=== PATIENT | female | born 1940 | race Caucasian/White ===

== ENCOUNTER → 2018-03-25 | Outpatient (CLI) | payer OTHER ==
[~2018-03-25] MED LIST: ATEN100 PO; ATEN50; CILO50 PO; CLOP75 PO; HCTZ; HYDCHL25 PO; LEVSOD50 PO; LOVA40 PO; LOVAZA
[2018-03-25 12:04] LABS: BASOPHILS ABSOLUTE AUTO 0.03 K/mm3 (0.00-0.23); BASOPHILS PERCENT AUTO 1 % (0-2); EOSINOPHILS PERCENT AUTO 2 % (0-6); Hematocrit 39.6 % (33.0-51.0); Hemoglobin 13.7 g/dL (11.5-16.0); IMMATURE GRAN ABSOLUTE AUTO 0.01 K/mm3 (0.00-0.10); IMMATURE GRAN PERCENT AUTO 0 % (0-1); LYMPHOCYTES ABSOLUTE AUTO 1.38 K/mm3 (0.84-5.20); LYMPHOCYTES PERCENT AUTO 23 % (21-46); MONOCYTES ABSOLUTE AUTO 0.54 K/mm3 (0.16-1.47); MONOCYTES PERCENT AUTO 9 % (4-13); Mean Corpuscular HGB 30.4 pg (26.0-34.0); Mean Corpuscular HGB Conc 34.6 g/dL (31.5-36.5); Mean Corpuscular Volume 88 fL (80-100); Mean Platelet Volume 10.5 fL (9.1-12.4); NEUTROPHILS ABSOLUTE AUTO 3.93 K/mm3 (1.96-9.15); NEUTROPHILS PERCENT AUTO 66 % (41-73); Platelet Count 221 K/mm3 (150-400); RDW Coefficient Variation 14.1 % (11.7-14.2); RDW Standard Deviation 44.8 fL (35.1-46.3); White Blood Cell Count 5.99 K/mm3 (4.00-11.30)
[2018-03-25 12:16] LABS: Albumin, Blood 3.7 g/dL (3.4-5.0); Albumin/Globulin Ratio 0.9 (0.8-1.8); Bilirubin, Total 0.4 mg/dL (0.1-1.0); Calcium, Blood 9.4 mg/dL (8.5-10.1); Potassium, Blood 3.5 mmol/L (3.5-5.5); Total Protein, Blood 7.7 g/dL (6.4-8.2)
== END ==
LOC: LAB EV 11:57 → LAB SHORT 11:57
PROVIDERS: Physician Assistant
DX: L03.119 Cellulitis of unspecified part of limb (principal); R06.00 Dyspnea, unspecified
CPT/HCPCS: 80053; 83880; 85025

== ENCOUNTER → 2019-03-18 | Outpatient (CLI) | payer OTHER ==
[~2019-03-18] MED LIST changes: +CILO100 PO; +CYCL0.05OP; +EUTHYROX88 MCG PO; +Lovastatin10 MG PO; +Prinivil10 MG PO
== END | disposition home or self-care (01) ==
LOC: LAB SHORT 07:35 → LAB EV 07:35
DX: L08.9 Local infection of the skin and subcutaneous tissue, unspecified (principal)
CPT/HCPCS: 87070; 87075; 87077; 87147; 87186; 87205

== ENCOUNTER 2019-06-20 10:48 | Day surgery (SDC) | payer OTHER ==
[~2019-06-20] VITALS: Ht 162.6 cm; Wt 79.6 kg
--- NOTE | 2019-06-20 11:52 | NUR ---
06/20/[address] LUEVANO NOTIFIED OF PT'S ELEVATED BLOOD PRESSURE'S. SEE VITAL SIGNS. NO NEW ORDERS GIVEN.
== END 2019-06-20 14:00 | disposition home or self-care (01) ==
LOC: ORSCSDS 10:48
PROVIDERS: Podiatrist Foot & Ankle Surgery
PROC: 0SGP04Z Fusion of Right Toe Phalangeal Joint with Internal Fixation Device, Open Approach (ICD-10-PCS; principal; 2019-06-20 12:00)
DX: M20.41 Other hammer toe(s) (acquired), right foot (principal); I10 Essential (primary) hypertension; E03.9 Hypothyroidism, unspecified; E78.5 Hyperlipidemia, unspecified; Z79.899 Other long term (current) drug therapy
CPT/HCPCS: 93005; 93010; J0690; J2250; J2704; J3010; J7120

== ENCOUNTER 2019-08-05 09:43 | Observation (INO) | payer OTHER ==
[~2019-08-05] VITALS: Ht 160 cm; Wt 79.2 kg
[~2019-08-05 09:43] MED LIST changes: +CEPH250A PO
--- NOTE | 2019-08-05 17:05 | NUR ---
PT FEELING FINE, UP TO BR WITH ASSISTANCE OF 1 STAFF. VOIDED, PT BACK TO BAY 1 AND SITTING IN CHAIR. DISCHARGE GONE OVER WITH DAUGHTER AND PT, PT STATES SHE'S FEELING DIZZY AND BECOMES UNRESPONSIVE WITH SNORING RESPIRATIONS. PT PALE AND NOT RESPONDING TO QUESTIONS, HAS PULSE AND IS BREATHING. HELP CALLED TO RECOVERY ROOM. PT BACK TO BED WITH ASSISTANCE AND PLACED ON MONITOR. HEART MONITOR SHOWS AFIB. EKG CONFIRMS AFIB. HORSE DOCTOR, DR. BARCLAY, NOTIFIED AND SEEN PT. PT HAS CONVERTED BACK INTO SINUS RHYTHM AND GOES IN AND OUT OF AFIB. PT TO BE ADMITTED TO HOSPITALIST OVER NIGHT. DAUGHTER REMAINS WITH PT.
[2019-08-05 19:17] LABS: BASOPHILS ABSOLUTE AUTO 0.05 K/mm3 (0.00-0.23); BASOPHILS PERCENT AUTO 0 % (0-2); EOSINOPHILS ABSOLUTE AUTO 0.02 K/mm3 (0.00-0.68); EOSINOPHILS PERCENT AUTO 0 % (0-6); Hematocrit 37.9 % (33.0-51.0); Hemoglobin 12.6 g/dL (11.5-16.0); IMMATURE GRAN ABSOLUTE AUTO 0.07 K/mm3 (0.00-0.10); IMMATURE GRAN PERCENT AUTO 1 % (0-1); LYMPHOCYTES ABSOLUTE AUTO 1.03 K/mm3 (0.84-5.20); LYMPHOCYTES PERCENT AUTO 8 % (21-46); MONOCYTES ABSOLUTE AUTO 0.63 K/mm3 (0.16-1.47); MONOCYTES PERCENT AUTO 5 % (4-13); Mean Corpuscular HGB 30.7 pg (26.0-34.0); Mean Corpuscular HGB Conc 33.2 g/dL (31.5-36.5); Mean Corpuscular Volume 92 fL (80-100); Mean Platelet Volume 10.5 fL (9.1-12.4); NEUTROPHILS ABSOLUTE AUTO 12.01 K/mm3 (1.96-9.15); NEUTROPHILS PERCENT AUTO 87 % (41-73); Platelet Count 236 K/mm3 (150-400); RDW Coefficient Variation 13.5 % (11.7-14.2); RDW Standard Deviation 45.7 fL (35.1-46.3); Red Blood Cell Count 4.11 M/mm3 (3.80-5.20); White Blood Cell Count 13.81 K/mm3 (4.00-11.30)
[2019-08-05 19:40] LABS: Alanine Aminotransfer (ALT/SGP 28 U/L (12-78); Albumin/Globulin Ratio 0.9 (0.8-1.8); Alk Phos 57 U/L (50-136); Anion Gap 7 mmol/L (6-16); Aspartate Aminotrans (AST/SGOT 21 U/L (12-37); Bilirubin, Total 0.4 mg/dL (0.1-1.0); Blood Urea Nitrogen 17 mg/dL (8-24); Bun/Creatinine Ratio 24.6 (12.0-20.0); CO2, Blood 25 mmol/L (21-32); Calcium, Blood 8.9 mg/dL (8.5-10.1); Chloride, Blood 110 mmol/L (98-108); Creatinine, Blood 0.69 mg/dL (0.40-1.00); Globulin, Blood 3.3 g/dL (2.2-4.0); Glomerular Filtration Rate >60 (60-); Glucose, Blood 130 mg/dL (70-99); Magnesium, Blood 1.9 mg/dL (1.6-2.4); Potassium, Blood 3.7 mmol/L (3.5-5.5); Sodium, Blood 142 mmol/L (136-145); Total Protein, Blood 6.3 g/dL (6.4-8.2)
--- NOTE | 2019-08-05 19:45 | NUR ---
Assumed care of pt at approx 1920. Pt taken to CT then imaging to pt room for cxr. Pt alert and oriented, answers questions appropriately but with slight delay. Pt appears mildly lethargic, resting with eyes closed. VSS and pt breathing easy, even, unlabored at rest on RA. NSR on tele. See admission assessment for detailed systems assessment. Pt with gangrenous R second toe being seen and cared for as outpatient per pt and MD notes. L groin access site with quarter sized dried bloody drainage on angioseal. No acute concerns to note at this time, will continue to monitor and provide care per orders.
--- NOTE | 2019-08-06 00:40 | NUR ---
Pt up to bedside commode. Pt standing for first time since syncopal episode. She denies dizziness, SOB, lightheadedness. No changes noted on tele with ambulation/transfer.
[2019-08-06 01:27] LABS: Anion Gap 7 mmol/L (6-16); Blood Urea Nitrogen 21 mg/dL (8-24); Bun/Creatinine Ratio 29.3 (12.0-20.0); CHOL/HDL RATIO 4.3; CO2, Blood 26 mmol/L (21-32); Calcium, Blood 8.9 mg/dL (8.5-10.1); Chloride, Blood 111 mmol/L (98-108); Cholesterol 155 mg/dL (50-200); Creatinine, Blood 0.72 mg/dL (0.40-1.00); Glomerular Filtration Rate >60 (60-); Glucose, Blood 124 mg/dL (70-99); HDL Cholesterol 36 mg/dL (>39); LDL/HDL RATIO 2.7; Low Density Lipoprotein Chol 98 mg/dL (0-110); Potassium, Blood 3.9 mmol/L (3.5-5.5); Sodium, Blood 144 mmol/L (136-145); Triglycerides 107 mg/dL (30-160); Very Low Density Lipoprot Chol 21 mg/dL (6-32)
--- NOTE | 2019-08-06 05:19 | NUR ---
SHIFT SUMMARY VSS this shift, no acute concerns to note overnight. Pt denies sx of lightheadedness or dizziness with ambulation, denies SOB or chest pain. Pt remains in NSR throughout this shift and no events on tele. No acute changes from initial shift assessment. She is alert and oriented, calls appropriately, makes needs known. Up to the bsc x1 this shift. Pt remains on RA R second toe wound noted and L groin access site unchanged from initial assessment. Pt with 2+ pitting edema to BLE. Pt denies need for pain medication this shift. Pt has slept on and off throughout majority of shift. Will continue to monitor and provide care until report off to day RN.
--- NOTE | 2019-08-06 08:30 | NUR ---
AM NOTE. ASSUMED CARE OF PT APROX 0700, PT IS A&Ox4 AND S/P REVASC RLE. ANGIO SITE IS INTACT WITH SMALL AMOUNT OF DRY BLOOD NOTED ON THE CHG DRESSING. PT'S VS STABLE AT THIS TIME. PT DENIES CHEST PAIN/PRESSURE, N/V OR SOB AT THIS TIME. PT IS ON RA, L/S CLEAR IN THE UPPER LOBES W/FINE CRACKLES NOTED IN THE LOWER LOBES. PT HAS 2+ EDEMA TO HER BLE PEDEAL PULSES ARE FAINT BUT PRESENT BILATERALLY. PT'S RIGHT MID TOE IS BLACK AND GANGRENOUS, PT IS GETTING TREATED ON OUT PT BASIS FOR THIS. CARDIOLOGY PROVIDER AT THE BEDSIDE, PT IS TO HAVE ANGIO IN THE AM, CONSENT SIGNED IN THE ROOM. CALL LIGHT IN REACH, BED IS LOCKED AND LOW WILL CONTINUE TO MONITOR.
[2019-08-06 12:37] LABS: International Normalized Ratio 1.21; Prothrombin Time Results 12.6 Sec (9.7-11.5)
--- NOTE | 2019-08-06 17:37 | NUR ---
SHIFT SUMMARY. NO ACUTE CHANGES NOTED THIS SHIFT. PT'S VS STABLE, NO EVENTS NOTED ON TELE. PT IS TO BE NPO AFTER MIDNIGHT FOR ANGIO IN THE AM. PT DENIES ANY CHEST PAIN/PRESSURE, N/V OR SOB. PT HAS BEEN SBA TO THE BSC. NO CHANGES, SWELLING, BLEEDING OR HEMATOMA NOTED TO THE LEFT GROIN SITE. CALL LIGHT IN REACH, BED IS LOCKED AND LOW WILL CONTINUE TO MONITOR UNTIL REPORT IS GIVEN TO ONCOMING RN.
--- NOTE | 2019-08-06 19:55 | NUR ---
Assumed care Pt presents sitting in bed, breathing easy, even and unlabored on RA. Pt in atrial fib seen on telemetry with rates ranging between 120-150. normotensive, denies SOB or chest pain. Alert and oriented, conversing approrpriately, uses call light to make needs known. Up to BSC with one assist without cardiac sx (continues to deny SOB, CP or pressure, Palpitations). Tele hvac installation technician notified this RN about rates sustaining in 160's. Immmediately, this RN to bedside. Pt continues to present in no sign of distress, breathing easy and unlabored. Asymoptomatic. Remains normotensive as documented. Pt spontaneously converted self from afib to NSR in 80's at 1942. Will continue to montior, no acute concerns to note at this time.
--- NOTE | 2019-08-06 20:51 | NUR ---
HEPRIN GTT BEGAN PER ORDER; 13 U/KG/HR AT 16.9 ML/HR VERIFIED WITH MERON STOVALL RN.
[2019-08-07 04:08] LABS: BASOPHILS ABSOLUTE AUTO 0.06 K/mm3 (0.00-0.23); BASOPHILS PERCENT AUTO 1 % (0-2); EOSINOPHILS ABSOLUTE AUTO 0.21 K/mm3 (0.00-0.68); EOSINOPHILS PERCENT AUTO 2 % (0-6); Hematocrit 34.2 % (33.0-51.0); Hemoglobin 11.1 g/dL (11.5-16.0); IMMATURE GRAN ABSOLUTE AUTO 0.03 K/mm3 (0.00-0.10); IMMATURE GRAN PERCENT AUTO 0 % (0-1); LYMPHOCYTES ABSOLUTE AUTO 2.08 K/mm3 (0.84-5.20); LYMPHOCYTES PERCENT AUTO 19 % (21-46); MONOCYTES ABSOLUTE AUTO 0.94 K/mm3 (0.16-1.47); MONOCYTES PERCENT AUTO 9 % (4-13); Mean Corpuscular HGB 30.7 pg (26.0-34.0); Mean Corpuscular HGB Conc 32.5 g/dL (31.5-36.5); Mean Platelet Volume 10.7 fL (9.1-12.4); NEUTROPHILS ABSOLUTE AUTO 7.38 K/mm3 (1.96-9.15); NEUTROPHILS PERCENT AUTO 69 % (41-73); Platelet Count 221 K/mm3 (150-400); RDW Coefficient Variation 14.1 % (11.7-14.2); RDW Standard Deviation 48.9 fL (35.1-46.3); Red Blood Cell Count 3.61 M/mm3 (3.80-5.20)
[2019-08-07 04:20] LABS: Mean Corpuscular Volume 95 fL (80-100)
[2019-08-07 04:33] LABS: Anion Gap 6 mmol/L (6-16); Blood Urea Nitrogen 34 mg/dL (8-24); Bun/Creatinine Ratio 40.7 (12.0-20.0); CO2, Blood 26 mmol/L (21-32); Calcium, Blood 8.6 mg/dL (8.5-10.1); Chloride, Blood 111 mmol/L (98-108); Creatinine, Blood 0.84 mg/dL (0.40-1.00); Glomerular Filtration Rate >60 (60-); Glucose, Blood 108 mg/dL (70-99); Potassium, Blood 3.6 mmol/L (3.5-5.5); Sodium, Blood 143 mmol/L (136-145)
--- NOTE | 2019-08-07 05:45 | NUR ---
Shift Summary Pt in NSR, VSS, no acute declines to note. Pt remains alert and oriented. No changes to neuro status from begining to end of shift. Pt involved and cooperative in care. SBA to BSC. denies cardiac sx. Denies SOB. Breathing is easy and unlabored. Pt on RA as at baseline. NPO after midnight per orders for angio this AM. This pt calls appropriately to make needs known. No complaints of pain overnight. No acute declines to note overnight. No changes from initial shift assessment. Will continue to monitor until day RN assumes care.
--- NOTE | 2019-08-07 07:55 | NUR ---
AM NOTE. ASSUMED CARE OF PT APROX 0700, PT IS A&Ox4 AND SBA IN THE ROOM. PT IS NPO FOR ANGIO THIS AM. PT IS NSR IN THE 70'S PER DISTRIBUTION ASSOCIATE, PT HAS BEEN FLIPPING FROM AFIB TO NSR T/O THE NIGHT. PT IS NOT SYMPTOMATIC WITH THESE CONVERSIONS. PT'S VS STABLE AT THIS TIME. PT DENIES CHEST PAIN/PRESSURE N/V OR SOB. HEPARIN GTT RUNNING AT ORDERED RATE. CALL LIGHT IN REACH, BED IS LOCKED AND LOW WILL CONTINUE TO MONITOR.
--- NOTE | 2019-08-07 10:21 | NUR ---
PT RETURNS FROM CONTINUOUS WASHER OPERATOR... PT RETURNED FROM CONTINUOUS WASHER OPERATOR AT 1015. PT HAD STENT PLACED IN THE PROX LAD. TR BAND WAS PLACED ON THE RIGHT WRIST W/13MLS IN THE TR BAND. PT'S FIRST 3 FINGERS ON THE RIGHT HAND ARE COOL, PURPLE WITH CAP REFILL >3. PT DENIES ANY PAIN, NUMBNESS/TINGLING TO THE RIGHT HAND AT THIS TIME. PULSE OX WAS PLACED ON THE RIGHT INDEX FINGER, GOOD PLETH AND SATS AT 97% ON RA. PT'S BP ON ARRIVAL WAS 95/62, RECHECK APROX 10 MINS LATER WAS 140/50. PT DENIES CHEST PAIN AT THIS TIME. PT IS IN NSR IN THE 60'S PER TAG MAKER. WILL CONTINUE TO MONITOR.
--- NOTE | 2019-08-07 17:43 | NUR ---
SHIFT SUMMARY. NO ACUTE NEGATIVE CHANGES NOTED THIS SHIFT. TR BAND WAS DEFLATED WITH NO BLEEDING. NO HEMATOMA, SWELLING OR REDNESS NOTED. PT'S VS HAVE BEEN STABLE T/O SHIFT. CALL LIGHT IN REACH, BED IS LOCKED AND LOW WILL CONTINUE TO MONITOR UNTIL REPORT IS GIVEN TO ONCOMING RN.
--- NOTE | 2019-08-07 19:20 | NUR ---
ASSESSMENT/ASSUMED CARE PT SITTING UP IN BED WATCHING TV. SON WENT HOME FOR THE NIGHT. PT DENEIS PAIN OR DISCOMFORT. UP TO BSC WITH STANDBY ASSIST. VOIDED CLEAR YELLOW URINE. BACK TO BED. RIGHT WRIST TR SITE CLEAR, ARM BOARD ON. REMINDER PT TO NOT USE ARM. LUNGS CLEAR ON ROOMAIR. RESP EVEN AND NONLABORED. DENIES SOB OR COUGH. HEART RATE REGULAR. DENIES CHEST PAIN OR PRESSURE. IV TO RIGHT AC SALINE LOCKED, SITE CLEAR. RIGHT FOOT WITH SECOND TOE BLACK. LEFT GROIN STABLE WITH DRSG INTACT.
[2019-08-08 04:24] LABS: BASOPHILS ABSOLUTE AUTO 0.05 K/mm3 (0.00-0.23); BASOPHILS PERCENT AUTO 1 % (0-2); EOSINOPHILS ABSOLUTE AUTO 0.17 K/mm3 (0.00-0.68); EOSINOPHILS PERCENT AUTO 2 % (0-6); Hematocrit 33.7 % (33.0-51.0); Hemoglobin 11.1 g/dL (11.5-16.0); IMMATURE GRAN ABSOLUTE AUTO 0.04 K/mm3 (0.00-0.10); IMMATURE GRAN PERCENT AUTO 0 % (0-1); LYMPHOCYTES ABSOLUTE AUTO 1.56 K/mm3 (0.84-5.20); LYMPHOCYTES PERCENT AUTO 15 % (21-46); MONOCYTES ABSOLUTE AUTO 0.95 K/mm3 (0.16-1.47); MONOCYTES PERCENT AUTO 9 % (4-13); Mean Corpuscular HGB Conc 32.9 g/dL (31.5-36.5); Mean Corpuscular Volume 94 fL (80-100); Mean Platelet Volume 10.6 fL (9.1-12.4); NEUTROPHILS ABSOLUTE AUTO 7.57 K/mm3 (1.96-9.15); NEUTROPHILS PERCENT AUTO 73 % (41-73); Platelet Count 215 K/mm3 (150-400); RDW Coefficient Variation 14.3 % (11.7-14.2); Red Blood Cell Count 3.58 M/mm3 (3.80-5.20); White Blood Cell Count 10.34 K/mm3 (4.00-11.30)
[2019-08-08 04:40] LABS: Anion Gap 6 mmol/L (6-16); Blood Urea Nitrogen 31 mg/dL (8-24); Bun/Creatinine Ratio 36.7 (12.0-20.0); CO2, Blood 27 mmol/L (21-32); Calcium, Blood 8.8 mg/dL (8.5-10.1); Chloride, Blood 108 mmol/L (98-108); Creatinine, Blood 0.84 mg/dL (0.40-1.00); Glomerular Filtration Rate >60 (60-); Glucose, Blood 102 mg/dL (70-99); Potassium, Blood 3.8 mmol/L (3.5-5.5); Sodium, Blood 141 mmol/L (136-145)
--- NOTE | 2019-08-08 06:07 | NUR ---
SHIFT SUMMARY PT RESTED QUIETLY DURING THE NIGHT. RIGHT WRIST TR SITE CLEAR, ARM BOARD ON. LEFT GROIN SITE STABLE. PT UP TO BSC WITH ONE ASSIST. DENIES PAIN OR DISCOMFORT. VSS. POSSIBLE DC TODAY. RIGHT 2ND TOE BLACK WEAK PEDAL PULSES. REPORT TO ON COMING NURSE
--- NOTE | 2019-08-08 09:09 | NUR ---
AM NOTE. ASSUMED CARE OF PT APROX 0700, PT IS A&Ox4 AND SBA IN THE ROOM. PT IS S/P ANGIO W/STENT PLACMENT IN THE PROX LAD. PT'S VS STABLE. DENIES CHEST PAIN/PRESSURE, N/V OR SOB. PT IS TO D/C HOME TODAY PER CARDIOLOGY. R WRIST SITE IS C/D/I, NO SWELLING, REDNESS OR HEMATOMA NOTED. L/S CLEAR DIM IN THE BASES, BT PRESENT AND NORMOACTIVE, ABD IS SOFT AND NONTENDER TO PALP. CALL LIGHT IN REACH, BED IS LOCKED AND LOW WILL CONTINUE TO MONITOR.
[2019-08-08] MEDS ORDERED: CLOP75 PO (11:18)
[2019-08-08] MEDS ORDERED: Synthroid88 MCG PO (11:19)
[2019-08-08] MEDS ORDERED: Prinivil10 MG PO (11:20)
[2019-08-08] MEDS ORDERED: Aspir 8181 MG PO (11:22)
[2019-08-08] MEDS ORDERED: FURO20 PO (11:24)
[2019-08-08] MEDS ORDERED: METO25ER PO (11:27)
[2019-08-08] MEDS ORDERED: POTCHL20ER PO (11:28)
[2019-08-08] MEDS ORDERED: XARELTO20 MG PO (11:30)
[2019-08-08] MEDS ORDERED: ATOR40TA PO (11:32)
== END 2019-08-08 13:39 | disposition home or self-care (01) ==
LOC: MHTC 09:43 → PCU 18:45 → MHTC 22:44 → PCU 23:25
PROVIDERS: Internal Medicine Cardiovascular Disease; Nurse Practitioner Acute Care; ADMIT Internal Medicine
DX: R55 Syncope and collapse (principal); I25.10 Atherosclerotic heart disease of native coronary artery without angina pectoris; I48.0 Paroxysmal atrial fibrillation; I47.1 Supraventricular tachycardia; R06.00 Dyspnea, unspecified; E87.6 Hypokalemia; R79.89 Other specified abnormal findings of blood chemistry; I11.0 Hypertensive heart disease with heart failure; I50.31 Acute diastolic (congestive) heart failure; E03.9 Hypothyroidism, unspecified; M20.40 Other hammer toe(s) (acquired), unspecified foot; I73.9 Peripheral vascular disease, unspecified; E78.5 Hyperlipidemia, unspecified; G47.33 Obstructive sleep apnea (adult) (pediatric); Z86.73 Personal history of transient ischemic attack (TIA), and cerebral infarction without residual deficits; Z79.899 Other long term (current) drug therapy; Z79.01 Long term (current) use of anticoagulants
CPT/HCPCS: 36415; 37224; 37228; 70450; 71045; 75625; 75716; 75774; 76937; 80048; 80053; 80061; 82947; 83735; 84443; 84484; 85025; 85347; 85610; 85730; 90686; 92978; 93005; 93010; 93306; 93458; 93880; 94762; 96374; 96375; 96376; 99152; 99153; C1725; C1753; C1760; C1769; C1874; C1887; C1894; C2623; C9600; G0378; J0360; J1644; J1940; J2250; J3010; J7030; Q9967

== ENCOUNTER 2019-09-15 10:25 | Day surgery (SDC) | payer OTHER ==
[~2019-09-15] VITALS: Ht 160 cm; Wt 78.3 kg
[~2019-09-15 10:25] MED LIST changes: +ATOR40TA PO; +Aspir 8181 MG PO; +FURO20 PO; +METO25ER PO; +POTCHL20ER PO; +Synthroid88 MCG PO; +XARELTO20 MG PO
--- NOTE | 2019-09-15 12:07 | NUR ---
PATIENT'S BLOOD PRESSURE IS ELEVATED TODAY ABOVE HER NORMAL. WILL REPEAT ONCE THE PATIENT HAS SETTLED IN MORE. DR LUEVANO HERE AT BEDSIDE NOW.
--- NOTE | 2019-09-15 12:18 | NUR ---
History, Chart, Medications and Allergies reviewed before start of procedure. Patient confirms NPO status and agrees with scheduled surgery. Lungs clear T/O to Auscultation. Pre-Op teaching done. Pt verbalizes understanding. Patient States Post-Procedure ride home has been arranged. Patient reports completing Chlorhexadine shower X2 prior to admission to hospital. PATIENT HAS DENTURES IN PLACE, WILL ASK DR CASIANO IF THEY CAN REMAIN PER PATIENT REQUEST. PATIENT HAD RING ON LEFT RING FINGER, REMOVED BY PATIENT AND PLACED IN CLEAR BAGGIE WITH HER PATIENT NAME STICKER IN HER BELONGINGS. PATIENT SENT HER PURSE WITH HER DAUGHTER AT ADMIT. DAUGHTER VASU VILLATORO CAN BE REACHED AT [phone] FOR HER RIDE HOME. WILL NOT DO CHLORHEXIDINE WIPE TO SURGICAL SIDE DUE TO IMPAIRED SKIN INTEGRITY. PATIENT HAS PINKISH CRACKED SKIN ON CALF,HORTON, AND FOOT ON THE RIGHT. PER DR LUEVANO, OK TO PLACE PAS ON NON-OPERATIVE SIDE.
--- NOTE | 2019-09-15 12:28 | NUR ---
PER DR CASIANO, OK TO LEAVE DENTURES AND HEARING DEVICES IN PLACE BILATERALLY. WILL PLACE GLASSES IN PACU FOR PATIENT.
--- NOTE | 2019-09-15 12:29 | NUR ---
METER CALIBRATOR REPORT COMPLETED AT BEDSIDE WITH RUTH HELLER.
--- NOTE | 2019-09-15 14:53 | NUR ---
PT HAD CONTINUED C/O 5/10 PAIN DUE TO "PRESSURE ON OLD SORE" NEAR RIGHT LITTLE TOE. DR. LUEVANO CONTACTED AND ADVISED TO REMOVE COBAN DRESSING AND APPLY CE WRAP. ONEIDA GOMEZ RN APPLIED CE WRAP AT BEDSIDE AND PT STATED INTANT RELIEF.
--- NOTE | 2019-09-15 15:16 | NUR ---
Patient up to Ambulate independently. Gait steady. Discharge instructions reviewed with patient. Patient verbalizes understanding. Copy given to patient to take home. Dressing to procedure site clean, dry, intact with no visible drainage, swelling, erythema or bruising noted. Patient States Post-Procedure ride home has been arranged. Discharged via wheelchair to private car for ride home.
== END 2019-09-15 15:10 | disposition home or self-care (01) ==
LOC: ORSCMMR 10:25 → ORD 12:00 → ORSCMMR 12:00
PROVIDERS: Podiatrist Foot & Ankle Surgery
PROC: 0Y6R0Z0 Detachment at Right 2nd Toe, Complete, Open Approach (ICD-10-PCS; principal; 2019-09-15 12:00)
DX: I96 Gangrene, not elsewhere classified (principal); M86.171 Other acute osteomyelitis, right ankle and foot; I10 Essential (primary) hypertension; G47.33 Obstructive sleep apnea (adult) (pediatric); E03.9 Hypothyroidism, unspecified; E78.5 Hyperlipidemia, unspecified; Z79.899 Other long term (current) drug therapy; Z79.82 Long term (current) use of aspirin
CPT/HCPCS: 88305; 88311; A9270-GY; J0690; J2250; J2704; J3010; J7120

== ENCOUNTER 2019-10-24 00:57 | Day surgery (SDC) | payer OTHER | END 2019-10-24 23:03 | disposition home or self-care (01) | LOC: WOUND 00:57 | DX: L97.512 Non-pressure chronic ulcer of other part of right foot with fat layer exposed (principal); L97.429 Non-pressure chronic ulcer of left heel and midfoot with unspecified severity; I10 Essential (primary) hypertension; E03.9 Hypothyroidism, unspecified; Z79.02 Long term (current) use of antithrombotics/antiplatelets; Z79.82 Long term (current) use of aspirin; Z79.899 Other long term (current) drug therapy; Z79.01 Long term (current) use of anticoagulants | CPT/HCPCS: G0463 ==

== ENCOUNTER 2019-10-31 01:05 | Day surgery (SDC) | payer OTHER | END 2019-10-31 23:21 | disposition home or self-care (01) | LOC: WOUND 01:05 | DX: L97.512 Non-pressure chronic ulcer of other part of right foot with fat layer exposed (principal); L97.429 Non-pressure chronic ulcer of left heel and midfoot with unspecified severity; I10 Essential (primary) hypertension; E03.9 Hypothyroidism, unspecified; Z79.02 Long term (current) use of antithrombotics/antiplatelets; Z79.899 Other long term (current) drug therapy; Z79.01 Long term (current) use of anticoagulants ==

== ENCOUNTER 2019-11-07 02:30 | Day surgery (SDC) | payer OTHER | END 2019-11-07 23:50 | disposition home or self-care (01) | LOC: WOUND 02:30 | DX: L97.512 Non-pressure chronic ulcer of other part of right foot with fat layer exposed (principal); L97.429 Non-pressure chronic ulcer of left heel and midfoot with unspecified severity; I10 Essential (primary) hypertension; E03.9 Hypothyroidism, unspecified; Z79.02 Long term (current) use of antithrombotics/antiplatelets; Z79.82 Long term (current) use of aspirin; Z79.899 Other long term (current) drug therapy | CPT/HCPCS: G0463 ==

== ENCOUNTER 2019-11-12 00:17 | Day surgery (SDC) | payer OTHER | END 2019-11-12 22:57 | disposition home or self-care (01) | LOC: WOUND 00:17 | DX: L97.512 Non-pressure chronic ulcer of other part of right foot with fat layer exposed (principal); L97.429 Non-pressure chronic ulcer of left heel and midfoot with unspecified severity ==

== ENCOUNTER 2019-11-17 06:13 | Day surgery (SDC) | payer OTHER ==
[~2019-11-17] VITALS: Ht 157.5 cm; Wt 80.0 kg
[2019-11-17 08:10] LABS: BASOPHILS ABSOLUTE AUTO 0.04 K/mm3 (0.00-0.23); BASOPHILS PERCENT AUTO 1 % (0-2); EOSINOPHILS ABSOLUTE AUTO 0.26 K/mm3 (0.00-0.68); EOSINOPHILS PERCENT AUTO 3 % (0-6); Hematocrit 43.3 % (33.0-51.0); Hemoglobin 14.3 g/dL (11.5-16.0); IMMATURE GRAN ABSOLUTE AUTO 0.02 K/mm3 (0.00-0.10); IMMATURE GRAN PERCENT AUTO 0 % (0-1); LYMPHOCYTES PERCENT AUTO 18 % (21-46); MONOCYTES ABSOLUTE AUTO 0.85 K/mm3 (0.16-1.47); MONOCYTES PERCENT AUTO 10 % (4-13); Mean Corpuscular HGB 30.1 pg (26.0-34.0); Mean Corpuscular Volume 91 fL (80-100); Mean Platelet Volume 10.9 fL (9.1-12.4); NEUTROPHILS ABSOLUTE AUTO 5.64 K/mm3 (1.96-9.15); NEUTROPHILS PERCENT AUTO 68 % (41-73); Platelet Count 202 K/mm3 (150-400); RDW Coefficient Variation 15.5 % (11.7-14.2); RDW Standard Deviation 50.9 fL (35.1-46.3); Red Blood Cell Count 4.75 M/mm3 (3.80-5.20); White Blood Cell Count 8.31 K/mm3 (4.00-11.30)
[2019-11-17 08:26] LABS: Calcium, Blood 9.5 mg/dL (8.5-10.1); Creatinine, Blood 0.95 mg/dL (0.40-1.00); Potassium, Blood 4.2 mmol/L (3.5-5.5)
[2019-11-17 08:29] LABS: Prothrombin Time Results 10.7 Sec (9.7-11.5)
--- NOTE | 2019-11-17 11:09 | NUR ---
Noelle from Dr. Paul office will call patient for follow up appointment in six weeks. Office called.
--- NOTE | 2019-11-17 13:32 | NUR ---
Pt pain 4/ patient states her back feels better, chronic back pain. Dr. Rodrigues notified and will come see the patient regarding pain medications for home. Pt is seeing PCP in two days. Encourage her and daughter Jayne to discuss pain concerns as well as sleeping, Blood pressure issues with PCP. Pt steady in walking, she verbalizing understanding of discharge instructions. IV removed cath intact.
--- NOTE | 2019-11-17 13:42 | NUR ---
Pt given ami therapy pain schedule for free classes.
--- NOTE | 2019-11-17 13:51 | NUR ---
Left heal with non adhesive dressing over patients ulcer- paper tape used. Pt is seen in the wound clinic. Pt dressed preparing for discharge.
[2019-11-17] MEDS ORDERED: HYDR1TAB94 PO (14:22)
--- NOTE | 2019-11-17 15:02 | NUR ---
pT HAS BEEN WAITING FOR return for prescription signture. Pt is laying on bed talking with daughter. She is ready for discharge once Dr. blackmon's patient. SBAR to Lyla Combs RN
--- NOTE | 2019-11-17 15:54 | NUR ---
PT PROVIDED WITH HARD COPY RX FOR NORCO MEDICATION. COPY MADE OF RX AND PLACED INTO PT CHART. PT RIDE IS HERE TO DRIVE HER HOME. NO ACUTE DISTRESS NOTED. PT ABLE TO AMBULATE WITH STEADY GAIT. DENIES ANY PAIN AT TIME OF DISCHARGE. PEDAL ACCESS SITE AND FEMORAL ACCESS SITES ON LEFT APPEAR TO BE STABLE, SOFT NON TENDER WITH NO ACTIVE BLEEDING NOTED.
== END 2019-11-17 16:30 | disposition home or self-care (01) ==
LOC: MHTC 06:13
PROVIDERS: Radiology Diagnostic Radiology
DX: I70.212 Atherosclerosis of native arteries of extremities with intermittent claudication, left leg (principal)
CPT/HCPCS: 37224; 37228; 37232; 75710; 75774; 76937; 80048; 85025; 85347; 85610; 99152; 99153; C1725; C1769; C1887; C1894; C2623; J0360; J1644; J2250; J3010; J7030; Q9967

== ENCOUNTER 2019-11-21 00:29 | Day surgery (SDC) | payer OTHER ==
[~2019-11-21 00:29] MED LIST changes: +HYDR1TAB94 PO
== END 2019-11-21 23:56 | disposition home or self-care (01) ==
LOC: WOUND 00:29
DX: L97.512 Non-pressure chronic ulcer of other part of right foot with fat layer exposed (principal); I10 Essential (primary) hypertension; L97.422 Non-pressure chronic ulcer of left heel and midfoot with fat layer exposed; E03.9 Hypothyroidism, unspecified; Z79.02 Long term (current) use of antithrombotics/antiplatelets; Z79.899 Other long term (current) drug therapy; Z79.01 Long term (current) use of anticoagulants

== ENCOUNTER 2019-12-05 01:34 | Day surgery (SDC) | payer OTHER | END 2019-12-05 23:23 | disposition home or self-care (01) | LOC: WOUND 01:34 | DX: L97.429 Non-pressure chronic ulcer of left heel and midfoot with unspecified severity (principal); I10 Essential (primary) hypertension; E03.9 Hypothyroidism, unspecified; Z79.02 Long term (current) use of antithrombotics/antiplatelets; Z79.01 Long term (current) use of anticoagulants; Z79.899 Other long term (current) drug therapy ==

== ENCOUNTER 2019-12-12 02:46 | Day surgery (SDC) | payer OTHER | END 2019-12-12 23:11 | disposition home or self-care (01) | LOC: WOUND 02:46 | DX: L97.422 Non-pressure chronic ulcer of left heel and midfoot with fat layer exposed (principal); I10 Essential (primary) hypertension; E03.9 Hypothyroidism, unspecified; M19.90 Unspecified osteoarthritis, unspecified site ==

== ENCOUNTER 2019-12-25 00:19 | Day surgery (SDC) | payer OTHER | END 2019-12-25 23:45 | disposition home or self-care (01) | LOC: WOUND 00:19 | DX: L97.429 Non-pressure chronic ulcer of left heel and midfoot with unspecified severity (principal) | CPT/HCPCS: G0463 ==

== ENCOUNTER 2020-01-16 00:12 | Day surgery (SDC) | payer OTHER | END 2020-01-16 23:00 | disposition home or self-care (01) | LOC: WOUND 00:12 | DX: L97.429 Non-pressure chronic ulcer of left heel and midfoot with unspecified severity (principal); L97.821 Non-pressure chronic ulcer of other part of left lower leg limited to breakdown of skin; L97.819 Non-pressure chronic ulcer of other part of right lower leg with unspecified severity; I10 Essential (primary) hypertension; E03.9 Hypothyroidism, unspecified; Z79.02 Long term (current) use of antithrombotics/antiplatelets; Z79.899 Other long term (current) drug therapy; Z79.01 Long term (current) use of anticoagulants ==

== ENCOUNTER 2020-01-20 00:27 | Day surgery (SDC) | payer OTHER | END 2020-01-20 22:52 | disposition home or self-care (01) | LOC: WOUND 00:27 | DX: L97.429 Non-pressure chronic ulcer of left heel and midfoot with unspecified severity (principal); L97.821 Non-pressure chronic ulcer of other part of left lower leg limited to breakdown of skin; L97.819 Non-pressure chronic ulcer of other part of right lower leg with unspecified severity ==

== ENCOUNTER 2020-01-23 00:47 | Day surgery (SDC) | payer OTHER | END 2020-01-23 23:13 | disposition home or self-care (01) | LOC: WOUND 00:47 | DX: L97.429 Non-pressure chronic ulcer of left heel and midfoot with unspecified severity (principal); L97.821 Non-pressure chronic ulcer of other part of left lower leg limited to breakdown of skin; L97.819 Non-pressure chronic ulcer of other part of right lower leg with unspecified severity; Z79.01 Long term (current) use of anticoagulants; Z79.02 Long term (current) use of antithrombotics/antiplatelets; Z79.899 Other long term (current) drug therapy ==

== ENCOUNTER 2020-01-26 00:18 | Day surgery (SDC) | payer OTHER | END 2020-01-26 22:58 | disposition home or self-care (01) | LOC: WOUND 00:18 | DX: L97.429 Non-pressure chronic ulcer of left heel and midfoot with unspecified severity (principal); L97.821 Non-pressure chronic ulcer of other part of left lower leg limited to breakdown of skin; L97.819 Non-pressure chronic ulcer of other part of right lower leg with unspecified severity ==

== ENCOUNTER 2020-01-30 00:22 | Day surgery (SDC) | payer OTHER | END 2020-01-30 22:42 | disposition home or self-care (01) | LOC: WOUND 00:22 | DX: L97.429 Non-pressure chronic ulcer of left heel and midfoot with unspecified severity (principal); L97.821 Non-pressure chronic ulcer of other part of left lower leg limited to breakdown of skin; L97.819 Non-pressure chronic ulcer of other part of right lower leg with unspecified severity; I10 Essential (primary) hypertension; E03.9 Hypothyroidism, unspecified; M19.91 Primary osteoarthritis, unspecified site; I73.9 Peripheral vascular disease, unspecified; Z79.01 Long term (current) use of anticoagulants; Z79.899 Other long term (current) drug therapy ==

== ENCOUNTER 2020-02-06 00:22 | Day surgery (SDC) | payer OTHER | END 2020-02-06 23:02 | disposition home or self-care (01) | LOC: WOUND 00:22 | DX: L97.429 Non-pressure chronic ulcer of left heel and midfoot with unspecified severity (principal); L97.821 Non-pressure chronic ulcer of other part of left lower leg limited to breakdown of skin; L97.819 Non-pressure chronic ulcer of other part of right lower leg with unspecified severity ==

== ENCOUNTER 2020-02-13 00:26 | Day surgery (SDC) | payer OTHER | END 2020-02-13 23:14 | disposition home or self-care (01) | LOC: WOUND 00:26 | DX: L97.429 Non-pressure chronic ulcer of left heel and midfoot with unspecified severity (principal); L97.821 Non-pressure chronic ulcer of other part of left lower leg limited to breakdown of skin; L97.819 Non-pressure chronic ulcer of other part of right lower leg with unspecified severity; I10 Essential (primary) hypertension; E03.9 Hypothyroidism, unspecified; Z79.02 Long term (current) use of antithrombotics/antiplatelets; Z79.899 Other long term (current) drug therapy; Z79.01 Long term (current) use of anticoagulants ==

== ENCOUNTER 2020-02-20 00:30 | Day surgery (SDC) | payer OTHER ==
[2020-02-21] MEDS ORDERED: ACET325 PO ×2 (13:41)
== END 2020-02-20 23:10 | disposition home or self-care (01) ==
LOC: WOUND 00:30
DX: L97.429 Non-pressure chronic ulcer of left heel and midfoot with unspecified severity (principal); L97.821 Non-pressure chronic ulcer of other part of left lower leg limited to breakdown of skin; L97.819 Non-pressure chronic ulcer of other part of right lower leg with unspecified severity; I10 Essential (primary) hypertension; E03.9 Hypothyroidism, unspecified; Z79.02 Long term (current) use of antithrombotics/antiplatelets; Z79.899 Other long term (current) drug therapy; Z79.01 Long term (current) use of anticoagulants

== ENCOUNTER 2020-02-20 22:29 | Observation (INO) | payer OTHER ==
[~2020-02-20] VITALS: Ht 162.6 cm; Wt 79.8 kg
[2020-02-20 23:26] LABS: Source, Urine Clean Catch
[2020-02-20 23:30] LABS: Appearance, Urine Clear (Clear); Bilirubin, Urine Neg (Neg); Blood, Urine 1+ (Neg); Color, Urine Yellow (P-Yellow); Glucose Qualitative, Urine Neg (Neg); Ketones, Urine 1+ (Neg); Leukocyte Esterase, Urine 1+ (Neg); Nitrite, Urine Neg (Neg); Protein, Urine Neg (Neg); Specific Gravity, Urine 1.015 (1.003-1.022); Urobilinogen, Urine NORM (Normal); pH, Urine 6.5 (5.0-8.0)
[2020-02-20 23:37] LABS: Squamous Epithelial Cells Few /hpf (Few); White Blood Cells, Urine 0-2 /hpf (0-5)
[2020-02-20 23:38] LABS: Amorphous Light (0-Heavy); Bacteria Few /hpf; Mucus Mod (0-Heavy)
[2020-02-21 01:28] LABS: BASOPHILS ABSOLUTE AUTO 0.05 K/mm3 (0.00-0.23); BASOPHILS PERCENT AUTO 0 % (0-2); EOSINOPHILS ABSOLUTE AUTO 0.11 K/mm3 (0.00-0.68); EOSINOPHILS PERCENT AUTO 1 % (0-6); Hematocrit 37.9 % (33.0-51.0); Hemoglobin 12.3 g/dL (11.5-16.0); IMMATURE GRAN ABSOLUTE AUTO 0.08 K/mm3 (0.00-0.10); IMMATURE GRAN PERCENT AUTO 1 % (0-1); LYMPHOCYTES ABSOLUTE AUTO 1.28 K/mm3 (0.84-5.20); LYMPHOCYTES PERCENT AUTO 8 % (21-46); MONOCYTES ABSOLUTE AUTO 1.35 K/mm3 (0.16-1.47); MONOCYTES PERCENT AUTO 8 % (4-13); Mean Corpuscular HGB 30.1 pg (26.0-34.0); Mean Corpuscular HGB Conc 32.5 g/dL (31.5-36.5); Mean Corpuscular Volume 93 fL (80-100); Mean Platelet Volume 11.3 fL (9.1-12.4); NEUTROPHILS ABSOLUTE AUTO 13.47 K/mm3 (1.96-9.15); NEUTROPHILS PERCENT AUTO 82 % (41-73); Platelet Count 240 K/mm3 (150-400); RDW Coefficient Variation 15.5 % (11.7-14.2); RDW Standard Deviation 52.6 fL (35.1-46.3); Red Blood Cell Count 4.09 M/mm3 (3.80-5.20); White Blood Cell Count 16.34 K/mm3 (4.00-11.30)
[2020-02-21 01:44] LABS: International Normalized Ratio 1.02; Prothrombin Time Results 10.9 Sec (9.7-11.5)
[2020-02-21 01:48] LABS: Alanine Aminotransfer (ALT/SGP 37 U/L (12-78); Albumin, Blood 3.5 g/dL (3.4-5.0); Albumin/Globulin Ratio 0.9 (0.8-1.8); Alk Phos 87 U/L (50-136); Anion Gap 6 mmol/L (6-16); Aspartate Aminotrans (AST/SGOT 32 U/L (12-37); Bilirubin, Total 0.4 mg/dL (0.1-1.0); Blood Urea Nitrogen 25 mg/dL (8-24); Bun/Creatinine Ratio 27.7 (12.0-20.0); CO2, Blood 30 mmol/L (21-32); Calcium, Blood 9.1 mg/dL (8.5-10.1); Chloride, Blood 104 mmol/L (98-108); Globulin, Blood 3.8 g/dL (2.2-4.0); Glomerular Filtration Rate >60 (60-); Glucose, Blood 140 mg/dL (70-99); Potassium, Blood 4.1 mmol/L (3.5-5.5); Sodium, Blood 140 mmol/L (136-145); Total Protein, Blood 7.3 g/dL (6.4-8.2)
[2020-02-21 05:39] LABS: BASOPHILS ABSOLUTE AUTO 0.05 K/mm3 (0.00-0.23); BASOPHILS PERCENT AUTO 0 % (0-2); EOSINOPHILS ABSOLUTE AUTO 0.13 K/mm3 (0.00-0.68); EOSINOPHILS PERCENT AUTO 1 % (0-6); Hematocrit 37.6 % (33.0-51.0); Hemoglobin 12.1 g/dL (11.5-16.0); IMMATURE GRAN ABSOLUTE AUTO 0.08 K/mm3 (0.00-0.10); IMMATURE GRAN PERCENT AUTO 0 % (0-1); LYMPHOCYTES ABSOLUTE AUTO 1.37 K/mm3 (0.84-5.20); LYMPHOCYTES PERCENT AUTO 8 % (21-46); MONOCYTES ABSOLUTE AUTO 2.02 K/mm3 (0.16-1.47); MONOCYTES PERCENT AUTO 11 % (4-13); Mean Corpuscular HGB 30.3 pg (26.0-34.0); Mean Corpuscular HGB Conc 32.2 g/dL (31.5-36.5); Mean Corpuscular Volume 94 fL (80-100); NEUTROPHILS ABSOLUTE AUTO 14.36 K/mm3 (1.96-9.15); NEUTROPHILS PERCENT AUTO 80 % (41-73); RDW Coefficient Variation 15.6 % (11.7-14.2); RDW Standard Deviation 52.9 fL (35.1-46.3); Red Blood Cell Count 3.99 M/mm3 (3.80-5.20); White Blood Cell Count 18.01 K/mm3 (4.00-11.30)
--- NOTE | 2020-02-21 05:47 | NUR ---
SHIFT SUMMARY PT NEW ER ADMIT ([id number]) NO ACUTE CHANGES SINCE ASSUMING CARE, NO C/O ANY KIND, DR PATTEN IN TO SEE PT @ 0520, ADDING ORDERS NOW, LAB PRINCE H&H @ 0440-SKIPPED NEW ORDER FOR 05 DRAW- WILL CONT Q6 ORDER FOR NEXT DRAW. PT BEDRESTING WATCHING TV AT THIS TIME, CALL LIGHT IN REACH, WILL CONT TO MONITOR UNTIL REPORT GIVEN TO DAY RN.
[2020-02-21 06:05] LABS: Mean Platelet Volume 11.1 fL (9.1-12.4); Platelet Count 224 K/mm3 (150-400)
[2020-02-21 12:27] LABS: Hematocrit 40.7 % (33.0-51.0); Hemoglobin 12.9 g/dL (11.5-16.0)
[2020-02-21] MEDS ORDERED: ACET325 PO ×2 (13:41)
--- NOTE | 2020-02-21 15:16 | NUR ---
DISCHARGE DISCHARGE MEDICATIONS AND INSTRUCTIONS EXPLAINED TO PATIENT. PATIENT STATED UNDERSTANDING. PATIENT TO CALL ON SUNDAY TO SCHEDULE FOLLOW UP WITH PCP. IV REMOVED WITHOUT DIFFICUTLY. BELONGINGS WITH PATIENT. PATIENT TRANSFERED TO PRIVATE VEHICLE VIA WHEELCHAIR.
== END 2020-02-21 14:31 | disposition home or self-care (01) ==
LOC: ER 22:29 → MEDS 22:30
PROVIDERS: Emergency Medicine; ADMIT Internal Medicine
DX: N94.89 Other specified conditions associated with female genital organs and menstrual cycle (principal); I73.9 Peripheral vascular disease, unspecified; I10 Essential (primary) hypertension; E03.9 Hypothyroidism, unspecified; I48.21 Permanent atrial fibrillation; Z79.01 Long term (current) use of anticoagulants; Z79.02 Long term (current) use of antithrombotics/antiplatelets; Z79.899 Other long term (current) drug therapy
CPT/HCPCS: 36415; 36556; 51702; 51798; 72192; 74176; 80053; 81001; 85014; 85018; 85025; 85610; 85730; 86850; 86900; 86901; 87086; 96360; 99285-25; A9270-GY; J7030

== ENCOUNTER 2020-02-27 00:32 | Day surgery (SDC) | payer OTHER ==
[~2020-02-27 00:32] MED LIST changes: +ACET325 PO
== END 2020-02-27 23:18 | disposition home or self-care (01) ==
LOC: WOUND 00:32
DX: L97.429 Non-pressure chronic ulcer of left heel and midfoot with unspecified severity (principal); L97.821 Non-pressure chronic ulcer of other part of left lower leg limited to breakdown of skin; L97.819 Non-pressure chronic ulcer of other part of right lower leg with unspecified severity; I73.9 Peripheral vascular disease, unspecified; I10 Essential (primary) hypertension; E03.9 Hypothyroidism, unspecified; M19.90 Unspecified osteoarthritis, unspecified site

== ENCOUNTER 2020-03-04 11:02 | Emergency (ER) | payer OTHER ==
[~2020-03-04] VITALS: Ht 157.5 cm; Wt 79.8 kg
[2020-03-04 12:25] LABS: BASOPHILS ABSOLUTE AUTO 0.05 K/mm3 (0.00-0.23); BASOPHILS PERCENT AUTO 0 % (0-2); EOSINOPHILS PERCENT AUTO 3 % (0-6); Hematocrit 39.1 % (33.0-51.0); Hemoglobin 12.7 g/dL (11.5-16.0); IMMATURE GRAN ABSOLUTE AUTO 0.07 K/mm3 (0.00-0.10); IMMATURE GRAN PERCENT AUTO 1 % (0-1); LYMPHOCYTES ABSOLUTE AUTO 1.05 K/mm3 (0.84-5.20); LYMPHOCYTES PERCENT AUTO 8 % (21-46); MONOCYTES ABSOLUTE AUTO 1.56 K/mm3 (0.16-1.47); MONOCYTES PERCENT AUTO 12 % (4-13); Mean Corpuscular HGB 30.4 pg (26.0-34.0); Mean Corpuscular HGB Conc 32.5 g/dL (31.5-36.5); Mean Corpuscular Volume 94 fL (80-100); Mean Platelet Volume 9.6 fL (9.1-12.4); NEUTROPHILS ABSOLUTE AUTO 10.07 K/mm3 (1.96-9.15); NEUTROPHILS PERCENT AUTO 76 % (41-73); Platelet Count 274 K/mm3 (150-400); RDW Coefficient Variation 15.9 % (11.7-14.2); RDW Standard Deviation 54.3 fL (35.1-46.3); Red Blood Cell Count 4.18 M/mm3 (3.80-5.20)
[2020-03-04 12:27] LABS: Alanine Aminotransfer (ALT/SGP 71 U/L (12-78); Albumin, Blood 2.9 g/dL (3.4-5.0); Albumin/Globulin Ratio 0.6 (0.8-1.8); Alk Phos 87 U/L (50-136); Anion Gap 5 mmol/L (6-16); Aspartate Aminotrans (AST/SGOT 48 U/L (12-37); Bilirubin, Total 0.7 mg/dL (0.1-1.0); Blood Urea Nitrogen 22 mg/dL (8-24); Bun/Creatinine Ratio 25.9 (12.0-20.0); CO2, Blood 27 mmol/L (21-32); Calcium, Blood 9.2 mg/dL (8.5-10.1); Chloride, Blood 107 mmol/L (98-108); Creatinine, Blood 0.85 mg/dL (0.40-1.00); Glomerular Filtration Rate >60 (60-); Glucose, Blood 89 mg/dL (70-99); Potassium, Blood 4.9 mmol/L (3.5-5.5); Sodium, Blood 139 mmol/L (136-145); Total Protein, Blood 7.9 g/dL (6.4-8.2)
[2020-03-04] MEDS ORDERED: Bactrim Ds Tab1 EACH PO (17:11)
[2020-03-04] MEDS ORDERED: CEPHALEXIN500 MG PO (17:11)
== END 2020-03-04 17:30 | disposition home or self-care (01) ==
LOC: ER 11:02
PROVIDERS: Emergency Medicine
DX: L03.115 Cellulitis of right lower limb (principal); I10 Essential (primary) hypertension; Z86.73 Personal history of transient ischemic attack (TIA), and cerebral infarction without residual deficits; G47.30 Sleep apnea, unspecified; Z79.899 Other long term (current) drug therapy; E03.9 Hypothyroidism, unspecified; I73.9 Peripheral vascular disease, unspecified
CPT/HCPCS: 36415; 80053; 85025; 93971; 99284-25; A9270-GY

== ENCOUNTER 2020-03-05 00:42 | Day surgery (SDC) | payer OTHER ==
[~2020-03-05 00:42] MED LIST changes: +Bactrim Ds Tab1 EACH PO; +CEPHALEXIN500 MG PO
== END 2020-03-05 23:24 | disposition home or self-care (01) ==
LOC: WOUND 00:42
DX: L03.115 Cellulitis of right lower limb (principal); L97.429 Non-pressure chronic ulcer of left heel and midfoot with unspecified severity; L97.821 Non-pressure chronic ulcer of other part of left lower leg limited to breakdown of skin; L97.819 Non-pressure chronic ulcer of other part of right lower leg with unspecified severity; I10 Essential (primary) hypertension; E03.9 Hypothyroidism, unspecified; Z79.899 Other long term (current) drug therapy; Z79.02 Long term (current) use of antithrombotics/antiplatelets
CPT/HCPCS: 87070; 87075; 87077; 87147; 87186; 87205

== ENCOUNTER 2020-03-05 14:47 | Inpatient (IN) | payer OTHER ==
[~2020-03-05] VITALS: Ht 157.5 cm; Wt 79.1 kg
[2020-03-05 17:41] LABS: BASOPHILS ABSOLUTE AUTO 0.04 K/mm3 (0.00-0.23); BASOPHILS PERCENT AUTO 0 % (0-2); EOSINOPHILS PERCENT AUTO 2 % (0-6); Hemoglobin 11.5 g/dL (11.5-16.0); IMMATURE GRAN ABSOLUTE AUTO 0.06 K/mm3 (0.00-0.10); IMMATURE GRAN PERCENT AUTO 0 % (0-1); LYMPHOCYTES ABSOLUTE AUTO 0.82 K/mm3 (0.84-5.20); LYMPHOCYTES PERCENT AUTO 6 % (21-46); MONOCYTES ABSOLUTE AUTO 1.44 K/mm3 (0.16-1.47); MONOCYTES PERCENT AUTO 10 % (4-13); Mean Corpuscular HGB 29.6 pg (26.0-34.0); Mean Corpuscular HGB Conc 31.9 g/dL (31.5-36.5); Mean Corpuscular Volume 93 fL (80-100); Mean Platelet Volume 9.6 fL (9.1-12.4); NEUTROPHILS ABSOLUTE AUTO 11.29 K/mm3 (1.96-9.15); NEUTROPHILS PERCENT AUTO 81 % (41-73); Platelet Count 360 K/mm3 (150-400); RDW Coefficient Variation 15.9 % (11.7-14.2); RDW Standard Deviation 54.4 fL (35.1-46.3); Red Blood Cell Count 3.89 M/mm3 (3.80-5.20); White Blood Cell Count 13.95 K/mm3 (4.00-11.30)
[2020-03-05 17:55] LABS: Albumin, Blood 3.1 g/dL (3.4-5.0); Albumin/Globulin Ratio 0.6 (0.8-1.8); Bilirubin, Total 0.6 mg/dL (0.1-1.0); Bun/Creatinine Ratio 23.4 (12.0-20.0); Calcium, Blood 9.5 mg/dL (8.5-10.1); Creatinine, Blood 1.07 mg/dL (0.40-1.00); Potassium, Blood 4.6 mmol/L (3.5-5.5); Total Protein, Blood 8.1 g/dL (6.4-8.2)
[2020-03-06 04:42] LABS: BASOPHILS ABSOLUTE AUTO 0.03 K/mm3 (0.00-0.23); BASOPHILS PERCENT AUTO 0 % (0-2); EOSINOPHILS PERCENT AUTO 2 % (0-6); Hematocrit 31.5 % (33.0-51.0); Hemoglobin 10.1 g/dL (11.5-16.0); IMMATURE GRAN ABSOLUTE AUTO 0.07 K/mm3 (0.00-0.10); IMMATURE GRAN PERCENT AUTO 1 % (0-1); LYMPHOCYTES ABSOLUTE AUTO 0.88 K/mm3 (0.84-5.20); LYMPHOCYTES PERCENT AUTO 7 % (21-46); MONOCYTES ABSOLUTE AUTO 1.37 K/mm3 (0.16-1.47); MONOCYTES PERCENT AUTO 10 % (4-13); Mean Corpuscular HGB 29.7 pg (26.0-34.0); Mean Corpuscular HGB Conc 32.1 g/dL (31.5-36.5); Mean Corpuscular Volume 93 fL (80-100); Mean Platelet Volume 9.4 fL (9.1-12.4); NEUTROPHILS ABSOLUTE AUTO 10.66 K/mm3 (1.96-9.15); NEUTROPHILS PERCENT AUTO 80 % (41-73); Platelet Count 304 K/mm3 (150-400); RDW Standard Deviation 53.8 fL (35.1-46.3); White Blood Cell Count 13.31 K/mm3 (4.00-11.30)
[2020-03-06 05:00] LABS: Anion Gap 4 mmol/L (6-16); Blood Urea Nitrogen 26 mg/dL (8-24); Bun/Creatinine Ratio 28.2 (12.0-20.0); CO2, Blood 26 mmol/L (21-32); Calcium, Blood 8.5 mg/dL (8.5-10.1); Chloride, Blood 106 mmol/L (98-108); Creatinine, Blood 0.92 mg/dL (0.40-1.00); Glomerular Filtration Rate >60 (60-); Glucose, Blood 101 mg/dL (70-99); Potassium, Blood 4.4 mmol/L (3.5-5.5); Sodium, Blood 136 mmol/L (136-145)
--- NOTE | 2020-03-06 06:30 | NUR ---
SHIFT SUMMARY- PT. NEW ADMIT FROM ER. A&OX3, PLEASANT AND COOPERATIVE WITH CARE. PT. WITH CELLULTITS OF THE RT LEG. PT. HAD NO C/O PAIN OR DISCOMFORT DURING THE NIGHT. ASLEEP T/O MOST OF THE SHIFT. NO APPARENT DISTRESS NOTED. VSS. CONSULT IN PLACE FOR PODIATRY. CALL LIGHT WITHIN REACH AND SIDE RAILS UP X2. WILL CONT TO MONITOR.
--- NOTE | 2020-03-06 15:59 | NUR ---
SHIFT SUMMARY PT IS A/O X 4 WITH PAIN TO HER RIGHT FOOT. DR LUEVANO SAW HER AT THE BEDSIDE THIS MORNING AND GAVE NO NEW ORDERS BUT DID BUT A NEW DRESSING TO HER RIGHT FOOT. SHE CONTINUES ON IV ABO WITH NO ADVERSE REACTION OBSERVED. FAMILY HAS BEEN UPDATED AT THE REQUEST OF THE PT. PT HAS BEEN A STAND BY ASSIST TO THE BSC. SHE HAS BEEN ELEVATING HER LEGS BUT DR PERSON FELT IS BEST THAT SHE LEAVE THEM IN A DEPENDENT POSITION TO HELP WITH THE PAIN AND THIS HAS BEEN HELPFUL THUS FAR. PT IS PLEASANT AND COOPERATIVE WITH HER CARE AND ABLE TO MAKE HER NEEDS KNOWN.
--- NOTE | 2020-03-07 04:16 | NUR ---
SHIFT SUMMARY- PT. PLEASANT AND COOPERATIVE WITH CARE. HAD NO ACUTE CHANGES OVERNIGHT. NO C/O PAIN THIS SHIFT. BANDAGE APPLIED BY DR. LUEVANO NOTED TO HAVE DRAINAGE. REINFORCED DRESSING, PT. TOLERATED WELL. PT. ABLE TO USE THE BSC INDEPENDENTLY. DENIED ANY NEEDS DURING THE NIGHT. CALL LIGHT WITHIN REACH AND SIDE RAILS UP X2. WILL CONT TO MONITOR.
[2020-03-07 05:06] LABS: BASOPHILS ABSOLUTE AUTO 0.04 K/mm3 (0.00-0.23); BASOPHILS PERCENT AUTO 0 % (0-2); EOSINOPHILS ABSOLUTE AUTO 0.58 K/mm3 (0.00-0.68); EOSINOPHILS PERCENT AUTO 5 % (0-6); Hematocrit 31.9 % (33.0-51.0); Hemoglobin 10.1 g/dL (11.5-16.0); IMMATURE GRAN ABSOLUTE AUTO 0.08 K/mm3 (0.00-0.10); IMMATURE GRAN PERCENT AUTO 1 % (0-1); LYMPHOCYTES ABSOLUTE AUTO 0.91 K/mm3 (0.84-5.20); LYMPHOCYTES PERCENT AUTO 7 % (21-46); MONOCYTES ABSOLUTE AUTO 1.07 K/mm3 (0.16-1.47); MONOCYTES PERCENT AUTO 9 % (4-13); Mean Corpuscular HGB 29.4 pg (26.0-34.0); Mean Corpuscular HGB Conc 31.7 g/dL (31.5-36.5); Mean Corpuscular Volume 93 fL (80-100); Mean Platelet Volume 9.4 fL (9.1-12.4); NEUTROPHILS ABSOLUTE AUTO 9.86 K/mm3 (1.96-9.15); NEUTROPHILS PERCENT AUTO 79 % (41-73); Platelet Count 345 K/mm3 (150-400); RDW Standard Deviation 54.3 fL (35.1-46.3); Red Blood Cell Count 3.43 M/mm3 (3.80-5.20); White Blood Cell Count 12.54 K/mm3 (4.00-11.30)
[2020-03-07 05:27] LABS: Bun/Creatinine Ratio 27.1 (12.0-20.0); Creatinine, Blood 0.96 mg/dL (0.40-1.00)
--- NOTE | 2020-03-07 18:36 | NUR ---
SHIFT SUMMARY PT UP TO BSC SEVERAL TIMES TODAY BUT WOULD START TO HAVE SIGNIFICANT PAIN TO RLE WHETHER IT WAS ELEVATED OR DEPENDENT. PAIN MEDS WOULD HELP FOR A SHORT TIME BUT THEN BE INEFFECTIVE. STARTED HAVING PT USE A BEDPAN AND PAIN WITH PAIN MEDS HAS IMPROVED.
--- NOTE | 2020-03-08 04:04 | NUR ---
SHIFT SUMMARY- PT. HAS HAD NO ACUTE CHANGES TO CONDITION. NO C/O PAIN DURING THE NIGHT. PT. USING THE BEDPAN OCCASIONALLY TO MINIMIZE PAIN TO RT FOOT WOUND. BANDAGE TO RT FOOT C/D/I. PT. ASLEEP T/O MOST OF THE SHIFT. NO APPARENT DISTRESS NOTED. CALL LIGHT WITHIN REACH, SIDE RAILS UP X2, AND BED IN LOW POSITION. WILL CONT TO MONITOR.
[2020-03-08 05:40] LABS: BASOPHILS ABSOLUTE AUTO 0.04 K/mm3 (0.00-0.23); BASOPHILS PERCENT AUTO 0 % (0-2); EOSINOPHILS ABSOLUTE AUTO 0.49 K/mm3 (0.00-0.68); EOSINOPHILS PERCENT AUTO 4 % (0-6); Hematocrit 33.7 % (33.0-51.0); Hemoglobin 10.7 g/dL (11.5-16.0); IMMATURE GRAN ABSOLUTE AUTO 0.07 K/mm3 (0.00-0.10); IMMATURE GRAN PERCENT AUTO 1 % (0-1); LYMPHOCYTES ABSOLUTE AUTO 1.03 K/mm3 (0.84-5.20); LYMPHOCYTES PERCENT AUTO 8 % (21-46); MONOCYTES ABSOLUTE AUTO 0.97 K/mm3 (0.16-1.47); MONOCYTES PERCENT AUTO 8 % (4-13); Mean Corpuscular HGB 28.8 pg (26.0-34.0); Mean Corpuscular HGB Conc 31.8 g/dL (31.5-36.5); Mean Corpuscular Volume 91 fL (80-100); NEUTROPHILS ABSOLUTE AUTO 9.94 K/mm3 (1.96-9.15); NEUTROPHILS PERCENT AUTO 79 % (41-73); Platelet Count 371 K/mm3 (150-400); RDW Coefficient Variation 15.9 % (11.7-14.2); RDW Standard Deviation 52.4 fL (35.1-46.3); Red Blood Cell Count 3.72 M/mm3 (3.80-5.20); White Blood Cell Count 12.54 K/mm3 (4.00-11.30)
[2020-03-08 06:01] LABS: Anion Gap 6 mmol/L (6-16); Blood Urea Nitrogen 16 mg/dL (8-24); Bun/Creatinine Ratio 21.7 (12.0-20.0); CO2, Blood 23 mmol/L (21-32); Calcium, Blood 8.9 mg/dL (8.5-10.1); Chloride, Blood 106 mmol/L (98-108); Creatinine, Blood 0.74 mg/dL (0.40-1.00); Glomerular Filtration Rate >60 (60-); Glucose, Blood 110 mg/dL (70-99); Potassium, Blood 4.3 mmol/L (3.5-5.5); Sodium, Blood 135 mmol/L (136-145)
[2020-03-08 17:43] LABS: Vancomycin, Trough 5.2 ug/mL (5.0-10.0)
--- NOTE | 2020-03-08 19:33 | NUR ---
SHIFT SUMMARY: NO ACUTE CHANGES TO REPORT THIS SHIFT. PT A&O; [place]; CALM AND COOEPRATIVE WITH CARE. 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 IV ABX CONTINUING. REPORT GIVEN TO ONCOMING RN.
[2020-03-09 05:27] LABS: BASOPHILS ABSOLUTE AUTO 0.04 K/mm3 (0.00-0.23); BASOPHILS PERCENT AUTO 0 % (0-2); EOSINOPHILS ABSOLUTE AUTO 0.48 K/mm3 (0.00-0.68); EOSINOPHILS PERCENT AUTO 4 % (0-6); Hematocrit 35.3 % (33.0-51.0); Hemoglobin 11.4 g/dL (11.5-16.0); IMMATURE GRAN ABSOLUTE AUTO 0.09 K/mm3 (0.00-0.10); IMMATURE GRAN PERCENT AUTO 1 % (0-1); LYMPHOCYTES ABSOLUTE AUTO 1.28 K/mm3 (0.84-5.20); LYMPHOCYTES PERCENT AUTO 9 % (21-46); MONOCYTES ABSOLUTE AUTO 1.16 K/mm3 (0.16-1.47); MONOCYTES PERCENT AUTO 9 % (4-13); Mean Corpuscular HGB 29.4 pg (26.0-34.0); Mean Corpuscular HGB Conc 32.3 g/dL (31.5-36.5); Mean Corpuscular Volume 91 fL (80-100); Mean Platelet Volume 9.3 fL (9.1-12.4); NEUTROPHILS ABSOLUTE AUTO 10.64 K/mm3 (1.96-9.15); NEUTROPHILS PERCENT AUTO 78 % (41-73); Platelet Count 433 K/mm3 (150-400); RDW Standard Deviation 53.3 fL (35.1-46.3); Red Blood Cell Count 3.88 M/mm3 (3.80-5.20); White Blood Cell Count 13.69 K/mm3 (4.00-11.30)
[2020-03-09 05:51] LABS: Anion Gap 7 mmol/L (6-16); Blood Urea Nitrogen 16 mg/dL (8-24); Bun/Creatinine Ratio 21.6 (12.0-20.0); CO2, Blood 22 mmol/L (21-32); Chloride, Blood 106 mmol/L (98-108); Creatinine, Blood 0.74 mg/dL (0.40-1.00); Glomerular Filtration Rate >60 (60-); Glucose, Blood 105 mg/dL (70-99); Potassium, Blood 4.3 mmol/L (3.5-5.5); Sodium, Blood 135 mmol/L (136-145)
--- NOTE | 2020-03-09 06:14 | NUR ---
SHIFT SUMMARY AOX4. VSS. REPORTS 5/10 PAIN IN R. LEG, DENIES NEED FOR PAIN MEDICATION- STATES PAIN @TOLERABLE LEVEL & WORSE WHEN STANDING OR PUTTING WEIGHT ON LEG. RLE IS RED, WARM, DRY, SCALY W/FLAKY SKIN, BANDAGE WAS CHANGED YESTERDAY BY MD & IS STILL C/D/I. PT DENIES N/V, OR DYSPNEA. CALL LIGHT IN REACH. WCTM.
--- NOTE | 2020-03-09 18:35 | NUR ---
SHIFT SUMMARY: NO ACUTE CHANGES TO REPORT THIS SHIFT. PT A&O; CALM AND COOPERATIVE WITH CARE. MEDICATED FOR R FOOT PAIN PER EMAR. PT ON BEDREST R/T R FOOT PAIN. PODIATRY (DR LUEVANO) FOLLOWING. EXPECTED REVASCULARIZATION OF RLE (DR SORTO) PER CONSULT TODAY. WCTM.
[2020-03-09 23:49] LABS: International Normalized Ratio 1.23
--- NOTE | 2020-03-10 01:16 | NUR ---
PCU ARRIVAL FROM SWITCH TECHNICIAN / MALLIKA PT BROUGHT TO PCU-05 BY BED FROM SWITCH TECHNICIAN @ APPROX 2230. PT A&O X4, VSS. R GROIN SITE WNL, NO BLEEDING, NO HEMATOMA. R FOOT W/ TIBIAL AND PEDAL ACCESS SITES W/ SCANT AMOUNT OF BLOOD NOTED TO EACH. PT ALSO W/ SMALL AMOUNT OF THICK MAROONISH DRAINAGE FROM 2ND TOE AMPUTATION SITE UPON ARRIVAL TO UNIT. PT ALSO W/ SMALL AMOUNT OF BLOODY SPUTUM UPON ARRIVAL, STATING SHE HAS HAD THIS "SINCE I'VE BEEN HERE. FOR A FEW DAYS." BILAT PEDAL PULSES PRESENT USING DOPPLER. AT APPROX 0000 PT NOTED TO HAVE NEW SMALL AMOUNT OF OOZING FROM TIBIAL ACCESS SITE & 2ND TOE AMPUTATION SITE. PRESSURE HELD FOR APPROX 15 MIN UNTIL HEMOSTASIS OBTAINED. NEW ORDER FOR IV HEPARIN GTT TO BE INITIATED. CALL TO PHARMACIST & MD PAREKH W/ UPDATE ON PT BLOODY SPUTUM AND OOZING FROM R FOOT ACCESS SITE AND AMPUTATION SITE. MD PAREKH W/ INSTRUCTION TO START HEPARIN PER PHARMACY AND CONTINUE TO MONITOR. ALSO W/ INSTRUCTION TO NOTIFY MD SORTO FOR FURTHER HEPARIN INQUIRY IF PT HAS INCREASED AMOUNT OF BLOODY SPUTUM. WILL CONTINUE TO MONITOR AND PROVIDE CARE.
--- NOTE | 2020-03-10 06:36 | NUR ---
SHIFT SUMMARY PT A&O X4. VSS. MONITOR SHOWS AFIB, HR 100-130's. SPO2 > 92% ON RA. R GROIN SITE WNL W/ NO BLEEDING & NO HEMATOMA. R TIBIAL ACCESS SITE & 2ND TOE AMPUTATION SITE W/ SMALL AMOUNT OF OOZING THIS SHIFT, STOPPED W/ MANUAL PRESSURE HELD, SEE PREVIOUS NOTE. R PEDAL ACCESS SITE WNL. BILAT PEDAL PULSES PRESENT USING DOPPLER. PT COMPLIANT W/ LYING FLAT, AVOIDING GROIN FLEXION FOR 6 HRS POST REVASCULARIZATION PER MD ORDER. PT C/O BACK, L KNEE & NECK PAIN, MEDICATED PER EMAR X3 THIS SHIFT. PT AWAKE MUCH OF NIGHT, NOW SLEEPING THIS AM. HEPARIN GTT INFUSING PER ORDERS. WILL CONTINUE TO MONITOR & PROVIDE CARE UNTIL REPORT OFF TO DAY SHIFT RN.
--- NOTE | 2020-03-10 09:10 | NUR ---
AM NOTE... ASSUMED CARE OF PT APROX 0700. PT IS A&Ox4 AND WAS ADMITTED FOR CELLULITIS AND STENTS PLACE BY DR. SORTO. PT'S VS STABLE AT THIS TIME. PEDAL PULSES FOUND BY DOPPLER ONLY. PT DENIES PAIN AT THIS TIME. HEPARIN GTT RUNNING PER ORDERS. ALL ANIGO SITES HAVE SMALL AMOUT OF OLD BLOOD, NO SWELLING OR HEMATOMAS NOTED. ABD HAS MODERATE DISTENTION AND IS TENDER TO PALP TO THE RLQ. PT IS IN AFIB IN THE 100'S-120'S. 1+ EDEMA TO THE RLE. CALL LIGHT IN REACH WILL CONTINUE TO [place].
[2020-03-10 15:47] LABS: BASOPHILS ABSOLUTE AUTO 0.05 K/mm3 (0.00-0.23); BASOPHILS PERCENT AUTO 0 % (0-2); EOSINOPHILS ABSOLUTE AUTO 0.16 K/mm3 (0.00-0.68); EOSINOPHILS PERCENT AUTO 1 % (0-6); Hematocrit 33.1 % (33.0-51.0); Hemoglobin 10.8 g/dL (11.5-16.0); IMMATURE GRAN ABSOLUTE AUTO 0.18 K/mm3 (0.00-0.10); IMMATURE GRAN PERCENT AUTO 1 % (0-1); LYMPHOCYTES PERCENT AUTO 6 % (21-46); MONOCYTES ABSOLUTE AUTO 2.08 K/mm3 (0.16-1.47); MONOCYTES PERCENT AUTO 10 % (4-13); Mean Corpuscular HGB 29.8 pg (26.0-34.0); Mean Corpuscular HGB Conc 32.6 g/dL (31.5-36.5); Mean Corpuscular Volume 91 fL (80-100); Mean Platelet Volume 9.3 fL (9.1-12.4); NEUTROPHILS ABSOLUTE AUTO 17.97 K/mm3 (1.96-9.15); NEUTROPHILS PERCENT AUTO 83 % (41-73); Platelet Count 459 K/mm3 (150-400); RDW Coefficient Variation 16.3 % (11.7-14.2); RDW Standard Deviation 54.3 fL (35.1-46.3); Red Blood Cell Count 3.62 M/mm3 (3.80-5.20); White Blood Cell Count 21.74 K/mm3 (4.00-11.30)
[2020-03-10 15:59] LABS: Bun/Creatinine Ratio 25.6 (12.0-20.0); Creatinine, Blood 1.21 mg/dL (0.40-1.00); Potassium, Blood 5.8 mmol/L (3.5-5.5)
[2020-03-10 16:18] LABS: PCO2 Arterial 29.6 mmHg (35-45); PO2 Arterial 159 mmHg (80-100); pH Blood Arterial 7.44 (7.35-7.45)
--- NOTE | 2020-03-10 16:30 | NUR ---
PT UPDATE... AT APROX 1500 PT'S DAUGHTER IN LAW CALLED THIS RN FOR AN UPDATE, SHE ALSO TOLD THIS RN THAT SHE WAS WORRIED THAT THE PT SOUNDED "CONFUSED AND RUMMY" WHEN SHE SPOKE WITH HER ON THE PHONE SHORTLY BEFORE CALLING THIS RN. THIS RN PROVIDED THE FAMILY WITH AN UPDATE AND WENT TO ASSESS THE PT. THE PT WAS UP IN THE CHAIR AFTER WORKING WITH PT/OT, PT WAS RESTING WITH EYES CLOSED BUT OPENED EYES TO VERBAL STIMULI AND ANSWERED QUESTIONS APROPPRIATELY, PT WAS OFFERED TO LAY BACK IN THE BED AND SHE REFUSED. APROX 30MINS LATER THIS RN AND STEEL PAN FORM PLACING SUPERVISOR ENTERED THE ROOM AND FOUND THAT THE PT WAS NOT RESPONDING, PT WOULD OPEN HER LEFT EYE BUT NOT HER RIGHT AND WAS UNABLE TO KEEP THE EYE OPEN, PT WAS UNABLE TO RESPOND TO QUESTIONS AT ALL, IT WAS NOTED THAT THE PT WAS DROOLING AND THE WHOLE FRONT OF HER GOWN WAS WET WITH SALIVA. PT'S VS WERE TAKEN AND PT'S BP WAS 93/56, HR 138, RR24, 97.6. SHE WAS PALE, AND DIAPHORETIC. PT WAS GOTTEN BACK INTO BED USING THE LIFT. PT'S HOSPITAL PROVIDER WAS CALLED AND NEW ORDRES OBAINED FOR STAT CT OF THE HEAD. LABS DRAWN AND VS WERE MONITORED. WHEN PT RETURNED FROM CT SHE WAS MORE AWAKE AND ALERT. CALL LIGHT IN REACH WILL CONTINUE TO MONITOR.
[2020-03-10 17:26] LABS: Vancomycin, Trough 14.2 ug/mL (5.0-10.0)
--- NOTE | 2020-03-10 19:34 | NUR ---
SHIFT SUMMARY... NO ACUTE NEGATIVE CHANGES SINCE PREVIOUS NOTE. PT'S VS HAVE BEEN STABLE AND PT HAS BEEN A&Ox4. PT HAS BEEN SEEN BY CARDIOLOGY AND PODIATRY THIS AFTERNOON. 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 HEPARIN GTT RUNNING PER ORDERS. PT'S FAMILY UPDATED TO THE PLAN OF CARE AND TODAY'S EVENTS. A NEW POWERGLIDE WAS PLACED BY THE NURSE HOSPICE MUSIC THERAPY. CALL LIGHT IN REACH WILL CONTINUE TO MONITOR UNTIL REPORT IS GIVENT COLBY HELLER.
[2020-03-10 20:20] LABS: Alanine Aminotransfer (ALT/SGP 130 U/L (12-78); Aspartate Aminotrans (AST/SGOT 61 U/L (12-37)
[2020-03-10 20:23] LABS: Troponin I <0.015 ng/mL (0.000-0.040)
[2020-03-10 20:24] LABS: Anion Gap 6 mmol/L (6-16); Blood Urea Nitrogen 33 mg/dL (8-24); Bun/Creatinine Ratio 29.2 (12.0-20.0); CO2, Blood 23 mmol/L (21-32); Calcium, Blood 8.9 mg/dL (8.5-10.1); Chloride, Blood 107 mmol/L (98-108); Creatinine, Blood 1.13 mg/dL (0.40-1.00); Glomerular Filtration Rate 49 (60-); Glucose, Blood 141 mg/dL (70-99); Potassium, Blood 4.9 mmol/L (3.5-5.5); Sodium, Blood 136 mmol/L (136-145)
[2020-03-11 04:43] LABS: BASOPHILS ABSOLUTE AUTO 0.03 K/mm3 (0.00-0.23); BASOPHILS PERCENT AUTO 0 % (0-2); EOSINOPHILS ABSOLUTE AUTO 0.54 K/mm3 (0.00-0.68); EOSINOPHILS PERCENT AUTO 4 % (0-6); Hematocrit 26.8 % (33.0-51.0); Hemoglobin 8.6 g/dL (11.5-16.0); IMMATURE GRAN ABSOLUTE AUTO 0.07 K/mm3 (0.00-0.10); IMMATURE GRAN PERCENT AUTO 1 % (0-1); LYMPHOCYTES PERCENT AUTO 7 % (21-46); MONOCYTES ABSOLUTE AUTO 1.25 K/mm3 (0.16-1.47); MONOCYTES PERCENT AUTO 8 % (4-13); Mean Corpuscular HGB 29.5 pg (26.0-34.0); Mean Corpuscular HGB Conc 32.1 g/dL (31.5-36.5); Mean Corpuscular Volume 92 fL (80-100); Mean Platelet Volume 9.1 fL (9.1-12.4); NEUTROPHILS ABSOLUTE AUTO 12.39 K/mm3 (1.96-9.15); NEUTROPHILS PERCENT AUTO 81 % (41-73); Platelet Count 365 K/mm3 (150-400); RDW Coefficient Variation 16.2 % (11.7-14.2); RDW Standard Deviation 53.9 fL (35.1-46.3); Red Blood Cell Count 2.92 M/mm3 (3.80-5.20); White Blood Cell Count 15.28 K/mm3 (4.00-11.30)
[2020-03-11 05:01] LABS: Anion Gap 5 mmol/L (6-16); Blood Urea Nitrogen 28 mg/dL (8-24); Bun/Creatinine Ratio 30.2 (12.0-20.0); CO2, Blood 24 mmol/L (21-32); Calcium, Blood 8.2 mg/dL (8.5-10.1); Chloride, Blood 110 mmol/L (98-108); Creatinine, Blood 0.93 mg/dL (0.40-1.00); Glomerular Filtration Rate >60 (60-); Glucose, Blood 95 mg/dL (70-99); Potassium, Blood 4.7 mmol/L (3.5-5.5); Sodium, Blood 139 mmol/L (136-145)
--- NOTE | 2020-03-11 06:06 | NUR ---
SHIFT SUMMARY PT A&O X4. VSS. MONITOR SHOWS AFIB, HR 80's-100. SPO2 > 92% ON RA. NO EVENTS OR CHANGES OVER NIGHT. PT NPO SINCE MIDNIGHT FOR POTENTIAL R FOOT PARTIAL AMPUTATION TODAY. HEPARIN GTT & NS GTT INFUSING PER ORDERS. WILL CONTINUE TO MONITOR AND PROVIDE CARE UNTIL REPORT OFF TO DAY SHIFT RN.
[2020-03-11 07:04] LABS: Alanine Aminotransfer (ALT/SGP 110 U/L (12-78); Aspartate Aminotrans (AST/SGOT 54 U/L (12-37)
--- NOTE | 2020-03-11 08:31 | NUR ---
AM NOTE... ASSUMED CARE OF PT APROX 0700. PT IS A&Ox4. PT WAS TO HAVE PARTIAL FOOT/TOE AMPUTATION THIS AM, PT'S FOOT AND RIGHT MIDDLE TOE LOOK MUCH IMPROVED FROM YESTERDAY, THE MIDDLE TOE IS NOT PURPLE/DUSKY. THE FOOT STILL HAS 1+ EDEMA, WARM AND RED. PULSES FOUND BY DOPPLER ON BOTH FEET. PT'S VS STABLE THIS AM. PT IS VERY AWAKE AND CHEERFUL WITH GOOD COLOR IN HER CHEEKS. CARDIOLOGY PROVIDER AT THE BEDSIDE, DR. SORTO AT THE BEDSIDE THIS AM WELL. THIS RN CALLED DR. LUEVANO AND UPDATED HIM ON THE PT'S CONDITION AND CURRENT LABS AND THE SURGERY HAS BEEN D/C'D FOR NOW. PT'S FAMILY WAS UPDATED WELL. PT IS IN AFIB IN THE 80'S-110'S, OTHER VS STABLE AT THIS TIME. L/S CLEAR IN THE UPPER/MID LOBE WITH FINE CRACKLES NOTED IN THE BASES, PT IS ON RA. BT PRESENT AND HYPOACTIVE ABD IS MOD DISTENDED, FIRM AND TENDER TO PALP IN THE RLQ. HEPARIN GTT RUNNING PER ORDERS, NS RUNNING AT 150MLS/HR. CALL LIGHT IN REACH WILL CONTINUE TO MONITOR
--- NOTE | 2020-03-11 16:39 | NUR ---
PT ARRIVED TO ROOM 343, RECEIVED REPORT FROM IMER HELLER FROM PCU 5. PT HAS 20G IV ON R FOREARM, AND POWERGLIDE ON CELESTE. PT HAS R GROIN ACCESS SITE FROM REVASCULARIZATION. PT RLE WOUND SITE AND DRESSING IN PLACED. PT HEEL TOUCH WEIGHT BEARING. PT IS A/OX4. PT IS ON TELE; ON ROOM AIR; PT IS 2 PERSON ASSIST. ONGOING CARE.
--- NOTE | 2020-03-11 20:56 | NUR ---
2044 PT ASSISTED BACK TO BED AFTER UTILIZING BSC X 2 ASSIST; HEEL WEIGHT BEARING TO RLE WHILE WEARING WALKING CAST BOOT; PT VITAL SIGNS ARE STABLE; PTS HEART RATE 140-150 PER MELLY--PATROL GUARD; PT DENIES PAIN; PT GIVEN H.S. MEDS TO INCLUDE TOPROL 50MG PO; THIS NURSE ADVISED MAUREEN PIERRE STENOGRAPHER [employer] SHOP NURSE OF HIGH HEART RATE; PLAN TO RECHECK VITALS AND HEART RATE IN 1 HOUR SINCE PO MEDS JUST GIVEN (THIS NURSE ADVISED PATROL GUARD).
[2020-03-12 05:34] LABS: BASOPHILS ABSOLUTE AUTO 0.04 K/mm3 (0.00-0.23); BASOPHILS PERCENT AUTO 0 % (0-2); EOSINOPHILS ABSOLUTE AUTO 0.52 K/mm3 (0.00-0.68); EOSINOPHILS PERCENT AUTO 5 % (0-6); Hematocrit 26.1 % (33.0-51.0); Hemoglobin 8.4 g/dL (11.5-16.0); IMMATURE GRAN ABSOLUTE AUTO 0.07 K/mm3 (0.00-0.10); IMMATURE GRAN PERCENT AUTO 1 % (0-1); LYMPHOCYTES ABSOLUTE AUTO 0.94 K/mm3 (0.84-5.20); LYMPHOCYTES PERCENT AUTO 8 % (21-46); MONOCYTES ABSOLUTE AUTO 1.17 K/mm3 (0.16-1.47); MONOCYTES PERCENT AUTO 10 % (4-13); Mean Corpuscular HGB 29.3 pg (26.0-34.0); Mean Corpuscular HGB Conc 32.2 g/dL (31.5-36.5); Mean Corpuscular Volume 91 fL (80-100); Mean Platelet Volume 9.2 fL (9.1-12.4); NEUTROPHILS ABSOLUTE AUTO 8.46 K/mm3 (1.96-9.15); NEUTROPHILS PERCENT AUTO 76 % (41-73); Platelet Count 384 K/mm3 (150-400); RDW Coefficient Variation 16.1 % (11.7-14.2); RDW Standard Deviation 52.9 fL (35.1-46.3); Red Blood Cell Count 2.87 M/mm3 (3.80-5.20)
--- NOTE | 2020-03-12 05:45 | NUR ---
SHIFT SUMMARY: 79 Y/O FEMALE RESTED COMFORTABLY ALL SHIFT; DENIES NEED FOR PAIN MEDS; RIGHT FOOT DRESSING DRY AND INTACT; PTS HEART RATE INCREASED TWICE THIS SHIFT 150-160 BRIEFLY WHILE UTILIZING BSC (DR PAREKH NOTIFIED) AND DECREASED BACK TO 110-120 PER MELLY--TELEPHONE SALES AGENT; PT ABLE TO STAND, PIVOT AND TRANSFER TO BSC WITHOUT ISSUE VIA WALKER X 1 STANDBY ASSIST; PT ALERT AND ORIENTED X 4; BED LOW POSITION WITH CALL LIGHT AT SIDE.
[2020-03-12 05:54] LABS: Alanine Aminotransfer (ALT/SGP 130 U/L (12-78); Albumin, Blood 1.9 g/dL (3.4-5.0); Albumin/Globulin Ratio 0.4 (0.8-1.8); Alk Phos 79 U/L (50-136); Anion Gap 5 mmol/L (6-16); Aspartate Aminotrans (AST/SGOT 83 U/L (12-37); Bilirubin, Total 0.5 mg/dL (0.1-1.0); Blood Urea Nitrogen 21 mg/dL (8-24); Bun/Creatinine Ratio 24.9 (12.0-20.0); CO2, Blood 25 mmol/L (21-32); Calcium, Blood 8.4 mg/dL (8.5-10.1); Chloride, Blood 105 mmol/L (98-108); Creatinine, Blood 0.84 mg/dL (0.40-1.00); Globulin, Blood 4.6 g/dL (2.2-4.0); Glomerular Filtration Rate >60 (60-); Glucose, Blood 89 mg/dL (70-99); Potassium, Blood 4.1 mmol/L (3.5-5.5); Sodium, Blood 135 mmol/L (136-145); Total Protein, Blood 6.5 g/dL (6.4-8.2)
--- NOTE | 2020-03-12 10:15 | NUR ---
730 PT INCREASED H/R ON BSC. TO 150-170. CALL[address] DR BLACKBURN. ISSUE NORMAL MEDS. NO NEW ORDERS.
--- NOTE | 2020-03-12 10:16 | NUR ---
0915 H/R RECHECKED, DOWN TO 1TEENS.
--- NOTE | 2020-03-12 13:00 | NUR ---
CHECKED FOR HAMETOMA AT GROIN SITE. LIGHT TENDERNESS FELT BY PT. NO HARDNESS, NO BRUISING NOTED.
--- NOTE | 2020-03-12 13:40 | NUR ---
DR BLACKBURN CALLED. [facility] HAS TALKED TO DR LUEVANO, DR SORTO, AND DR HERNANDEZ. ALL AGREE THAT EVEN WITH SLOWLY DROPPING H/H IS OKAY D/C. [facility] IS BASICALLY STABLE AND WILL HAVE NEW H/H DRAWN SUNDAY AT DR LUEVANO OFC. D/C TO D/C TODAY
[2020-03-12] MEDS ORDERED: METO50ER PO (16:06)
[2020-03-12] MEDS ORDERED: SULTRIDS PO (16:07)
[2020-03-12] MEDS ORDERED: XARELTO15 MG PO (16:07)
[2020-03-12] MEDS ORDERED: HYDR1TAB94 PO (16:07)
--- NOTE | 2020-03-12 16:59 | NUR ---
PT PLEASANT TODAY. MEDICATED ONCE FOR PAIN. DAUGHTER TO FIELD ASSOCIATE FOR DISCHARGE SHORTLY. NO OTHER CONCERNS . BED IN LOW POSITIONS. CALL LITE IN REACH, CALLS APPROP
--- NOTE | 2020-03-12 17:50 | NUR ---
PT DISCHARGE REVIEWD WITH PT SHE VERBALIZED UNDERSTANDING MEDS AND INST. ALSO VERBALIZED TO CALL DRS ON SUNDAY FOR APPOIMTNENTS. IV X2 REMOVED INTACT. TELE REMOVED AND RETUREND. PT WHEELED TO DOOR BY [employer] AT [id number]
== END 2020-03-12 17:44 | disposition home health service (06) | DRG 856 ==
LOC: ER 14:47 → MEDS 20:25 → PCU 20:25 → MEDS 20:45 → PCU 03-09 22:31 → MEDS 03-11 16:31 → ENPENDDIS 03-12 13:39 → MEDS 03-12 17:44
PROVIDERS: Internal Medicine; Internal Medicine Cardiovascular Disease; Internal Medicine Endocrinology, Diabetes & Metabolism; Pharmacist; Physician Assistant; Podiatrist Foot & Ankle Surgery; Radiology Diagnostic Radiology; ADMIT Family Medicine
PROC: 04CP3ZZ Extirpation of Matter from Right Anterior Tibial Artery, Percutaneous Approach (ICD-10-PCS; principal; 2020-03-09)
PROC: 047P3ZZ Dilation of Right Anterior Tibial Artery, Percutaneous Approach (ICD-10-PCS; 2020-03-09)
PROC: 047M3ZZ Dilation of Right Popliteal Artery, Percutaneous Approach (ICD-10-PCS; 2020-03-09)
PROC: 047T3ZZ Dilation of Right Peroneal Artery, Percutaneous Approach (ICD-10-PCS; 2020-03-09)
PROC: 04CP3ZZ Extirpation of Matter from Right Anterior Tibial Artery, Percutaneous Approach (ICD-10-PCS; 2020-03-09)
PROC: 04CT3ZZ Extirpation of Matter from Right Peroneal Artery, Percutaneous Approach (ICD-10-PCS; 2020-03-09)
PROC: 047R34Z Dilation of Right Posterior Tibial Artery with Drug-eluting Intraluminal Device, Percutaneous Approach (ICD-10-PCS; 2020-03-09)
DX: T81.49XA Infection following a procedure, other surgical site, initial encounter (principal); G93.41 Metabolic encephalopathy; I50.33 Acute on chronic diastolic (congestive) heart failure; L03.115 Cellulitis of right lower limb; D62 Acute posthemorrhagic anemia; I73.9 Peripheral vascular disease, unspecified; Z86.73 Personal history of transient ischemic attack (TIA), and cerebral infarction without residual deficits; I25.10 Atherosclerotic heart disease of native coronary artery without angina pectoris; D72.9 Disorder of white blood cells, unspecified; E06.3 Autoimmune thyroiditis; I25.2 Old myocardial infarction; Z95.5 Presence of coronary angioplasty implant and graft; G47.33 Obstructive sleep apnea (adult) (pediatric); E87.5 Hyperkalemia; I11.0 Hypertensive heart disease with heart failure; Z66 Do not resuscitate; S30.1XXA Contusion of abdominal wall, initial encounter; Y92.9 Unspecified place or not applicable; A49.02 Methicillin resistant Staphylococcus aureus infection, unspecified site
CPT/HCPCS: 36415; 36600; 37224; 37231; 37232; 70450; 71045; 73620; 74176; 75710; 75774; 76937; 80048; 80053; 80202; 82803; 82947; 84443; 84450; 84460; 84484; 85025; 85610; 85730; 93005; 93010; 93308; 93321; 93880; 96365; 96366; 96375; 97110; 97162; 97166; 97530; 97535; 99152; 99153; 99284-25; A9270; A9270-GY; C1725; C1751; C1769; C1874; C1885; C1887; C1894; J0360; J0690; J1170; J1644; J1885; J2250; J2543; J2997; J3010; J3370; J7030; J7050; Q9967; U0002

== ENCOUNTER 2020-03-29 00:07 | Day surgery (SDC) | payer OTHER ==
[~2020-03-29 00:07] MED LIST changes: +METO50ER PO; +SULTRIDS PO; +XARELTO15 MG PO
== END 2020-03-29 22:46 | disposition home or self-care (01) ==
LOC: WOUND 00:07
DX: L97.519 Non-pressure chronic ulcer of other part of right foot with unspecified severity (principal); L89.93 Pressure ulcer of unspecified site, stage 3; L89.622 Pressure ulcer of left heel, stage 2; I10 Essential (primary) hypertension; E03.9 Hypothyroidism, unspecified; Z79.02 Long term (current) use of antithrombotics/antiplatelets; Z79.899 Other long term (current) drug therapy; Z79.01 Long term (current) use of anticoagulants

== ENCOUNTER 2020-04-05 00:26 | Day surgery (SDC) | payer OTHER | END 2020-04-05 22:48 | disposition home or self-care (01) | LOC: WOUND 00:26 | DX: L97.519 Non-pressure chronic ulcer of other part of right foot with unspecified severity (principal); L89.93 Pressure ulcer of unspecified site, stage 3; L89.622 Pressure ulcer of left heel, stage 2; I10 Essential (primary) hypertension; E03.9 Hypothyroidism, unspecified; Z79.02 Long term (current) use of antithrombotics/antiplatelets; Z79.899 Other long term (current) drug therapy; Z79.01 Long term (current) use of anticoagulants ==

== ENCOUNTER 2020-04-26 00:50 | Day surgery (SDC) | payer OTHER | END 2020-04-26 22:56 | disposition home or self-care (01) | LOC: WOUND 00:50 | DX: L97.519 Non-pressure chronic ulcer of other part of right foot with unspecified severity (principal); L89.93 Pressure ulcer of unspecified site, stage 3; L89.622 Pressure ulcer of left heel, stage 2 ==

== ENCOUNTER 2020-05-10 00:23 | Day surgery (SDC) | payer OTHER | END 2020-05-10 22:53 | disposition home or self-care (01) | LOC: WOUND 00:23 | DX: L89.93 Pressure ulcer of unspecified site, stage 3 (principal); L89.622 Pressure ulcer of left heel, stage 2; L97.519 Non-pressure chronic ulcer of other part of right foot with unspecified severity; I10 Essential (primary) hypertension; E03.9 Hypothyroidism, unspecified; M19.90 Unspecified osteoarthritis, unspecified site; I73.9 Peripheral vascular disease, unspecified ==

== ENCOUNTER 2020-05-14 00:37 | Day surgery (SDC) | payer OTHER ==
[2020-05-14] MEDS ORDERED: METO50ER PO (09:02)
== END 2020-05-14 09:46 | disposition home or self-care (01) ==
LOC: ATC 00:37
DX: L03.115 Cellulitis of right lower limb (principal); L97.519 Non-pressure chronic ulcer of other part of right foot with unspecified severity; L89.93 Pressure ulcer of unspecified site, stage 3; L89.622 Pressure ulcer of left heel, stage 2; I10 Essential (primary) hypertension; E03.9 Hypothyroidism, unspecified
CPT/HCPCS: 96365; J3370

== ENCOUNTER 2020-05-15 00:17 | Day surgery (SDC) | payer OTHER ==
[2020-05-16] MEDS ORDERED: VANCOMYCIN HCL1 G1 IV (15:23)
== END 2020-05-15 09:16 | disposition home or self-care (01) ==
LOC: ATC 00:17
DX: L03.115 Cellulitis of right lower limb (principal); L97.519 Non-pressure chronic ulcer of other part of right foot with unspecified severity; I10 Essential (primary) hypertension; E03.9 Hypothyroidism, unspecified; L89.93 Pressure ulcer of unspecified site, stage 3; L89.622 Pressure ulcer of left heel, stage 2; Z79.02 Long term (current) use of antithrombotics/antiplatelets; Z79.899 Other long term (current) drug therapy; Z79.01 Long term (current) use of anticoagulants
CPT/HCPCS: 96365; J3370

== ENCOUNTER 2020-05-16 | Day surgery (SDC) | payer OTHER ==
[2020-05-16] MEDS ORDERED: VANCOMYCIN HCL1 G1 IV (15:23)
[2020-05-16 15:39] LABS: Creatinine, Blood 0.93 mg/dL (0.40-1.00); Vancomycin, Trough 5.9 ug/mL (5.0-10.0)
--- NOTE | 2020-05-16 16:29 | NUR ---
MANUAL START TIME NOTED @ 1610.
--- NOTE | 2020-05-16 17:18 | NUR ---
ROUNDING DONE. IV WNL. PT SITTING UP IN CHAIR WATCHING TV, CALL LIGHT WITHIN REACH.
== END 2020-05-16 18:16 | disposition home or self-care (01) ==
LOC: ATC
PROVIDERS: Nurse Practitioner Family
DX: L03.115 Cellulitis of right lower limb (principal); L89.93 Pressure ulcer of unspecified site, stage 3; L89.622 Pressure ulcer of left heel, stage 2; L97.519 Non-pressure chronic ulcer of other part of right foot with unspecified severity; I10 Essential (primary) hypertension; E03.9 Hypothyroidism, unspecified; I73.9 Peripheral vascular disease, unspecified; M19.90 Unspecified osteoarthritis, unspecified site
CPT/HCPCS: 80202; 82565; 96365; 96366; J3370; J7050

== ENCOUNTER 2020-05-18 00:28 | Day surgery (SDC) | payer OTHER ==
[~2020-05-18 00:28] MED LIST changes: +VANCOMYCIN HCL1 G1 IV
== END 2020-05-18 09:10 | disposition home or self-care (01) ==
LOC: ATC 00:28
DX: L03.115 Cellulitis of right lower limb (principal); L97.519 Non-pressure chronic ulcer of other part of right foot with unspecified severity; I10 Essential (primary) hypertension; E03.9 Hypothyroidism, unspecified; L89.622 Pressure ulcer of left heel, stage 2; L89.93 Pressure ulcer of unspecified site, stage 3; Z79.02 Long term (current) use of antithrombotics/antiplatelets; Z79.899 Other long term (current) drug therapy
CPT/HCPCS: 96365; J3370

== ENCOUNTER 2020-05-20 00:06 | Day surgery (SDC) | payer OTHER | END 2020-05-20 09:23 | disposition home or self-care (01) | LOC: ATC 00:06 | DX: L03.115 Cellulitis of right lower limb (principal); L97.519 Non-pressure chronic ulcer of other part of right foot with unspecified severity; L89.93 Pressure ulcer of unspecified site, stage 3; L89.622 Pressure ulcer of left heel, stage 2; I10 Essential (primary) hypertension; E03.9 Hypothyroidism, unspecified; Z79.02 Long term (current) use of antithrombotics/antiplatelets; Z79.01 Long term (current) use of anticoagulants; Z79.899 Other long term (current) drug therapy | CPT/HCPCS: 96365; J3370 ==

== ENCOUNTER 2020-05-24 00:11 | Day surgery (SDC) | payer OTHER | END 2020-05-24 16:05 | disposition home or self-care (01) | LOC: ATC 00:11 | DX: L03.115 Cellulitis of right lower limb (principal); L97.519 Non-pressure chronic ulcer of other part of right foot with unspecified severity; L89.93 Pressure ulcer of unspecified site, stage 3; L89.622 Pressure ulcer of left heel, stage 2; I10 Essential (primary) hypertension; E03.9 Hypothyroidism, unspecified; M19.90 Unspecified osteoarthritis, unspecified site; I73.9 Peripheral vascular disease, unspecified | CPT/HCPCS: 96365; J3370 ==

== ENCOUNTER 2020-05-25 00:04 | Day surgery (SDC) | payer OTHER ==
--- NOTE | 2020-05-25 08:14 | NUR ---
LAB DRAWN FROM [facility]
[2020-05-25 09:11] LABS: Creatinine, Blood 0.88 mg/dL (0.40-1.00)
== END 2020-05-25 10:39 | disposition home or self-care (01) ==
LOC: ATC 00:04
PROVIDERS: Nurse Practitioner Family
DX: L03.115 Cellulitis of right lower limb (principal); L97.519 Non-pressure chronic ulcer of other part of right foot with unspecified severity; L89.93 Pressure ulcer of unspecified site, stage 3; L89.622 Pressure ulcer of left heel, stage 2; I10 Essential (primary) hypertension; E03.9 Hypothyroidism, unspecified; Z79.02 Long term (current) use of antithrombotics/antiplatelets; Z79.899 Other long term (current) drug therapy
CPT/HCPCS: 80202; 82565; 96365; J3370

== ENCOUNTER 2020-05-28 00:18 | Day surgery (SDC) | payer OTHER | END 2020-05-28 22:54 | disposition home or self-care (01) | LOC: WOUND 00:18 | DX: L97.519 Non-pressure chronic ulcer of other part of right foot with unspecified severity (principal); L03.115 Cellulitis of right lower limb; L89.93 Pressure ulcer of unspecified site, stage 3; L89.622 Pressure ulcer of left heel, stage 2 ==

== ENCOUNTER 2020-05-31 08:25 | Day surgery (SDC) | payer OTHER | END 2020-05-31 22:43 | disposition home or self-care (01) | LOC: WOUND 08:25 | DX: L97.519 Non-pressure chronic ulcer of other part of right foot with unspecified severity (principal); L03.115 Cellulitis of right lower limb; L89.93 Pressure ulcer of unspecified site, stage 3; L89.622 Pressure ulcer of left heel, stage 2 ==

== ENCOUNTER 2020-06-04 00:10 | Day surgery (SDC) | payer OTHER | END 2020-06-04 22:44 | disposition home or self-care (01) | LOC: WOUND 00:10 | DX: L97.519 Non-pressure chronic ulcer of other part of right foot with unspecified severity (principal); L03.115 Cellulitis of right lower limb; L89.93 Pressure ulcer of unspecified site, stage 3; L89.622 Pressure ulcer of left heel, stage 2 ==

== ENCOUNTER 2020-06-10 00:17 | Day surgery (SDC) | payer OTHER ==
[2020-06-23] MEDS ORDERED: Prinivil10 MG PO (10:25)
== END 2020-06-10 22:38 | disposition home or self-care (01) ==
LOC: WOUND 00:17
DX: L89.894 Pressure ulcer of other site, stage 4 (principal); L89.893 Pressure ulcer of other site, stage 3; L89.892 Pressure ulcer of other site, stage 2; L03.115 Cellulitis of right lower limb

== ENCOUNTER 2020-06-17 00:29 | Day surgery (SDC) | payer OTHER ==
[2020-06-23] MEDS ORDERED: Prinivil10 MG PO (10:25)
== END 2020-06-17 22:45 | disposition home or self-care (01) ==
LOC: WOUND 00:29
DX: L97.519 Non-pressure chronic ulcer of other part of right foot with unspecified severity (principal); L03.115 Cellulitis of right lower limb; L89.93 Pressure ulcer of unspecified site, stage 3; L89.622 Pressure ulcer of left heel, stage 2

== ENCOUNTER 2020-06-29 00:18 | Day surgery (SDC) | payer OTHER | END 2020-06-29 22:41 | disposition home or self-care (01) | LOC: WOUND 00:18 | DX: L97.519 Non-pressure chronic ulcer of other part of right foot with unspecified severity (principal); L03.115 Cellulitis of right lower limb; L89.93 Pressure ulcer of unspecified site, stage 3; L89.622 Pressure ulcer of left heel, stage 2 ==

== ENCOUNTER 2020-07-01 00:08 | Day surgery (SDC) | payer OTHER | END 2020-07-01 22:42 | disposition home or self-care (01) | LOC: WOUND 00:08 | DX: L97.519 Non-pressure chronic ulcer of other part of right foot with unspecified severity (principal); L03.115 Cellulitis of right lower limb; L89.93 Pressure ulcer of unspecified site, stage 3; L89.622 Pressure ulcer of left heel, stage 2 ==

== ENCOUNTER 2020-07-06 05:23 | Day surgery (SDC) | payer OTHER | END 2020-07-06 23:03 | disposition home or self-care (01) | LOC: WOUND 05:23 | DX: L97.519 Non-pressure chronic ulcer of other part of right foot with unspecified severity (principal) ==

== ENCOUNTER 2020-07-08 00:49 | Day surgery (SDC) | payer OTHER | END 2020-07-08 22:54 | disposition home or self-care (01) | LOC: WOUND 00:49 | DX: L97.519 Non-pressure chronic ulcer of other part of right foot with unspecified severity (principal); L03.115 Cellulitis of right lower limb; L89.93 Pressure ulcer of unspecified site, stage 3; L89.622 Pressure ulcer of left heel, stage 2 ==

== ENCOUNTER 2020-07-14 00:47 | Day surgery (SDC) | payer OTHER | END 2020-07-14 12:00 | disposition home or self-care (01) | LOC: WOUND 00:47 | DX: T87.43 Infection of amputation stump, right lower extremity (principal); B99.9 Unspecified infectious disease; T87.53 Necrosis of amputation stump, right lower extremity; I96 Gangrene, not elsewhere classified; L89.894 Pressure ulcer of other site, stage 4; L97.812 Non-pressure chronic ulcer of other part of right lower leg with fat layer exposed; L97.822 Non-pressure chronic ulcer of other part of left lower leg with fat layer exposed; I11.0 Hypertensive heart disease with heart failure; I50.32 Chronic diastolic (congestive) heart failure; I25.2 Old myocardial infarction; I48.0 Paroxysmal atrial fibrillation; K21.9 Gastro-esophageal reflux disease without esophagitis; I25.10 Atherosclerotic heart disease of native coronary artery without angina pectoris; E78.5 Hyperlipidemia, unspecified; G47.33 Obstructive sleep apnea (adult) (pediatric); E66.9 Obesity, unspecified; Z68.30 Body mass index [BMI] 30.0-30.9, adult; Z79.02 Long term (current) use of antithrombotics/antiplatelets; Z79.01 Long term (current) use of anticoagulants; Z79.899 Other long term (current) drug therapy; Z95.5 Presence of coronary angioplasty implant and graft; Z90.710 Acquired absence of both cervix and uterus; Z66 Do not resuscitate; Y83.5 Amputation of limb(s) as the cause of abnormal reaction of the patient, or of later complication, without mention of misadventure at the time of the procedure ==

== ENCOUNTER 2020-07-21 00:35 | Day surgery (SDC) | payer OTHER | END 2020-07-21 22:48 | disposition home or self-care (01) | LOC: WOUND 00:35 | DX: L97.512 Non-pressure chronic ulcer of other part of right foot with fat layer exposed (principal); L97.821 Non-pressure chronic ulcer of other part of left lower leg limited to breakdown of skin; I10 Essential (primary) hypertension; L03.115 Cellulitis of right lower limb; L89.93 Pressure ulcer of unspecified site, stage 3; L89.622 Pressure ulcer of left heel, stage 2; Z79.899 Other long term (current) drug therapy; E03.9 Hypothyroidism, unspecified ==

== ENCOUNTER 2020-08-06 00:46 | Day surgery (SDC) | payer OTHER | END 2020-08-06 23:13 | disposition home or self-care (01) | LOC: WOUND 00:46 | DX: L97.821 Non-pressure chronic ulcer of other part of left lower leg limited to breakdown of skin (principal); L97.519 Non-pressure chronic ulcer of other part of right foot with unspecified severity; I10 Essential (primary) hypertension; E03.9 Hypothyroidism, unspecified; Z79.899 Other long term (current) drug therapy ==

== ENCOUNTER 2020-08-13 00:17 | Day surgery (SDC) | payer OTHER | END 2020-08-13 22:54 | disposition home or self-care (01) | LOC: WOUND 00:17 | DX: T87.43 Infection of amputation stump, right lower extremity (principal); I96 Gangrene, not elsewhere classified; L89.894 Pressure ulcer of other site, stage 4; L97.511 Non-pressure chronic ulcer of other part of right foot limited to breakdown of skin; L97.811 Non-pressure chronic ulcer of other part of right lower leg limited to breakdown of skin; I10 Essential (primary) hypertension; M19.90 Unspecified osteoarthritis, unspecified site; E03.9 Hypothyroidism, unspecified; Z79.02 Long term (current) use of antithrombotics/antiplatelets; Z79.01 Long term (current) use of anticoagulants; Z79.899 Other long term (current) drug therapy; Y83.5 Amputation of limb(s) as the cause of abnormal reaction of the patient, or of later complication, without mention of misadventure at the time of the procedure ==

== ENCOUNTER 2020-08-20 00:44 | Day surgery (SDC) | payer OTHER | END 2020-08-20 23:59 | disposition home or self-care (01) | LOC: WOUND 00:44 | DX: I96 Gangrene, not elsewhere classified (principal); L97.512 Non-pressure chronic ulcer of other part of right foot with fat layer exposed; L89.894 Pressure ulcer of other site, stage 4; L97.811 Non-pressure chronic ulcer of other part of right lower leg limited to breakdown of skin; S90.424D Blister (nonthermal), right lesser toe(s), subsequent encounter; I10 Essential (primary) hypertension; E03.9 Hypothyroidism, unspecified; M19.90 Unspecified osteoarthritis, unspecified site; Z79.02 Long term (current) use of antithrombotics/antiplatelets; Z79.01 Long term (current) use of anticoagulants; Z79.899 Other long term (current) drug therapy; X58.XXXD Exposure to other specified factors, subsequent encounter | CPT/HCPCS: G0463 ==

== ENCOUNTER 2020-08-25 02:57 | Day surgery (SDC) | payer OTHER | END 2020-08-25 23:32 | disposition home or self-care (01) | LOC: WOUND 02:57 | DX: L89.894 Pressure ulcer of other site, stage 4 (principal); L97.512 Non-pressure chronic ulcer of other part of right foot with fat layer exposed; L97.821 Non-pressure chronic ulcer of other part of left lower leg limited to breakdown of skin; S90.821A Blister (nonthermal), right foot, initial encounter; T87.43 Infection of amputation stump, right lower extremity; Z79.02 Long term (current) use of antithrombotics/antiplatelets; Z79.01 Long term (current) use of anticoagulants; Z79.899 Other long term (current) drug therapy; X58.XXXA Exposure to other specified factors, initial encounter; Y83.5 Amputation of limb(s) as the cause of abnormal reaction of the patient, or of later complication, without mention of misadventure at the time of the procedure | CPT/HCPCS: G0463 ==

== ENCOUNTER 2020-09-02 00:09 | Day surgery (SDC) | payer OTHER | END 2020-09-02 23:27 | disposition home or self-care (01) | LOC: WOUND 00:09 | DX: L89.892 Pressure ulcer of other site, stage 2 (principal); S90.821A Blister (nonthermal), right foot, initial encounter; L97.821 Non-pressure chronic ulcer of other part of left lower leg limited to breakdown of skin; L97.519 Non-pressure chronic ulcer of other part of right foot with unspecified severity; I70.203 Unspecified atherosclerosis of native arteries of extremities, bilateral legs; I10 Essential (primary) hypertension; E03.9 Hypothyroidism, unspecified; Z79.02 Long term (current) use of antithrombotics/antiplatelets; Z79.899 Other long term (current) drug therapy; Z79.01 Long term (current) use of anticoagulants | CPT/HCPCS: G0463 ==

== ENCOUNTER 2020-09-09 00:13 | Day surgery (SDC) | payer OTHER | END 2020-09-09 23:15 | disposition home or self-care (01) | LOC: WOUND 00:13 | DX: L97.519 Non-pressure chronic ulcer of other part of right foot with unspecified severity (principal); L97.821 Non-pressure chronic ulcer of other part of left lower leg limited to breakdown of skin; S90.821D Blister (nonthermal), right foot, subsequent encounter; L89.892 Pressure ulcer of other site, stage 2; I70.203 Unspecified atherosclerosis of native arteries of extremities, bilateral legs; L03.115 Cellulitis of right lower limb; I10 Essential (primary) hypertension; E03.9 Hypothyroidism, unspecified; Z79.899 Other long term (current) drug therapy | CPT/HCPCS: G0463 ==

== ENCOUNTER 2020-09-15 00:21 | Day surgery (SDC) | payer OTHER | END 2020-09-15 22:59 | disposition home or self-care (01) | LOC: WOUND 00:21 | DX: I96 Gangrene, not elsewhere classified (principal); L89.894 Pressure ulcer of other site, stage 4; L89.622 Pressure ulcer of left heel, stage 2; L03.115 Cellulitis of right lower limb; L97.512 Non-pressure chronic ulcer of other part of right foot with fat layer exposed; L97.829 Non-pressure chronic ulcer of other part of left lower leg with unspecified severity; L97.819 Non-pressure chronic ulcer of other part of right lower leg with unspecified severity; I70.203 Unspecified atherosclerosis of native arteries of extremities, bilateral legs; I10 Essential (primary) hypertension; M19.90 Unspecified osteoarthritis, unspecified site; E03.9 Hypothyroidism, unspecified; Z79.01 Long term (current) use of anticoagulants; Z79.02 Long term (current) use of antithrombotics/antiplatelets; Z79.899 Other long term (current) drug therapy; Z89.421 Acquired absence of other right toe(s) | CPT/HCPCS: G0463 ==

== ENCOUNTER 2020-09-17 00:46 | Day surgery (SDC) | payer OTHER | END 2020-09-17 23:35 | disposition home or self-care (01) | LOC: WOUND 00:46 | DX: I96 Gangrene, not elsewhere classified (principal); L89.894 Pressure ulcer of other site, stage 4; L89.622 Pressure ulcer of left heel, stage 2; L03.031 Cellulitis of right toe; L97.512 Non-pressure chronic ulcer of other part of right foot with fat layer exposed; L97.822 Non-pressure chronic ulcer of other part of left lower leg with fat layer exposed; L97.812 Non-pressure chronic ulcer of other part of right lower leg with fat layer exposed; I87.2 Venous insufficiency (chronic) (peripheral); Z79.01 Long term (current) use of anticoagulants; Z79.02 Long term (current) use of antithrombotics/antiplatelets; Z79.899 Other long term (current) drug therapy | CPT/HCPCS: G0463 ==

== ENCOUNTER 2020-09-20 00:31 | Day surgery (SDC) | payer OTHER | END 2020-09-20 23:46 | disposition home or self-care (01) | LOC: WOUND 00:31 | DX: I96 Gangrene, not elsewhere classified (principal); L89.894 Pressure ulcer of other site, stage 4; L89.622 Pressure ulcer of left heel, stage 2; L03.031 Cellulitis of right toe; L97.512 Non-pressure chronic ulcer of other part of right foot with fat layer exposed; L97.822 Non-pressure chronic ulcer of other part of left lower leg with fat layer exposed; L97.812 Non-pressure chronic ulcer of other part of right lower leg with fat layer exposed; L97.419 Non-pressure chronic ulcer of right heel and midfoot with unspecified severity; Z79.02 Long term (current) use of antithrombotics/antiplatelets; Z79.899 Other long term (current) drug therapy | CPT/HCPCS: G0463 ==

== ENCOUNTER 2020-09-22 06:40 | Day surgery (SDC) | payer OTHER | END 2020-09-22 22:48 | disposition home or self-care (01) | LOC: WOUND 06:40 | DX: I96 Gangrene, not elsewhere classified (principal); L89.894 Pressure ulcer of other site, stage 4; L89.622 Pressure ulcer of left heel, stage 2; L97.512 Non-pressure chronic ulcer of other part of right foot with fat layer exposed; L97.419 Non-pressure chronic ulcer of right heel and midfoot with unspecified severity; L03.031 Cellulitis of right toe; L03.115 Cellulitis of right lower limb; S90.424A Blister (nonthermal), right lesser toe(s), initial encounter; I10 Essential (primary) hypertension; M19.90 Unspecified osteoarthritis, unspecified site; E03.9 Hypothyroidism, unspecified; Z79.02 Long term (current) use of antithrombotics/antiplatelets; Z79.01 Long term (current) use of anticoagulants; Z79.899 Other long term (current) drug therapy ==

== ENCOUNTER 2020-09-29 01:15 | Day surgery (SDC) | payer OTHER | END 2020-09-29 23:13 | disposition home or self-care (01) | LOC: WOUND 01:15 | DX: I96 Gangrene, not elsewhere classified (principal); L89.894 Pressure ulcer of other site, stage 4; L89.622 Pressure ulcer of left heel, stage 2; L97.512 Non-pressure chronic ulcer of other part of right foot with fat layer exposed; L97.419 Non-pressure chronic ulcer of right heel and midfoot with unspecified severity; S81.809D Unspecified open wound, unspecified lower leg, subsequent encounter; L03.031 Cellulitis of right toe; I10 Essential (primary) hypertension; M19.90 Unspecified osteoarthritis, unspecified site; E03.9 Hypothyroidism, unspecified; Z79.02 Long term (current) use of antithrombotics/antiplatelets; Z79.899 Other long term (current) drug therapy; Z79.01 Long term (current) use of anticoagulants; X58.XXXD Exposure to other specified factors, subsequent encounter | CPT/HCPCS: G0463 ==

== ENCOUNTER 2020-10-04 12:47 | Emergency (ER) | payer OTHER ==
[~2020-10-04] VITALS: Ht 160 cm; Wt 81.7 kg
[2020-10-04 14:01] LABS: BASOPHILS ABSOLUTE AUTO 0.05 K/mm3 (0.00-0.23); BASOPHILS PERCENT AUTO 0 % (0-2); EOSINOPHILS PERCENT AUTO 1 % (0-6); Hematocrit 42.8 % (33.0-51.0); Hemoglobin 13.8 g/dL (11.5-16.0); IMMATURE GRAN ABSOLUTE AUTO 0.04 K/mm3 (0.00-0.10); IMMATURE GRAN PERCENT AUTO 0 % (0-1); LYMPHOCYTES ABSOLUTE AUTO 1.12 K/mm3 (0.84-5.20); LYMPHOCYTES PERCENT AUTO 8 % (21-46); MONOCYTES PERCENT AUTO 9 % (4-13); Mean Corpuscular HGB 29.5 pg (26.0-34.0); Mean Corpuscular HGB Conc 32.2 g/dL (31.5-36.5); Mean Corpuscular Volume 92 fL (80-100); Mean Platelet Volume 9.4 fL (9.1-12.4); NEUTROPHILS ABSOLUTE AUTO 11.19 K/mm3 (1.96-9.15); NEUTROPHILS PERCENT AUTO 81 % (41-73); Platelet Count 323 K/mm3 (150-400); RDW Coefficient Variation 15.6 % (11.7-14.2); RDW Standard Deviation 52.6 fL (35.1-46.3); Red Blood Cell Count 4.68 M/mm3 (3.80-5.20)
[2020-10-04 14:13] LABS: Albumin, Blood 2.8 g/dL (3.4-5.0); Albumin/Globulin Ratio 0.5 (0.8-1.8); Bilirubin, Total 0.5 mg/dL (0.1-1.0); Bun/Creatinine Ratio 21.3 (12.0-20.0); Calcium, Blood 9.3 mg/dL (8.5-10.1); Creatinine, Blood 1.08 mg/dL (0.40-1.00); Globulin, Blood 5.5 g/dL (2.2-4.0); Total Protein, Blood 8.3 g/dL (6.4-8.2)
[2020-10-04] MEDS ORDERED: Cleocin HCl300 MG PO (15:24)
[2020-10-04] MEDS ORDERED: Norco 10-325 T1 EACH PO (15:24)
== END 2020-10-04 15:55 | disposition home or self-care (01) ==
LOC: ER 12:47
PROVIDERS: Physician Assistant
DX: L97.519 Non-pressure chronic ulcer of other part of right foot with unspecified severity (principal); L97.529 Non-pressure chronic ulcer of other part of left foot with unspecified severity; I10 Essential (primary) hypertension; Z79.02 Long term (current) use of antithrombotics/antiplatelets; Z79.01 Long term (current) use of anticoagulants; Z79.899 Other long term (current) drug therapy
CPT/HCPCS: 36415; 80053; 83605; 85025; 96365; 96375; 99284-25; A9270; J2405; J2543; J3010; J3370; J7030

== ENCOUNTER 2020-10-08 21:23 | Inpatient (IN) | payer OTHER ==
[~2020-10-08] VITALS: Ht 165.1 cm; Wt 79.4 kg
[~2020-10-08 21:23] MED LIST changes: +Cleocin HCl300 MG PO; +Norco 10-325 T1 EACH PO
[2020-10-08 22:02] LABS: BASOPHILS ABSOLUTE AUTO 0.05 K/mm3 (0.00-0.23); BASOPHILS PERCENT AUTO 0 % (0-2); EOSINOPHILS ABSOLUTE AUTO 0.09 K/mm3 (0.00-0.68); EOSINOPHILS PERCENT AUTO 1 % (0-6); Hemoglobin 12.3 g/dL (11.5-16.0); IMMATURE GRAN ABSOLUTE AUTO 0.08 K/mm3 (0.00-0.10); IMMATURE GRAN PERCENT AUTO 1 % (0-1); LYMPHOCYTES ABSOLUTE AUTO 0.85 K/mm3 (0.84-5.20); LYMPHOCYTES PERCENT AUTO 5 % (21-46); MONOCYTES PERCENT AUTO 9 % (4-13); Mean Corpuscular HGB 29.2 pg (26.0-34.0); Mean Corpuscular HGB Conc 32.4 g/dL (31.5-36.5); Mean Corpuscular Volume 90 fL (80-100); Mean Platelet Volume 9.3 fL (9.1-12.4); NEUTROPHILS ABSOLUTE AUTO 15.02 K/mm3 (1.96-9.15); NEUTROPHILS PERCENT AUTO 85 % (41-73); Platelet Count 425 K/mm3 (150-400); RDW Coefficient Variation 15.4 % (11.7-14.2); Red Blood Cell Count 4.21 M/mm3 (3.80-5.20); White Blood Cell Count 17.69 K/mm3 (4.00-11.30)
[2020-10-08 22:16] LABS: International Normalized Ratio 1.53
[2020-10-08 23:06] LABS: Albumin, Blood 2.3 g/dL (3.4-5.0); Albumin/Globulin Ratio 0.4 (0.8-1.8); Bilirubin, Total 0.6 mg/dL (0.1-1.0); Bun/Creatinine Ratio 24.4 (12.0-20.0); Calcium, Blood 8.7 mg/dL (8.5-10.1); Creatinine, Blood 2.05 mg/dL (0.40-1.00); Globulin, Blood 5.2 g/dL (2.2-4.0); Potassium, Blood 5.4 mmol/L (3.5-5.5); Total Protein, Blood 7.5 g/dL (6.4-8.2)
[2020-10-09 03:29] LABS: Source, Urine Clean Catch
[2020-10-09 03:31] LABS: Appearance, Urine Turbid (Clear); Bilirubin, Urine Neg (Neg); Blood, Urine 3+ (Neg); Color, Urine Yellow (P-Yellow); Glucose Qualitative, Urine Neg (Neg); Ketones, Urine Neg (Neg); Leukocyte Esterase, Urine 3+ (Neg); Nitrite, Urine Pos (Neg); Protein, Urine 3+ (Neg); Specific Gravity, Urine 1.025 (1.003-1.022); Urobilinogen, Urine NORM (Normal)
[2020-10-09 03:39] LABS: Bacteria Many /hpf; Red Blood Cells, Urine 0-2 /hpf (0-2); Squamous Epithelial Cells Few /hpf (Few); White Blood Cells, Urine TNTC /hpf (0-5)
[2020-10-09 03:42] LABS: U Amphetamine Screen Not Detected; U Barbituate Screen Not Detected; U Benzodiazapine Screen Not Detected; U Buprenorphine Screen Not Detected; U Cannabinoids Screen Not Detected; U Cocaine Screen Not Detected; U Methadone Screen Not Detected; U Methamphetamine Screen Not Detected; U Opiates Screen DETECTED; U Oxycodone Screen Not Detected; U Phencyclidine Screen Not Detected; U Propoxyphene Screen Not Detected
--- NOTE | 2020-10-09 04:59 | NUR ---
SHIFT SUMMARY ADMITTED FOR ACUTE ON CKD. ALSO HAS CELLULITIS OF BLE. FULL CODE. URINE SAMPLE COLLECTED AND BEING CULTURED. SHE IS SEEN AT [facility]WEEK FOR CHRONIC INFECTION TO BLE. LEG WOUNDS WRAPPED THIS SHIFT, PICTURES IN CHART. IV ANTIBIOTICS ARE SCHEDULED.
[2020-10-09 05:25] LABS: BASOPHILS ABSOLUTE AUTO 0.04 K/mm3 (0.00-0.23); BASOPHILS PERCENT AUTO 0 % (0-2); EOSINOPHILS ABSOLUTE AUTO 0.04 K/mm3 (0.00-0.68); EOSINOPHILS PERCENT AUTO 0 % (0-6); Hematocrit 35.5 % (33.0-51.0); Hemoglobin 11.4 g/dL (11.5-16.0); IMMATURE GRAN ABSOLUTE AUTO 0.08 K/mm3 (0.00-0.10); IMMATURE GRAN PERCENT AUTO 1 % (0-1); LYMPHOCYTES PERCENT AUTO 5 % (21-46); MONOCYTES ABSOLUTE AUTO 1.64 K/mm3 (0.16-1.47); MONOCYTES PERCENT AUTO 9 % (4-13); Mean Corpuscular HGB 29.1 pg (26.0-34.0); Mean Corpuscular HGB Conc 32.1 g/dL (31.5-36.5); Mean Corpuscular Volume 91 fL (80-100); Mean Platelet Volume 9.4 fL (9.1-12.4); NEUTROPHILS ABSOLUTE AUTO 15.13 K/mm3 (1.96-9.15); NEUTROPHILS PERCENT AUTO 85 % (41-73); Platelet Count 399 K/mm3 (150-400); RDW Coefficient Variation 15.3 % (11.7-14.2); RDW Standard Deviation 50.6 fL (35.1-46.3); Red Blood Cell Count 3.92 M/mm3 (3.80-5.20); White Blood Cell Count 17.73 K/mm3 (4.00-11.30)
[2020-10-09 05:53] LABS: Albumin, Blood 2.3 g/dL (3.4-5.0); Albumin/Globulin Ratio 0.5 (0.8-1.8); Bilirubin, Total 0.6 mg/dL (0.1-1.0); Bun/Creatinine Ratio 29.4 (12.0-20.0); Calcium, Blood 8.9 mg/dL (8.5-10.1); Creatinine, Blood 1.6 mg/dL (0.40-1.00); Globulin, Blood 4.9 g/dL (2.2-4.0); Potassium, Blood 4.7 mmol/L (3.5-5.5); Total Protein, Blood 7.2 g/dL (6.4-8.2)
--- NOTE | 2020-10-09 07:35 | NUR ---
ASSUMED CARE OF PT- BEDSIDE REPORT COMPLETED WITH NIGHT PINA OBREGON. PT ADMITTED OVERNIGHT. ON MORNING ASSESSMENT PT WAS NOTED TO HAVE A RAPID IRREGULAR HR. ON VITALS HR WAS 137 RESP RATE ELEVATED TO 26 RMP. PT DENIES SOB. STARTED IVF RUNNING, GAVE MORNING METOPROLOL DOSE EARLY AND CALLED DR DIAZ FOR AN ORDER FOR TELE. ORDER RECIEVED CALLED TELE THEY ARE AWARE OF THE ORDER. WILL PLACE WHEN IT ARRIVES. PT HAS NO S&S OF DISTRESS AT THIS TIME. WILL CTM.
--- NOTE | 2020-10-09 08:59 | NUR ---
CALLED DR DIAZ- UNABLE TO PALPATE PT PEDAL PULSE ON THE RIGHT FOOT. DOPPLER LOCATED PEDAL PULSE IN THE LEFT FOOT, UNABLE TO LOCATE PEDAL PULSE IN THE RIGHT FOOT. DR HARVEY. ORDER RECIEVED FOR LOVENOX, HOWEVER PT IS ON XERALTO, CALLED DR PADRON AND LEFT A MESSAGE AWAITING A CALL BACK.
--- NOTE | 2020-10-09 09:23 | NUR ---
ATTEMPTED TO CALL DR DOS SANTOS- PT IS ON PLAVIX AND XERALTO, TRYING TO CLARIFY EARLIER ORDER FOR LOVENOX. AWAITING A CALL BACK FROM PREVIOUS MESSAGE.
--- NOTE | 2020-10-09 10:44 | NUR ---
SPOKE TO DR DOS SANTOS- NO NEED FOR LOVENOX IF THE PT IS ON XERALTO AND PLAVIX. DR AWARE PT HR IS SUSTAINING IN THE 130 RANGE. PT C/O PAIN 06/10 MEDICATED WITH FENTANYL AND TYLENOL. SPOKE TO DR ABOUT RESTARTING NORCO AT PT HOME DOSE. WILL SPEAK TO PT WHEN SHE WAKES FROM HER NAP ABOUT HER HOME DOSE OF NORCO.
--- NOTE | 2020-10-09 13:36 | NUR ---
CALLED DR DOS SANTOS- PT HAS HAD A LITTLE INCREASE IN CONFUSION THIS AFTERNOON POSSIBLY R/T FENTANYL RECIEVED EARLIER IN THE SHIFT. PT IS UNABLE TO TELL STAFF WHAT DOSE OF PAIN MEDICATION SHE HAS BEEN TAKING. SPOKE TO AND HE WILL LOOK INTO THE PT RECORDS TO DETERMINE THE DOSE. ALSO HAD SPOKEN ABOUT CT SCAN OF THE PT BLE ORDER BEING PLACED NOW.
--- NOTE | 2020-10-09 14:27 | NUR ---
PT DRESSINGS COMPLETELY SOILDE FROM SEROSANGUINOUS DRAINAGE. REDRESSED WOUNDS WITH OIL EMULSION DRESSING ON THE WOUND BED THEN ABD PAD FOR ABSORBANCE, AND WRAPPED WITH TAMIE WRAP. PLACED NON SKID DIABETIC SOCKS OVER PT FEET.
--- NOTE | 2020-10-09 19:34 | NUR ---
SHIFT SUMMARY- PT ALERT AND ORIENTED X3, FORGETFUL AND OCCASSIONALLY CONFUSED. PT MEDICATED FOR PAIN WITH IV FENTANYL WHICH SEEMED TO CAUSE INCREASED CONFUSION. PT HAD A CT BLE DONE. NO PEDAL PULSE IN THE RLE. LLE PEDAL PULSE CAN BE FOUND WITH DOPPLER WHEN THE DRESSING IS REMOVED. DRESSING CHANGED THIS AFTERNOON. PT WOUNDS ARE WEEPING COPIOUS AMOUNTS OF SEROSANGUINOUS FLUID. PT IS ON TELE AFIB AT 98-110 NOW. THIS MORNING SHE WAS SUSSTAINED AT 130'S. PT TACHS UP TO THE 130'S WHEN SHE GOES TO THE [facility] 2P MAX ASSIST WITH TRANSFER. IV SL AT THIS TIME.
--- NOTE | 2020-10-10 00:16 | NUR ---
IV LOPRESSOR PT HAD SUSTAINED AFIB W A HEART RATE IN THE MID 140'S WELL AN 8 BEAT RUN OF VTACH. AN ORDER FOR IV LOPRESSOR WAS OBTAINED AND FIRST DOSE GIVEN. PT IS NOW AFIB 110'S. PT HAS REMAINED ASYMPTOMATIC.
--- NOTE | 2020-10-10 02:33 | NUR ---
AFIB 140'S PT AGAIN HAD AFIB IN THE 140'S W A SECOND 8 BEAT RUN OF VTACH. HOSPITALIST MAN WAS CONTACTED AND A SECOND DOSE OF IV LOPRESSOR WELL AN ADDITIONAL 50MG DOSE OF PO LOPRESSOR WAS GIVEN. PT IS NOW AFIB IN THE 110'S AND ASYMPTOMATIC.
[2020-10-10 05:25] LABS: BASOPHILS ABSOLUTE AUTO 0.05 K/mm3 (0.00-0.23); BASOPHILS PERCENT AUTO 0 % (0-2); EOSINOPHILS ABSOLUTE AUTO 0.03 K/mm3 (0.00-0.68); EOSINOPHILS PERCENT AUTO 0 % (0-6); Hematocrit 34.1 % (33.0-51.0); IMMATURE GRAN ABSOLUTE AUTO 0.08 K/mm3 (0.00-0.10); IMMATURE GRAN PERCENT AUTO 1 % (0-1); LYMPHOCYTES ABSOLUTE AUTO 0.84 K/mm3 (0.84-5.20); LYMPHOCYTES PERCENT AUTO 5 % (21-46); MONOCYTES PERCENT AUTO 8 % (4-13); Mean Corpuscular HGB 29.3 pg (26.0-34.0); Mean Corpuscular HGB Conc 32.3 g/dL (31.5-36.5); Mean Corpuscular Volume 91 fL (80-100); Mean Platelet Volume 9.3 fL (9.1-12.4); NEUTROPHILS ABSOLUTE AUTO 13.55 K/mm3 (1.96-9.15); NEUTROPHILS PERCENT AUTO 86 % (41-73); Platelet Count 387 K/mm3 (150-400); RDW Standard Deviation 50.6 fL (35.1-46.3); Red Blood Cell Count 3.76 M/mm3 (3.80-5.20); White Blood Cell Count 15.85 K/mm3 (4.00-11.30)
--- NOTE | 2020-10-10 05:27 | NUR ---
MARINE PIPE WELDER SUMMARY PT HAD MULTIPLE RUNS OF AFIB INTO THE 140'S WELL TWO RUNS OF VTACH, (SEE PREVIOUS NOTES). AFTER 2ND IV LOPRESSOR AND PO LOPRESSOR WAS GIVEN PT REMAINED AFIB IN THE 110'S. PT REPORTED PAIN IN HER BACK AND FENTANYL WAS GIVEN WHICH SHE TOLERATED WELL HOWEVER SEVERAL HOURS LATER PT REPORTED PAIN IN HER TOES SO NORCO WAS GIVEN WHICH BROUGHT RELIEF. PT HAS DENIED ANY C/P OR NAUSEA DURING THE SHIFT, WCTM.
[2020-10-10 05:52] LABS: Bun/Creatinine Ratio 24.8 (12.0-20.0); Calcium, Blood 8.7 mg/dL (8.5-10.1); Creatinine, Blood 1.01 mg/dL (0.40-1.00); Potassium, Blood 5.1 mmol/L (3.5-5.5)
[2020-10-10 08:48] LABS: Magnesium, Blood 2.7 mg/dL (1.6-2.4); Phosphorus, Blood 3.2 mg/dL (2.5-4.9); Thyroid Stimulating Hormone 1.8 uIU/mL (0.360-4.800)
--- NOTE | 2020-10-10 10:49 | NUR ---
CALLED DR HARRISON- PT HR IS STILL TACHY AND SHE HAS HAD 3 RUNS OF VTACH PER TELE. PT O2 SATS ARE STILL IN THE 90% RANGE HOWEVER HER TEMP IS RISING, BP REMAINS HIGH DESPITE THE PO METOPROLOL, IV METOPROLOL AND IV LASIX. HR STILL TACHY AND PT IS FEELING SOB NOW, RESP RATE 26. PER DR HARRISON PT IS HAVING AFIB WITH ROAMING VARIANCE RATHER THAN V TACH. PT TO TRANSFER TO PCU.
--- NOTE | 2020-10-10 10:54 | NUR ---
SUMMARY: Admit: 10/08/20 10/10/20- Per chart review with Dr. Vazquez, pt will not be discharging today. She has had a spike in her Temp today. Her CT of lower extremities was negative for DVT, abscess or any cause of cellulitis. But it did show that she osteoarthritis. She has Afib and will be started on medications. No Est. ETA for d/c at this time. -nilsa
--- NOTE | 2020-10-10 10:55 | NUR ---
TRANSFER NOTE- PT TRANSFERED TO PCU 14. GAVE TELEPHONE REPORT TO PINA GRIGGS. FILM MAKER STAYED WITH THE PT THROUGH OUT. PT VITALS REMAIN THE SAME. PLACED ON 2L O2 TO REDUCE STRAIN PT RESP RATE IS STILL HIGH. PT STATED SHE WAS WET UPON TRANSFER HAD A LARGE VOID. CHANGED IN PCU.
[2020-10-10 12:27] LABS: Source, Urine Clean Catch
[2020-10-10 12:49] LABS: Bilirubin, Urine Neg (Neg); Blood, Urine 2+ (Neg); Glucose Qualitative, Urine Neg (Neg); Ketones, Urine Neg (Neg); Leukocyte Esterase, Urine 3+ (Neg); Nitrite, Urine Pos (Neg); Protein, Urine 1+ (Neg); Urobilinogen, Urine NORM (Normal)
[2020-10-10 13:15] LABS: Appearance, Urine Clear (Clear); Color, Urine Yellow (P-Yellow)
[2020-10-10 13:16] LABS: White Blood Cells, Urine TNTC /hpf (0-5)
[2020-10-10 13:17] LABS: Bacteria Many /hpf; Renal Epithelial Rare /hpf (0-Rare); Squamous Epithelial Cells Few /hpf (Few); Transitional Epithelial Cells Few /hpf (0-Rare)
[2020-10-11 05:22] LABS: BASOPHILS ABSOLUTE AUTO 0.05 K/mm3 (0.00-0.23); BASOPHILS PERCENT AUTO 0 % (0-2); EOSINOPHILS ABSOLUTE AUTO 0.07 K/mm3 (0.00-0.68); EOSINOPHILS PERCENT AUTO 0 % (0-6); Hematocrit 32.4 % (33.0-51.0); Hemoglobin 10.5 g/dL (11.5-16.0); IMMATURE GRAN ABSOLUTE AUTO 0.08 K/mm3 (0.00-0.10); IMMATURE GRAN PERCENT AUTO 1 % (0-1); LYMPHOCYTES ABSOLUTE AUTO 0.77 K/mm3 (0.84-5.20); LYMPHOCYTES PERCENT AUTO 5 % (21-46); MONOCYTES ABSOLUTE AUTO 1.44 K/mm3 (0.16-1.47); MONOCYTES PERCENT AUTO 9 % (4-13); Mean Corpuscular HGB 29.1 pg (26.0-34.0); Mean Corpuscular HGB Conc 32.4 g/dL (31.5-36.5); Mean Corpuscular Volume 90 fL (80-100); Mean Platelet Volume 9.6 fL (9.1-12.4); NEUTROPHILS ABSOLUTE AUTO 14.27 K/mm3 (1.96-9.15); NEUTROPHILS PERCENT AUTO 86 % (41-73); Platelet Count 392 K/mm3 (150-400); RDW Coefficient Variation 15.1 % (11.7-14.2); RDW Standard Deviation 50.1 fL (35.1-46.3); Red Blood Cell Count 3.61 M/mm3 (3.80-5.20); White Blood Cell Count 16.68 K/mm3 (4.00-11.30)
[2020-10-11 05:55] LABS: Anion Gap 9 mmol/L (6-16); Blood Urea Nitrogen 23 mg/dL (8-24); Bun/Creatinine Ratio 26.2 (12.0-20.0); CO2, Blood 24 mmol/L (21-32); Calcium, Blood 8.5 mg/dL (8.5-10.1); Chloride, Blood 106 mmol/L (98-108); Creatinine, Blood 0.88 mg/dL (0.40-1.00); Glomerular Filtration Rate >60 (60-); Glucose, Blood 100 mg/dL (70-99); Potassium, Blood 4.4 mmol/L (3.5-5.5); Sodium, Blood 139 mmol/L (136-145)
--- NOTE | 2020-10-11 06:37 | NUR ---
SHIFT SUMMARY PT A&O X3; CONFUSED AT TIMES; VSS; AFIB NOTED ON TELE; HR 100-120; O2 SATS >93 ON 2L NC; PT SLEPT SEVERAL HOURS; BLE ELEVATED ON PILLOWS; NO DISTESS NOTED; CALL LIGHT IN REACH; BED IN LOWEST POSITION; WILL CONTINUE TO MONITOR CLOSELY UNTIL HAND OFF TO DAY SHIFT RN.
--- NOTE | 2020-10-11 19:53 | NUR ---
SHIFT SUMMARY: NO ACUTE CHANGES TO PT CONDITION TODAY. PT CONFUSED AND DROWSY AT TIMES, EASILY AROUSED AND ANSWERS QUESTIONS APPROPRIATELY. PT CONTINUES ON OXYGEN VIA NC AT 2L/MIN, MAINTAINING SATS >92%. PT CONTINUES IN AFIB, RATE 100-115 BPM. BANDAGES TO BLE CHANGED, WOUNDS CLEANED AND DRESSED WITH CALCIUM GLUCONATE W/SILVER, ABD PADS, AND KERLEX. BLE FLOATED ON PILLOWS. DR SORTO TO ROOM FOR CONSULT TODAY, PLAN IS FOR INTERVENTION TOMORROW, PT TO BE NPO AT MIDNIGHT. REPORT HAS BEEN GIVEN TO PINA ORTEGA.
--- NOTE | 2020-10-12 00:46 | NUR ---
PHYSICIAN COMMUNICATION DR BLACKBURN CALLED AROUND 2330, INFORMED ME HE CHANGED ANTIBIOTICS TO IV ZOSYN, ASKED TO MAKE SURE CBC & BMP WERE ORDERED FOR AM, PT/OT TO BE ORDERED & FOR METOPROLOL TO BE GIVEN FOR SYSTOLIC BP >160. AFTER GETTING OFF PHONE c I RECALLED PT WAS NOT ON TELE FOR MED, WENT TO TALK c CHARGE NURSE CAMERON MARTINEZ & HE INFORMED ME DR BLACKBURN HAD CALLED HIM FOR A RATE/RHYTHM OF PT & WHEN INFORMED THERE WAS NO TELE HE THEN ORDERED TELE. WILL CONT TO MONITOR PT.
[2020-10-12 04:48] LABS: BASOPHILS ABSOLUTE AUTO 0.05 K/mm3 (0.00-0.23); BASOPHILS PERCENT AUTO 0 % (0-2); EOSINOPHILS PERCENT AUTO 1 % (0-6); Hematocrit 33.9 % (33.0-51.0); Hemoglobin 10.9 g/dL (11.5-16.0); IMMATURE GRAN ABSOLUTE AUTO 0.11 K/mm3 (0.00-0.10); IMMATURE GRAN PERCENT AUTO 1 % (0-1); LYMPHOCYTES PERCENT AUTO 5 % (21-46); MONOCYTES ABSOLUTE AUTO 1.42 K/mm3 (0.16-1.47); MONOCYTES PERCENT AUTO 8 % (4-13); Mean Corpuscular HGB 28.7 pg (26.0-34.0); Mean Corpuscular HGB Conc 32.2 g/dL (31.5-36.5); Mean Corpuscular Volume 89 fL (80-100); Mean Platelet Volume 9.4 fL (9.1-12.4); NEUTROPHILS ABSOLUTE AUTO 14.62 K/mm3 (1.96-9.15); NEUTROPHILS PERCENT AUTO 85 % (41-73); Platelet Count 429 K/mm3 (150-400); RDW Standard Deviation 49.7 fL (35.1-46.3)
[2020-10-12 05:06] LABS: Anion Gap 7 mmol/L (6-16); Blood Urea Nitrogen 19 mg/dL (8-24); Bun/Creatinine Ratio 23.5 (12.0-20.0); CO2, Blood 25 mmol/L (21-32); Calcium, Blood 8.9 mg/dL (8.5-10.1); Chloride, Blood 107 mmol/L (98-108); Creatinine, Blood 0.81 mg/dL (0.40-1.00); Glomerular Filtration Rate >60 (60-); Glucose, Blood 105 mg/dL (70-99); Potassium, Blood 4.4 mmol/L (3.5-5.5); Sodium, Blood 139 mmol/L (136-145)
--- NOTE | 2020-10-12 05:30 | NUR ---
SHIFT SUMMARY AOX4. ANSWERS ORIENTATION QUESTIONS APPROPRIATE. IS SLOW TO RESPOND, STATES SHE IS VERY HO-CHUNK & HER HEARING AIDS AREN'T WORKING. TEMP 100.0 THIS AM, GAVE TYLENOL & TEMP DECREASED TO 99.2, TELE AFIB 128-130'S AROUND 0130 FOR 20 MIN, GAVE 5MG IV METOPROLOL PER ORDERS, HR DECREASED TO AROUND 100. REPORTS 5-9/10 BURNING PAIN IN BILAT FEET, GAVE 25MCG FENT & PAIN DECREASED TO 4/10, DENIES FURTHER NEED FOR PAIN MEDICATION. BLE ARE RED, HAVE +2 EDEMA, EXCORIATIONS, BANDAGES ARE C/D/I. APPLIED MEPILEX TO COCCYX FOR REDNESS. PT HAS BEEN NPO SINCE MIDNIGHT, FOR PLANNED REVASCULARIZATION BY DR SORTO, EXCEPT A SIP OF WATER c A FEW AM MEDS. HAD 2 INCONT BM THIS SHIFT. CALL LIGHT IN REACH & PT ABLE TO MAKE NEEDS KNOWN.
[2020-10-12 05:33] LABS: Influenza A, PCR Negative (NEGATIVE); Influenza B, PCR Negative (NEGATIVE); Resp Syncytial Virus, PCR Negative (NEGATIVE); SARS-Cov-2 (COVID-19) PCR, MMC Negative (NEGATIVE)
--- NOTE | 2020-10-12 15:08 | NUR ---
10/12/20- PER CHART REVIEW, PT HAS ELECTED TO HAVE REVASCULARIZATION SURGERY ON WITH DR. SORTO. PT AND OT WILL HOLD OFF ON SERVICES UNTIL AFTER PROCEDURE HAS BEEN COMPLETED. PT HAS HAD AN INCREASE IN TEMPERATURE AND (+) URINE CULTURES. -KJW
--- NOTE | 2020-10-12 18:20 | NUR ---
PT SUMMARY: PT HAD REVASCULARIZATION DONE TODAY BY DR SORTO, PT HAS LEFT GROIN ACCESS SITE AND RIGHT INNER ANKLE. PT REMAINED ALERT AND ORIENTED VITALS HRR REMAINS AFIB ELEVATED AT 110'S-130'S, PRN DOSE OF METOPROLOL 50MG TARTRATE PT NOW STAYING AT 115'S, BP SYSTOLIC SLIGHTLY ELEVATED 150-170'S, SATS ABOVE 92% ON 2L OF O2, AFEBRILE. PT IS CURRENTLY LAYING FLAT, LEFT GROIN SITE WITH NO HEMATOMA OR BLEEDING NOTED, DRESSING CDI. DR LUEVANO WAS CONSULTED WENT AND SAW PT TODAY AFTER THE PROCEDURE. BLE WOUND WAS REDRESSED PER DR LUEVANO TO REDRESS WOUND WITH CLEAN DRY DRESSING FOR NOW. PT WAS GIVEN 25MCG OF FENTANYL PAIN 03/10, PT RESTING RIGHT NOW. NO OTHER ISSUES AT THIS TIME. PT TO RESUME DIET ONCE FULLY RECOVERED. WILL MONITOR PT UNTIL END OF SHIFT.
[2020-10-12 18:47] LABS: Vancomycin, Random 5.8 ug/mL
[2020-10-13 05:48] LABS: BASOPHILS ABSOLUTE AUTO 0.06 K/mm3 (0.00-0.23); BASOPHILS PERCENT AUTO 0 % (0-2); EOSINOPHILS ABSOLUTE AUTO 0.25 K/mm3 (0.00-0.68); EOSINOPHILS PERCENT AUTO 2 % (0-6); Hematocrit 32.4 % (33.0-51.0); Hemoglobin 10.6 g/dL (11.5-16.0); IMMATURE GRAN ABSOLUTE AUTO 0.07 K/mm3 (0.00-0.10); IMMATURE GRAN PERCENT AUTO 0 % (0-1); LYMPHOCYTES ABSOLUTE AUTO 0.77 K/mm3 (0.84-5.20); LYMPHOCYTES PERCENT AUTO 5 % (21-46); MONOCYTES ABSOLUTE AUTO 1.59 K/mm3 (0.16-1.47); MONOCYTES PERCENT AUTO 10 % (4-13); Mean Corpuscular HGB 29.7 pg (26.0-34.0); Mean Corpuscular HGB Conc 32.7 g/dL (31.5-36.5); Mean Corpuscular Volume 91 fL (80-100); Mean Platelet Volume 9.6 fL (9.1-12.4); NEUTROPHILS ABSOLUTE AUTO 13.95 K/mm3 (1.96-9.15); NEUTROPHILS PERCENT AUTO 84 % (41-73); Platelet Count 432 K/mm3 (150-400); RDW Coefficient Variation 14.9 % (11.7-14.2); RDW Standard Deviation 49.7 fL (35.1-46.3); Red Blood Cell Count 3.57 M/mm3 (3.80-5.20); White Blood Cell Count 16.69 K/mm3 (4.00-11.30)
--- NOTE | 2020-10-13 06:03 | NUR ---
SHIFT SUMMARY PT RESTED WELL THROUGH NIGHT. PT ALERT AND ORIENTED - ABLE TO MAKE NEEDS KNOWN. TELE AFIB, RATE INCREASED TO 130'S - IV METOPROLOL PUSH GIVEN. RATE CAME DOWN TO LOW 100'S. WEANED FROM 2LNC TO ROOM AIR - SATS >92% ON RA. INCONTINENT BOWEL AND BLADDER - CHANGED ATTENDS NEEDED. C/O PAIN IN RLE, SEE EMAR. VSS. Q2 TURNS INITIATED - PT HAS REDDENED SPOT ON SACRUM, PLACED MEPILEX. CALL LIGHT WITHIN REACH, BED IN LOWEST POSITION. WILL CONTINUE TO MONITOR.
[2020-10-13 06:08] LABS: Alanine Aminotransfer (ALT/SGP 237 U/L (12-78); Albumin, Blood 1.8 g/dL (3.4-5.0); Albumin/Globulin Ratio 0.4 (0.8-1.8); Alk Phos 135 U/L (50-136); Anion Gap 8 mmol/L (6-16); Aspartate Aminotrans (AST/SGOT 235 U/L (12-37); Bilirubin, Total 0.8 mg/dL (0.1-1.0); Blood Urea Nitrogen 18 mg/dL (8-24); Bun/Creatinine Ratio 21.7 (12.0-20.0); CO2, Blood 23 mmol/L (21-32); Calcium, Blood 8.7 mg/dL (8.5-10.1); Chloride, Blood 109 mmol/L (98-108); Creatinine, Blood 0.83 mg/dL (0.40-1.00); Globulin, Blood 5.1 g/dL (2.2-4.0); Glomerular Filtration Rate >60 (60-); Glucose, Blood 104 mg/dL (70-99); Potassium, Blood 4.4 mmol/L (3.5-5.5); Sodium, Blood 140 mmol/L (136-145); Total Protein, Blood 6.9 g/dL (6.4-8.2)
--- NOTE | 2020-10-13 18:09 | NUR ---
PT ARRIVED FROM THE ED THIS EVENING VIA WHEEL CHAIR. PT ORIENTED TO THE ROOM. PAIN MEDICATIONS PROVIDED.
--- NOTE | 2020-10-13 18:11 | NUR ---
SHIFT SUMMARY- PT TRANSFERED FROM PCU TODAY. RECIEVING IV ABX. SHE IS EATING AND DRINKING WELL. SHE WORKED WITH PT THIS AFTERNOON AND AMBULATED TO THE CHAIR. SHE WAS UP IN THE CHAIR FOR DINNER. HER DAUGHTER WAS AT BEDSIDE THIS AFTERNOON. DR. LUEVANO WILL BE IN TOMORROW TO EVALUATE HER FEET. HER BED IS IN THE LOW POSITION AND CALL LIGHT IS WITHIN REACH.
--- NOTE | 2020-10-14 06:42 | NUR ---
SHIFT SUMMARY PATIENT DROWSY OVERNIGHT BUT ROUSES EASILY TO VERBAL STIMULOUS AND TOUCH. PT'S [id number] CALLED AND EXPRESSED THAT THE FAMILY WOULD LIKE TO HAVE THE PATIENT'S DOCTORS CALL THEM SO THAT THEY CAN BE INVOLVED IN HER CARE AND HELP HER MAKE DECISIONS, ESPECIALLY IF THERE IS A POSSIBILITY FOR AMPUTATION ON HER RIGHT LOWER EXTREMITY. PATIENT MEDICATED ONCE PER EMAR FOR PAIN. IVS PATENT AND FLUSHED. CALL LIGHT WITHIN REACH. REPORT GIVEN TO ONCOMING RN.
--- NOTE | 2020-10-14 19:10 | NUR ---
ASSUMED CARE RECEIVED REPORT FROM PINA RODRIGEZ. PT SITTING UP IN BED, NO S/S ACUTE DISTRESS NOTED, RESPS E/U. DENIES NEEDS. CALL LIGHT, POSSESSIONS IN REACH, BED IN LOW POSITION. CONTINUE TO MONITOR.
--- NOTE | 2020-10-14 19:14 | NUR ---
a+o, no acute changes during shift, dressings changed as written, dr in to consult he called family and discussed options, consult called in to ortho, abx infusing with no s/sx of infection or infiltration, saline locked also, call light in reach, still on iso for mrsa, rm air, medicated as ordered
[2020-10-14 19:56] LABS: Vancomycin, Trough 15.1 ug/mL (5.0-10.0)
--- NOTE | 2020-10-15 04:21 | NUR ---
SHIFT SUMMARY PT RESTING COMFORTABLY, NO ACUTE NEEDS OR DISTRESS NOTED AT THIS TIME, RESPS E/U. VS REVIEWED, WNL. PT HAS BEEN RUNNING AFIB, HR AVERAGING IN LOW 100'S. PT ASYMPTOMATIC, ASLEEP T/O NIGHT, NO C/O CP, PRESSURE,SOB. DENIES PAIN. DRSGS TO BLE C/D/I, HEELS FLOATED. CALL LIGHT, POSSESSIONS IN REACH, CONTINUE TO MONITOR UNTIL REPORT GIVEN TO DAY RN.
--- NOTE | 2020-10-15 16:48 | NUR ---
10/15/20- spoke with pt about her referral for SNF. Pt stated that she would like to go to [facility]. Filled out SNF referral form and dropped of to [facility]. Per Dr. Hernandez, pt will be having an amputation tomorrow. No est ETA for d/c at this time. -nilsa
--- NOTE | 2020-10-15 18:42 | NUR ---
a+o, but easily confused, awaiting surgery, npo at mid night, hold blood thinner prior to surgery, call light in reach, rm air, saline locked, dressing changed as directed by , will continue to monitor and treat until share bsr with noc nurse and pt, family in to visit,
--- NOTE | 2020-10-16 05:44 | NUR ---
SHIFT SUMMARY- PT. A&O, PLEASANT AND COOPERATIVE WITH CARE. C/O LAST NIGHT OF MATTI LEG PAIN, MEDICATED PER EMAR WITH GOOD EFFECT. PT. SCHEDULED FOR R BKA, NPO SINCE MN. APPEARED TO HAVE SLEPT COMFORTABLY DURING THE NIGHT, NO APPARENT DISTRESS NOTED. VSS. CALL LIGHT WITHIN REACH AND SIDE RAILS UPX2. WILL CONT TO MONITOR.
--- NOTE | 2020-10-16 10:53 | NUR ---
THIS AM PT'S DIL UP TO SEE HER. PT STATE DESIRE FOR AMP SURG BLE. BUS ANALYST NOTIFIED WILL NOTIFY DR CASTANON. BUS ANALYST'S UP TO TAKE PT OUT FOR SURG APPROX 1000. PT IS A/O X4, PLEASANT, STATE NO DISCOMFORT @ THAT TIME, STATE READY FOR SURG.
--- NOTE | 2020-10-16 16:58 | NUR ---
SHIFT SUMMARY PT A&OX4, VSS, S/P R AKA/CDI, ELEVATED, BEDREST. PAIN MANAGED WITH 25 MCGS FENT. TALHA PO, DENIES N&V. ABX ORDERED. ATTENDS ON, INCONTINENT. WILL REPORT TO ONCOMING NOC RN.
[2020-10-16 19:24] LABS: Vancomycin, Trough 13.9 ug/mL (5.0-10.0)
[2020-10-17 04:11] LABS: BASOPHILS ABSOLUTE AUTO 0.03 K/mm3 (0.00-0.23); BASOPHILS PERCENT AUTO 0 % (0-2); EOSINOPHILS ABSOLUTE AUTO 0.02 K/mm3 (0.00-0.68); EOSINOPHILS PERCENT AUTO 0 % (0-6); Hematocrit 28.9 % (33.0-51.0); Hemoglobin 9.4 g/dL (11.5-16.0); IMMATURE GRAN ABSOLUTE AUTO 0.15 K/mm3 (0.00-0.10); IMMATURE GRAN PERCENT AUTO 1 % (0-1); LYMPHOCYTES ABSOLUTE AUTO 0.82 K/mm3 (0.84-5.20); LYMPHOCYTES PERCENT AUTO 4 % (21-46); MONOCYTES ABSOLUTE AUTO 1.66 K/mm3 (0.16-1.47); MONOCYTES PERCENT AUTO 8 % (4-13); Mean Corpuscular HGB 29.4 pg (26.0-34.0); Mean Corpuscular HGB Conc 32.5 g/dL (31.5-36.5); Mean Corpuscular Volume 90 fL (80-100); Mean Platelet Volume 9.5 fL (9.1-12.4); NEUTROPHILS ABSOLUTE AUTO 18.85 K/mm3 (1.96-9.15); NEUTROPHILS PERCENT AUTO 88 % (41-73); Platelet Count 422 K/mm3 (150-400); RDW Coefficient Variation 14.6 % (11.7-14.2); RDW Standard Deviation 46.4 fL (35.1-46.3); White Blood Cell Count 21.53 K/mm3 (4.00-11.30)
[2020-10-17 04:34] LABS: Alanine Aminotransfer (ALT/SGP 170 U/L (12-78); Albumin, Blood 1.8 g/dL (3.4-5.0); Albumin/Globulin Ratio 0.4 (0.8-1.8); Alk Phos 113 U/L (50-136); Anion Gap 6 mmol/L (6-16); Aspartate Aminotrans (AST/SGOT 98 U/L (12-37); Bilirubin, Total 0.4 mg/dL (0.1-1.0); Blood Urea Nitrogen 17 mg/dL (8-24); Bun/Creatinine Ratio 24.4 (12.0-20.0); CO2, Blood 24 mmol/L (21-32); Calcium, Blood 8.4 mg/dL (8.5-10.1); Chloride, Blood 109 mmol/L (98-108); Globulin, Blood 4.4 g/dL (2.2-4.0); Glomerular Filtration Rate >60 (60-); Glucose, Blood 115 mg/dL (70-99); Potassium, Blood 3.9 mmol/L (3.5-5.5); Sodium, Blood 139 mmol/L (136-145); Total Protein, Blood 6.2 g/dL (6.4-8.2)
--- NOTE | 2020-10-17 05:02 | NUR ---
SHIFT SUMMARY PT HAS BEEN A/O X3-4; FORGETFUL AT TIMES. TOLERLATING PO INTAKE AND VOIDING USING EITHER BEDPAN OR HAVING INCONTINENT VOIDS IN ATTENS. ATTENS CHANGED PRN. PT REPOSITIONED MULT TIMES OVERNIGHT WITH LEGS ELEVATED IN BED. PAIN MANAGED WITH PO PAIN MED PER ORDERS. PT REPORTS BEING COMFORTABLE AT REST. MEPILEX PLACED ON COCCYX FOR REDNESS. STUMP SOCK IN PLACE, CDI, TO R LEG. PT RESTING IN BED WITH CALL LIGHT IN REACH AT THIS TIME.
--- NOTE | 2020-10-17 16:23 | NUR ---
SHIFT SUMMARY PT A&OX4, VSS, TELE NSR @ 75 BPM. POD1 R AKA, DRESSING CDI. TWO IVS, ABX INFUSING PER EMAR. PAIN MANAGED WITH 5 MG OXY PRN. PT CALLS APPROPRIATELY FOR BEDPAN, ATTENDS ON FOR LEAKAGE. VOIDING WELL. TALHA PO, DENIES N&V. BEDREST, REPOSITIONS WELL W/MIN ASSIST, BLE ELEVATED. PLAN FOR NPO MIDNIGHT FOR POSSIBLE LLE AKA 10/18. WILL REPORT TO ONCOMING NOC RN.
--- NOTE | 2020-10-18 06:10 | NUR ---
SHIFT SUMMARY PT HAS BEEN A/O X4, FORGETFUL AT TIMES. USING CALL LIGHT OVERNIGHT AND NOTIFIES STAFF WHEN SHE NEEDS TO USE BEDPAN. REPOSITIONED MULT TIMES WITH LEGS ELEVATED ON PILLOWS AND HOB ELEVATED PER PT REQUEST. PAIN MANAGED WITH PO PAIN MED PER ORDERS. PT HAS BEEN NPO SINCE MIDNIGHT FOR SURGERY TODAY. BP WAS ELEVATED OVERNIGHT; GIVEN PRN PO LOPRESSER PER ORDERS. PT RESTING IN BED AT THIS TIME, CALL LIGHT IN REACH.
--- NOTE | 2020-10-18 15:11 | NUR ---
SUMMARY: 10/18/20- Per chart review with Dr. Kwok, pt is scheduled to have amputation of her left leg above her knee tomorrow. Dr. 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 Pt plans to go to SNF upon d/c and would like to go to [facility]. Screening form has been completed and given to [facility]. -nilsa
--- NOTE | 2020-10-18 17:09 | NUR ---
SHIFT SUMMARY PT'S PAIN WELL MANAGED TODAY. EATING, DRINKING, AND VOIDING. DISCUSSED AND REQUESTED BOWEL CARE FROM DR AGUDELO. PT PLEASANT AND COOPERATIVE TODAY. NO DRAINAGE OR CHANGSE TO R STUMP TODAY.
[2020-10-18 20:05] LABS: Vancomycin, Trough 14.2 ug/mL (5.0-10.0)
--- NOTE | 2020-10-19 04:00 | NUR ---
SHIFT SUMMARY: PT S/P R AKA. STUMP SOCK IN PLACE WITHOUT VISIBLE DRG. EXTREMITY ELEVATED ON PILLOW. PT BEGAN TO COMPLAIN OF INCREASING PAIN LATER IN SHIFT. MEDICATED WITH 5MG OXY. PT CONTINUED TO REPORT 8/10 PAIN AND WAS THEN MEDICATED WITH 25MCG OF FENTANYL AND FLEXIRIL PER EMAR. PT HAS BEEN A&O X4. USING CALL LIGHT WHEN NEEDING TO USE BEDPAN. VOIDING WELL. VSS THIS SHIFT. A/FIB PER PLACING JUDGE. PT DID CONVERT TO NSR THIS MORNING. PT HAS BEEN NPO SINCE MIDNIGHT FOR PLANNED AMPUTATION TO LLE.
[2020-10-19 04:52] LABS: BASOPHILS ABSOLUTE AUTO 0.07 K/mm3 (0.00-0.23); BASOPHILS PERCENT AUTO 1 % (0-2); EOSINOPHILS ABSOLUTE AUTO 0.51 K/mm3 (0.00-0.68); EOSINOPHILS PERCENT AUTO 3 % (0-6); Hematocrit 33.5 % (33.0-51.0); Hemoglobin 10.6 g/dL (11.5-16.0); IMMATURE GRAN ABSOLUTE AUTO 0.11 K/mm3 (0.00-0.10); IMMATURE GRAN PERCENT AUTO 1 % (0-1); LYMPHOCYTES ABSOLUTE AUTO 0.98 K/mm3 (0.84-5.20); LYMPHOCYTES PERCENT AUTO 6 % (21-46); MONOCYTES ABSOLUTE AUTO 1.33 K/mm3 (0.16-1.47); MONOCYTES PERCENT AUTO 9 % (4-13); Mean Corpuscular HGB 28.6 pg (26.0-34.0); Mean Corpuscular HGB Conc 31.6 g/dL (31.5-36.5); Mean Corpuscular Volume 90 fL (80-100); Mean Platelet Volume 9.2 fL (9.1-12.4); NEUTROPHILS ABSOLUTE AUTO 12.47 K/mm3 (1.96-9.15); NEUTROPHILS PERCENT AUTO 81 % (41-73); Platelet Count 470 K/mm3 (150-400); RDW Coefficient Variation 15.5 % (11.7-14.2); RDW Standard Deviation 48.7 fL (35.1-46.3); Red Blood Cell Count 3.71 M/mm3 (3.80-5.20); White Blood Cell Count 15.47 K/mm3 (4.00-11.30)
[2020-10-19 05:21] LABS: Alanine Aminotransfer (ALT/SGP 132 U/L (12-78); Albumin, Blood 1.9 g/dL (3.4-5.0); Albumin/Globulin Ratio 0.4 (0.8-1.8); Alk Phos 105 U/L (50-136); Anion Gap 8 mmol/L (6-16); Aspartate Aminotrans (AST/SGOT 77 U/L (12-37); Bilirubin, Total 0.6 mg/dL (0.1-1.0); Blood Urea Nitrogen 13 mg/dL (8-24); Bun/Creatinine Ratio 19.8 (12.0-20.0); CO2, Blood 24 mmol/L (21-32); Calcium, Blood 8.6 mg/dL (8.5-10.1); Chloride, Blood 106 mmol/L (98-108); Creatinine, Blood 0.66 mg/dL (0.40-1.00); Globulin, Blood 4.5 g/dL (2.2-4.0); Glomerular Filtration Rate >60 (60-); Glucose, Blood 116 mg/dL (70-99); Magnesium, Blood 2.3 mg/dL (1.6-2.4); Phosphorus, Blood 3.5 mg/dL (2.5-4.9); Sodium, Blood 138 mmol/L (136-145); Total Protein, Blood 6.4 g/dL (6.4-8.2)
--- NOTE | 2020-10-19 13:20 | NUR ---
PT TO DAY SURGERY VIA HOSPITAL BED
--- NOTE | 2020-10-19 13:30 | NUR ---
History, Chart, Medications and Allergies reviewed before start of procedure. Patient confirms NPO status and agrees with scheduled surgery. Pre-Op teaching done. Pt verbalizes understanding. PT TO SDS FROM 209. RING TAPED PER REQUEST. UPPER DENTURE AND L HEARING AIDE REMOVED.
--- NOTE | 2020-10-19 17:02 | NUR ---
RETURN POST OP PT RETURNS IN HOSPITAL BED. ALERT BUT FALLS ASLEEP QUICKLY AFTER DONE ASNWERING QUESTIONS. PLEASANT. PAIN 03/10. SIPS OF WATER GIVEN. 1L 02. VSS. HTN NOTED. BILAT STUMP SOCKS CDI W/ NO DRAINAGE NOTED. SKIN PWD AT BEGINNING OF STUMP STOCKINGS, BILAT. GOOD CAP REFIL AT THIS SITE WELL. LUNGS CLEAR. TELE PLACED.
[2020-10-20 04:28] LABS: BASOPHILS ABSOLUTE AUTO 0.02 K/mm3 (0.00-0.23); BASOPHILS PERCENT AUTO 0 % (0-2); EOSINOPHILS ABSOLUTE AUTO 0.03 K/mm3 (0.00-0.68); EOSINOPHILS PERCENT AUTO 0 % (0-6); Hematocrit 31.1 % (33.0-51.0); Hemoglobin 9.8 g/dL (11.5-16.0); IMMATURE GRAN PERCENT AUTO 1 % (0-1); LYMPHOCYTES ABSOLUTE AUTO 0.73 K/mm3 (0.84-5.20); LYMPHOCYTES PERCENT AUTO 4 % (21-46); MONOCYTES ABSOLUTE AUTO 1.33 K/mm3 (0.16-1.47); MONOCYTES PERCENT AUTO 8 % (4-13); Mean Corpuscular HGB 28.6 pg (26.0-34.0); Mean Corpuscular HGB Conc 31.5 g/dL (31.5-36.5); Mean Corpuscular Volume 91 fL (80-100); Mean Platelet Volume 9.2 fL (9.1-12.4); NEUTROPHILS ABSOLUTE AUTO 15.41 K/mm3 (1.96-9.15); NEUTROPHILS PERCENT AUTO 88 % (41-73); Platelet Count 455 K/mm3 (150-400); RDW Coefficient Variation 15.5 % (11.7-14.2); RDW Standard Deviation 49.2 fL (35.1-46.3); Red Blood Cell Count 3.43 M/mm3 (3.80-5.20); White Blood Cell Count 17.62 K/mm3 (4.00-11.30)
[2020-10-20 04:44] LABS: Alanine Aminotransfer (ALT/SGP 109 U/L (12-78); Albumin, Blood 1.9 g/dL (3.4-5.0); Albumin/Globulin Ratio 0.4 (0.8-1.8); Alk Phos 106 U/L (50-136); Anion Gap 6 mmol/L (6-16); Aspartate Aminotrans (AST/SGOT 61 U/L (12-37); Bilirubin, Total 0.5 mg/dL (0.1-1.0); Blood Urea Nitrogen 13 mg/dL (8-24); Bun/Creatinine Ratio 19.8 (12.0-20.0); CO2, Blood 25 mmol/L (21-32); Calcium, Blood 8.7 mg/dL (8.5-10.1); Chloride, Blood 108 mmol/L (98-108); Creatinine, Blood 0.66 mg/dL (0.40-1.00); Globulin, Blood 4.6 g/dL (2.2-4.0); Glomerular Filtration Rate >60 (60-); Glucose, Blood 120 mg/dL (70-99); Magnesium, Blood 2.4 mg/dL (1.6-2.4); Potassium, Blood 4.3 mmol/L (3.5-5.5); Sodium, Blood 139 mmol/L (136-145); Total Protein, Blood 6.5 g/dL (6.4-8.2)
--- NOTE | 2020-10-20 05:22 | NUR ---
SHIFT SUMMARY: PT S/P BILATERAL AKA. BILAT STUMPS ELEVATED THROUGHOUT NIGHT. STUMP SOCKS C/D/I WITHOUT VISIBLE DRAINAGE. PT SLEEPY MOST OF SHIFT. HTN; ALL OTHER VS WNL. NSR WITH PAC'S PER TELE. PT MEDICATED THIS MORNING WITH 1 OXY AND FELXERIL PER EMAR. PT VOIDED ONCE THIS SHIFT; TOTAL OF 500CC URINE OUTPUT. USING BEDPAN WITH 2 MAX ASSIST. FLUIDS TKO WITH ABX INFUSING.
--- NOTE | 2020-10-20 19:37 | NUR ---
SHIFT SUMMARY PT WAS PLEASANT AND COOPERATIVE T/O DAY. EATING, DRINKING, VOIDING, & BM'S. VERY WEAK W/ THERAPY. PAIN WELL MANAGED.
[2020-10-20 19:41] LABS: Vancomycin, Trough 16.7 ug/mL (5.0-10.0)
--- NOTE | 2020-10-21 02:42 | NUR ---
SHIFT SUMMARY: POD 2 L AKA AND POD 6 R AKA PATIENT IS ALERT AND ORIENTED X4 WHILE AWAKE. SHE HAS BEEN SLEEPING MAJORITY OF THE SHIFT BUT IS EASILY AROUSABLE. VITALS ARE WNL. PAIN IS CONTROLLED WITH 1 PERCOCET AND FLEXIRIL. BILATERAL STUMPS HAVE BEEN ELEVATED ON PILLOWS THROUGHOUT THE NIGHT. STUMPS SOCKS ARE C/D/I WITHOUT VISIBLE DRAINAGE. SHE IS ON TELE AND WAS ON SR AT THE BEGINNING OF SHIFT. SHE HAS VOIDED AT LEAST THREE TIMES DURING THE SHIFT ON BEDPAN. YELLOW URINE OUTPUT IN BEDPAN. SHE IS A 2 PERSON MAX ASSIST WHEN GETTING BEDPAN UNDERNEATH HER. BARRIER CREAM WAS APPLIED TO INNER THIGHS SINCE THERE IS REDNESS. PATIENT REPORTS IT HELPS IT FEEL BETTER. THE PLAN IS TO HAVE A DRESSING CHANGE TODAY BY DR. FRANCO AND IV ABX. ALSO ENCOURAGING FLUIDS PO.
[2020-10-21 04:15] LABS: BASOPHILS ABSOLUTE AUTO 0.05 K/mm3 (0.00-0.23); BASOPHILS PERCENT AUTO 0 % (0-2); EOSINOPHILS ABSOLUTE AUTO 0.49 K/mm3 (0.00-0.68); EOSINOPHILS PERCENT AUTO 4 % (0-6); Hematocrit 30.2 % (33.0-51.0); Hemoglobin 9.7 g/dL (11.5-16.0); IMMATURE GRAN ABSOLUTE AUTO 0.06 K/mm3 (0.00-0.10); IMMATURE GRAN PERCENT AUTO 0 % (0-1); LYMPHOCYTES ABSOLUTE AUTO 1.14 K/mm3 (0.84-5.20); LYMPHOCYTES PERCENT AUTO 9 % (21-46); MONOCYTES ABSOLUTE AUTO 1.33 K/mm3 (0.16-1.47); MONOCYTES PERCENT AUTO 10 % (4-13); Mean Corpuscular HGB 29.3 pg (26.0-34.0); Mean Corpuscular HGB Conc 32.1 g/dL (31.5-36.5); Mean Corpuscular Volume 91 fL (80-100); Mean Platelet Volume 9.1 fL (9.1-12.4); NEUTROPHILS ABSOLUTE AUTO 10.42 K/mm3 (1.96-9.15); NEUTROPHILS PERCENT AUTO 77 % (41-73); Platelet Count 427 K/mm3 (150-400); RDW Coefficient Variation 15.7 % (11.7-14.2); Red Blood Cell Count 3.31 M/mm3 (3.80-5.20); White Blood Cell Count 13.49 K/mm3 (4.00-11.30)
[2020-10-21 04:34] LABS: Alanine Aminotransfer (ALT/SGP 168 U/L (12-78); Albumin, Blood 1.9 g/dL (3.4-5.0); Albumin/Globulin Ratio 0.4 (0.8-1.8); Alk Phos 95 U/L (50-136); Anion Gap 6 mmol/L (6-16); Aspartate Aminotrans (AST/SGOT 139 U/L (12-37); Bilirubin, Total 0.5 mg/dL (0.1-1.0); Blood Urea Nitrogen 17 mg/dL (8-24); Bun/Creatinine Ratio 27.4 (12.0-20.0); CO2, Blood 27 mmol/L (21-32); Calcium, Blood 8.7 mg/dL (8.5-10.1); Chloride, Blood 107 mmol/L (98-108); Creatinine, Blood 0.62 mg/dL (0.40-1.00); Globulin, Blood 4.4 g/dL (2.2-4.0); Glomerular Filtration Rate >60 (60-); Glucose, Blood 97 mg/dL (70-99); Potassium, Blood 3.8 mmol/L (3.5-5.5); Sodium, Blood 140 mmol/L (136-145); Total Protein, Blood 6.3 g/dL (6.4-8.2)
[2020-10-21 05:11] LABS: Percent Saturation 13.7 % (15.0-50.0)
[2020-10-21 07:09] LABS: HBSAG SCREEN Negative (Negative); HEP A AB, IGM Positive (Negative); HEP B CORE AB, IGM Negative (Negative); HEP C VIRUS AB <0.1 (0.0-0.9)
--- NOTE | 2020-10-21 17:09 | NUR ---
0730 PT HAS IV PRESENT RIGHT AC AT TIME OF MY ASSESSMENT
--- NOTE | 2020-10-21 17:18 | NUR ---
summary pt alert and oriented throughout shift. repoprts pain is adequately controlled. pt repositioned q 2 hours off of coccyx. bilat stump dressinggs dry and intact
--- NOTE | 2020-10-21 19:08 | NUR ---
10/21/20 LASHAY COMPLETE- Met with desmond Luevano for d/c to [facility] rehab is Sunday. Met with Leanne and her daughter, discussed discharge Sunday, Rocio to follow her care at [facility]. Transition of care letter left for her and explained. Rocio will call [facility] Sunday or Sunday for lashay and schedule follow up appointment. leana
--- NOTE | 2020-10-22 06:33 | NUR ---
SHIFT SUMMARY LYING IN SEMI FOWLERS WITH EYES CLOSED, SLEPT WELL. PRN PAIN MEDS ADMINISTERED X1 PER PT REQUEST. BLE BKA ELEVATED ON PILLOWS, NO EDEMA NOTED. NO SIGNIFICANT CHANGES NOTED THIS SHIFT. HAS BEEN PLEASANT AND COOPERATIVE WITH CARE THIS SHIFT. DENIES FURTHER NEEDS OR WANTS AT THIS TIME. SAFETY MEASURES IN PLACE. WILL CONTINUE TO MOITOR UNTIL HABD OFF TO ONCOMING SHIFY USING SBAR.
[2020-10-22 12:52] LABS: Influenza A, PCR NEGATIVE (NEGATIVE); Influenza B, PCR NEGATIVE (NEGATIVE); Resp Syncytial Virus, PCR NEGATIVE (NEGATIVE); SARS-Cov-2 (COVID-19) PCR, MMC NEGATIVE (NEGATIVE)
--- NOTE | 2020-10-22 15:19 | NUR ---
NOTIFIED BY CARE MANAGEMENT THAT PT WILL BE TRANSFERRING TO SNF AT 1630 TODAY. SPOKE WITH PATIENT WHO IS AGREEABLE TO TRANSPORT
--- NOTE | 2020-10-22 16:26 | NUR ---
1435 REPORT CALLED TO ZANA AT [facility].
--- NOTE | 2020-10-22 16:58 | NUR ---
pt to wheelchair with 3 person assist. discharged to transfer to [facility] rehab per wheelchair van. pt alert and oriented, agrees to plan of snf discharge. helen po food and fuid without nausea. pt reports pain well controlled. voiding on bedpan clear yellow urine
== END 2020-10-22 17:00 | DRG 240 ==
LOC: ER 21:23 → MEDS 21:24 → PCU 10-09 16:13 → SURS 10-09 16:13 → MEDS 10-09 16:14 → PCU 10-10 10:18 → MEDS 10-13 10:48 → SURS 10-16 13:19
PROVIDERS: Emergency Medicine; Family Medicine; Hospitalist; Internal Medicine; Internal Medicine Cardiovascular Disease; Orthopaedic Surgery; Pharmacist; Radiology Diagnostic Radiology; ADMIT Internal Medicine
PROC: 047R3ZZ Dilation of Right Posterior Tibial Artery, Percutaneous Approach (ICD-10-PCS; 2020-10-12)
PROC: 047T3DZ Dilation of Right Peroneal Artery with Intraluminal Device, Percutaneous Approach (ICD-10-PCS; 2020-10-12)
PROC: B41DYZZ Fluoroscopy of Aorta and Bilateral Lower Extremity Arteries using Other Contrast (ICD-10-PCS; 2020-10-12)
PROC: 0Y6C0Z3 Detachment at Right Upper Leg, Low, Open Approach (ICD-10-PCS; 2020-10-16)
PROC: 0Y6D0Z3 Detachment at Left Upper Leg, Low, Open Approach (ICD-10-PCS; principal; 2020-10-19 14:00)
DX: I73.89 Other specified peripheral vascular diseases (principal); I48.20 Chronic atrial fibrillation, unspecified; L03.116 Cellulitis of left lower limb; L03.115 Cellulitis of right lower limb; N39.0 Urinary tract infection, site not specified; N17.9 Acute kidney failure, unspecified; I13.0 Hypertensive heart and chronic kidney disease with heart failure and stage 1 through stage 4 chronic kidney disease, or unspecified chronic kidney disease; I50.32 Chronic diastolic (congestive) heart failure; I82.819 Embolism and thrombosis of superficial veins of unspecified lower extremity; E46 Unspecified protein-calorie malnutrition; D50.9 Iron deficiency anemia, unspecified; R62.7 Adult failure to thrive; I25.10 Atherosclerotic heart disease of native coronary artery without angina pectoris; Z66 Do not resuscitate; Z86.73 Personal history of transient ischemic attack (TIA), and cerebral infarction without residual deficits; I48.0 Paroxysmal atrial fibrillation; N18.32 Chronic kidney disease, stage 3b; D63.1 Anemia in chronic kidney disease; E03.9 Hypothyroidism, unspecified; E78.5 Hyperlipidemia, unspecified; B96.20 Unspecified Escherichia coli [E. coli] as the cause of diseases classified elsewhere; I25.2 Old myocardial infarction; E66.9 Obesity, unspecified; Z68.30 Body mass index [BMI] 30.0-30.9, adult
CPT/HCPCS: 0241U; 36415; 37230; 37232; 71046; 73700; 75625; 75716; 75774; 76705; 76770; 76937; 80048; 80053; 80074; 80202; 81001; 82565; 82728; 83540; 83550; 83605; 83735; 83880; 84100; 84443; 85025; 85347; 85610; 87040; 87077; 87086; 87186; 88307; 93005; 93010; 96365; 96366; 96374; 96375; 96376; 97110; 97112; 97116; 97161; 97166; 97168; 97530; 97535; 99152; 99153; 99285-25; A9270; C1725; C1760; C1769; C1874; C1887; C1894; G0378; J0295; J0696; J1100; J1644; J1650; J1940; J2250; J2370; J2405; J2543; J2704; J3010; J3370; J7030; J7040; J7050; J7120; Q9967

== ENCOUNTER 2021-01-06 08:00 | Day surgery (SDC) | payer OTHER | END 2021-01-06 23:59 | disposition home or self-care (01) | LOC: WOUND 08:00 | DX: L89.892 Pressure ulcer of other site, stage 2 (principal); I70.203 Unspecified atherosclerosis of native arteries of extremities, bilateral legs; Z89.611 Acquired absence of right leg above knee; Z89.612 Acquired absence of left leg above knee | CPT/HCPCS: A9270; G0463 ==

== ENCOUNTER 2021-01-11 01:33 | Day surgery (SDC) | payer OTHER | END 2021-01-11 23:14 | disposition home or self-care (01) | LOC: WOUND 01:33 | DX: T87.89 Other complications of amputation stump (principal); L89.892 Pressure ulcer of other site, stage 2; I70.203 Unspecified atherosclerosis of native arteries of extremities, bilateral legs; Z89.611 Acquired absence of right leg above knee; Z89.612 Acquired absence of left leg above knee | CPT/HCPCS: A9270 ==

== ENCOUNTER 2021-01-19 00:28 | Day surgery (SDC) | payer OTHER | END 2021-01-19 22:45 | disposition home or self-care (01) | LOC: WOUND 00:28 | DX: T87.89 Other complications of amputation stump (principal); L89.892 Pressure ulcer of other site, stage 2; I10 Essential (primary) hypertension; I73.9 Peripheral vascular disease, unspecified; M19.90 Unspecified osteoarthritis, unspecified site; Z89.611 Acquired absence of right leg above knee; Z89.612 Acquired absence of left leg above knee | CPT/HCPCS: A9270; G0463 ==

== ENCOUNTER 2021-01-26 01:13 | Day surgery (SDC) | payer OTHER | END 2021-01-26 23:18 | disposition home or self-care (01) | LOC: WOUND 01:13 | DX: S71.101A Unspecified open wound, right thigh, initial encounter (principal); X58.XXXA Exposure to other specified factors, initial encounter; L89.892 Pressure ulcer of other site, stage 2; I70.203 Unspecified atherosclerosis of native arteries of extremities, bilateral legs; Z89.611 Acquired absence of right leg above knee; Z89.612 Acquired absence of left leg above knee; I10 Essential (primary) hypertension; E03.9 Hypothyroidism, unspecified | CPT/HCPCS: A9270 ==

== ENCOUNTER 2021-02-16 03:49 | Day surgery (SDC) | payer OTHER | END 2021-02-16 22:51 | disposition home or self-care (01) | LOC: WOUND 03:49 | DX: L89.892 Pressure ulcer of other site, stage 2 (principal); I70.203 Unspecified atherosclerosis of native arteries of extremities, bilateral legs; Z89.611 Acquired absence of right leg above knee; Z89.612 Acquired absence of left leg above knee | CPT/HCPCS: A9270; G0463 ==

== ENCOUNTER 2021-02-23 03:27 | Day surgery (SDC) | payer OTHER | END 2021-02-23 23:27 | disposition home or self-care (01) | LOC: WOUND 03:27 | DX: L89.892 Pressure ulcer of other site, stage 2 (principal); I70.203 Unspecified atherosclerosis of native arteries of extremities, bilateral legs; Z89.611 Acquired absence of right leg above knee; Z89.612 Acquired absence of left leg above knee; I10 Essential (primary) hypertension; E03.9 Hypothyroidism, unspecified | CPT/HCPCS: A9270; G0463 ==

== ENCOUNTER 2021-03-02 04:40 | Day surgery (SDC) | payer OTHER | END 2021-03-02 22:57 | disposition home or self-care (01) | LOC: WOUND 04:40 | DX: L89.892 Pressure ulcer of other site, stage 2 (principal); I70.203 Unspecified atherosclerosis of native arteries of extremities, bilateral legs; I10 Essential (primary) hypertension; Z89.522 Acquired absence of left knee; Z89.521 Acquired absence of right knee | CPT/HCPCS: G0463 ==

== ENCOUNTER 2021-03-09 02:25 | Day surgery (SDC) | payer OTHER | END 2021-03-09 23:51 | disposition home or self-care (01) | LOC: WOUND 02:25 | DX: L89.892 Pressure ulcer of other site, stage 2 (principal); I70.203 Unspecified atherosclerosis of native arteries of extremities, bilateral legs; I10 Essential (primary) hypertension; E03.9 Hypothyroidism, unspecified; Z89.611 Acquired absence of right leg above knee; Z89.612 Acquired absence of left leg above knee | CPT/HCPCS: A9270; G0463 ==

== ENCOUNTER → 2021-04-29 | Outpatient (CLI) | payer OTHER | END | disposition home or self-care (01) | LOC: LAB SHORT 14:56 → LAB 14:56 | DX: N39.0 Urinary tract infection, site not specified (principal) | CPT/HCPCS: 87077; 87086; 87186 ==

== ENCOUNTER → 2021-07-09 | Outpatient (CLI) | payer OTHER | END | disposition home or self-care (01) | LOC: LAB SHORT 15:41 → LAB 15:41 | DX: N39.0 Urinary tract infection, site not specified (principal) | CPT/HCPCS: 87086 ==

== ENCOUNTER → 2021-10-24 | Outpatient (CLI) | payer OTHER ==
[2021-10-25 15:23] LABS: Adenovirus F 40/41 Not Detected (NOT DETECT); Astrovirus Not Detected (NOT DETECT); Campylobacter Sp Not Detected (NOT DETECT); Cryptosporidium Not Detected (NOT DETECT); Cyclospora Cayetanensis Not Detected (NOT DETECT); E. Coli O157 Not Detected (NOT DETECT); Entamoeba Histolytica Not Detected (NOT DETECT); Enteroaggregative E. coli-EAEC Not Detected (NOT DETECT); Enteropathogenic E. coli-EPEC Not Detected (NOT DETECT); Enterotoxigenic E. coli-ETEC Not Detected (NOT DETECT); Giardia Lamblia Not Detected (NOT DETECT); Norovirus GI/GII Not Detected (NOT DETECT); Plesiomonas Shigelloides Not Detected (NOT DETECT); Rotavirus A Not Detected (NOT DETECT); Salmonella Sp Not Detected (NOT DETECT); Sapovirus Not Detected (NOT DETECT); Shiga Toxin-prod E. coli-STEC Not Detected (NOT DETECT); Shigella/Enteroin E. coli-EIEC Not Detected (NOT DETECT); Vibrio Cholerae Not Detected (NOT DETECT); Vibrio Sp Not Detected (NOT DETECT); Yersinia Enterocolitica Not Detected (NOT DETECT)
== END ==
LOC: LAB SHORT 18:00
PROVIDERS: Family Medicine
DX: R19.7 Diarrhea, unspecified (principal)
CPT/HCPCS: 0097U; 87324

== ENCOUNTER → 2021-12-22 | Outpatient (CLI) | payer OTHER ==
[2021-12-22 15:40] LABS: BASOPHILS ABSOLUTE AUTO 0.03 K/mm3 (0.00-0.23); BASOPHILS PERCENT AUTO 0 % (0-2); EOSINOPHILS ABSOLUTE AUTO 0.16 K/mm3 (0.00-0.68); EOSINOPHILS PERCENT AUTO 2 % (0-6); Hematocrit 36.8 % (33.0-51.0); Hemoglobin 12.2 g/dL (11.5-16.0); IMMATURE GRAN ABSOLUTE AUTO 0.01 K/mm3 (0.00-0.10); IMMATURE GRAN PERCENT AUTO 0 % (0-1); LYMPHOCYTES ABSOLUTE AUTO 1.14 K/mm3 (0.84-5.20); LYMPHOCYTES PERCENT AUTO 16 % (21-46); MONOCYTES PERCENT AUTO 8 % (4-13); Mean Corpuscular HGB 29.3 pg (26.0-34.0); Mean Corpuscular HGB Conc 33.2 g/dL (31.5-36.5); Mean Corpuscular Volume 89 fL (80-100); NEUTROPHILS ABSOLUTE AUTO 5.22 K/mm3 (1.96-9.15); NEUTROPHILS PERCENT AUTO 73 % (41-73); Platelet Count 255 K/mm3 (150-400); RDW Coefficient Variation 13.9 % (11.7-14.2); RDW Standard Deviation 44.3 fL (35.1-46.3); Red Blood Cell Count 4.16 M/mm3 (3.80-5.20); White Blood Cell Count 7.16 K/mm3 (4.00-11.30)
[2021-12-22 15:51] LABS: Alanine Aminotransfer (ALT/SGP 19 U/L (12-78); Albumin, Blood 2.7 g/dL (3.4-5.0); Albumin/Globulin Ratio 0.7 (0.8-1.8); Alk Phos 117 U/L (40-126); Anion Gap 7 mmol/L (6-16); Aspartate Aminotrans (AST/SGOT 21 U/L (12-37); Bilirubin, Total 0.3 mg/dL (0.1-1.0); Blood Urea Nitrogen 7 mg/dL (8-24); Bun/Creatinine Ratio 11.3 (12.0-20.0); CO2, Blood 25 mmol/L (21-32); Calcium, Blood 8.7 mg/dL (8.5-10.1); Chloride, Blood 109 mmol/L (98-108); Creatinine, Blood 0.62 mg/dL (0.40-1.00); Globulin, Blood 3.8 g/dL (2.2-4.0); Glomerular Filtration Rate >60 (60-); Glucose, Blood 95 mg/dL (70-99); Potassium, Blood 3.9 mmol/L (3.5-5.5); Sodium, Blood 141 mmol/L (136-145); Total Protein, Blood 6.5 g/dL (6.4-8.2)
== END | disposition home or self-care (01) ==
LOC: LAB SHORT 15:36
PROVIDERS: Physician Assistant
DX: R94.4 Abnormal results of kidney function studies (principal)
CPT/HCPCS: 80053; 85025

== ENCOUNTER 2021-12-24 10:21 | Emergency (ER) | payer OTHER ==
[~2021-12-24] VITALS: Ht 160 cm; Wt 59.0 kg
[2021-12-24 10:54] LABS: BASOPHILS ABSOLUTE AUTO 0.04 K/mm3 (0.00-0.23); BASOPHILS PERCENT AUTO 0 % (0-2); EOSINOPHILS ABSOLUTE AUTO 0.09 K/mm3 (0.00-0.68); EOSINOPHILS PERCENT AUTO 1 % (0-6); Hematocrit 41.1 % (33.0-51.0); Hemoglobin 13.2 g/dL (11.5-16.0); IMMATURE GRAN ABSOLUTE AUTO 0.02 K/mm3 (0.00-0.10); IMMATURE GRAN PERCENT AUTO 0 % (0-1); LYMPHOCYTES ABSOLUTE AUTO 1.28 K/mm3 (0.84-5.20); LYMPHOCYTES PERCENT AUTO 11 % (21-46); MONOCYTES PERCENT AUTO 8 % (4-13); Mean Corpuscular HGB 28.9 pg (26.0-34.0); Mean Corpuscular HGB Conc 32.1 g/dL (31.5-36.5); Mean Corpuscular Volume 90 fL (80-100); Mean Platelet Volume 9.9 fL (9.1-12.4); NEUTROPHILS ABSOLUTE AUTO 9.71 K/mm3 (1.96-9.15); NEUTROPHILS PERCENT AUTO 80 % (41-73); Platelet Count 259 K/mm3 (150-400); RDW Coefficient Variation 13.7 % (11.7-14.2); Red Blood Cell Count 4.56 M/mm3 (3.80-5.20); White Blood Cell Count 12.14 K/mm3 (4.00-11.30)
[2021-12-24 11:09] LABS: Anion Gap 7 mmol/L (6-16); Blood Urea Nitrogen 7 mg/dL (8-24); Bun/Creatinine Ratio 12.2 (12.0-20.0); CO2, Blood 26 mmol/L (21-32); Chloride, Blood 110 mmol/L (98-108); Creatinine, Blood 0.57 mg/dL (0.40-1.00); Glomerular Filtration Rate >60 (60-); Glucose, Blood 105 mg/dL (70-99); Potassium, Blood 3.8 mmol/L (3.5-5.5); Sodium, Blood 143 mmol/L (136-145)
[2021-12-24 11:57] LABS: Source, Urine Clean Catch
[2021-12-24 11:59] LABS: Bilirubin, Urine Neg (Neg); Blood, Urine 2+ (Neg); Glucose Qualitative, Urine Neg (Neg); Ketones, Urine Neg (Neg); Leukocyte Esterase, Urine Neg (Neg); Nitrite, Urine Neg (Neg); Protein, Urine Neg (Neg); Urobilinogen, Urine NORM (Normal); pH, Urine 6.5 (5.0-8.0)
[2021-12-24 12:05] LABS: Appearance, Urine Clear (Clear); Color, Urine Pale Yellow (P-Yellow)
[2021-12-24 12:07] LABS: Bacteria Few /hpf; Squamous Epithelial Cells Few /hpf (Few); White Blood Cells, Urine 0-2 /hpf (0-5)
[2021-12-24 12:08] LABS: Mucus Light (0-Heavy)
== END 2021-12-24 13:55 | disposition home or self-care (01) ==
LOC: ER 10:21
PROVIDERS: Emergency Medicine
DX: I10 Essential (primary) hypertension (principal); R31.29 Other microscopic hematuria; E03.9 Hypothyroidism, unspecified; Z86.73 Personal history of transient ischemic attack (TIA), and cerebral infarction without residual deficits; Z79.899 Other long term (current) drug therapy; E78.5 Hyperlipidemia, unspecified
CPT/HCPCS: 80048; 81001; 84484; 85025; 93005; 93010; 99283-25; P9612

== ENCOUNTER → 2022-01-02 | Outpatient (CLI) | payer OTHER ==
[2022-01-02 14:18] LABS: Source, Urine Clean Catch
[2022-01-02 17:03] LABS: Appearance, Urine Cloudy (Clear); Bilirubin, Urine Neg (Neg); Blood, Urine 3+ (Neg); Color, Urine Yellow (P-Yellow); Glucose Qualitative, Urine Neg (Neg); Ketones, Urine Neg (Neg); Leukocyte Esterase, Urine 3+ (Neg); Nitrite, Urine Pos (Neg); Protein, Urine 2+ (Neg); Urobilinogen, Urine NORM (Normal)
[2022-01-02 18:16] LABS: White Blood Cells, Urine 50-100 /hpf (0-5)
[2022-01-02 18:17] LABS: Bacteria Many /hpf; Red Blood Cells, Urine 0-2 /hpf (0-2); Squamous Epithelial Cells Rare /hpf (Few)
== END | disposition home or self-care (01) ==
LOC: LAB UVN 14:17 → EDSTATUS 14:35
PROVIDERS: Nurse Practitioner
DX: R30.0 Dysuria (principal)
CPT/HCPCS: 81001; 87077; 87086; 87186

== ENCOUNTER → 2022-02-06 | Outpatient (CLI) | payer OTHER ==
[2022-02-06 13:02] LABS: Source, Urine Clean Catch
[2022-02-06 15:27] LABS: Appearance, Urine Hazy (Clear); Bilirubin, Urine Neg (Neg); Blood, Urine 2+ (Neg); Color, Urine Yellow (P-Yellow); Glucose Qualitative, Urine Neg (Neg); Ketones, Urine Neg (Neg); Leukocyte Esterase, Urine Neg (Neg); Nitrite, Urine Neg (Neg); Protein, Urine 1+ (Neg); Specific Gravity, Urine 1.015 (1.003-1.022); Urobilinogen, Urine NORM (Normal)
[2022-02-06 16:46] LABS: Bacteria Few /hpf; Red Blood Cells, Urine 0-2 /hpf (0-2); Squamous Epithelial Cells Rare /hpf (Few); White Blood Cells, Urine 0-2 /hpf (0-5)
[2022-02-06 16:47] LABS: Amorphous Light (0-Heavy); Calcium Oxalate Crystals Mod /hpf
== END | disposition home or self-care (01) ==
LOC: LAB UVN 13:01 → EDSTATUS 15:02
PROVIDERS: Nurse Practitioner
DX: N18.30 Chronic kidney disease, stage 3 unspecified (principal); N39.0 Urinary tract infection, site not specified
CPT/HCPCS: 81001; 87077; 87086; 87186

== ENCOUNTER → 2022-02-08 | Outpatient (CLI) | payer OTHER ==
[2022-02-08 07:02] LABS: BASOPHILS ABSOLUTE AUTO 0.03 K/mm3 (0.00-0.23); BASOPHILS PERCENT AUTO 1 % (0-2); EOSINOPHILS ABSOLUTE AUTO 0.16 K/mm3 (0.00-0.68); EOSINOPHILS PERCENT AUTO 3 % (0-6); Hemoglobin 12.4 g/dL (11.5-16.0); IMMATURE GRAN ABSOLUTE AUTO 0.01 K/mm3 (0.00-0.10); IMMATURE GRAN PERCENT AUTO 0 % (0-1); LYMPHOCYTES ABSOLUTE AUTO 1.59 K/mm3 (0.84-5.20); LYMPHOCYTES PERCENT AUTO 26 % (21-46); MONOCYTES ABSOLUTE AUTO 0.55 K/mm3 (0.16-1.47); MONOCYTES PERCENT AUTO 9 % (4-13); Mean Corpuscular HGB 28.4 pg (26.0-34.0); Mean Corpuscular HGB Conc 32.6 g/dL (31.5-36.5); Mean Corpuscular Volume 87 fL (80-100); Mean Platelet Volume 10.5 fL (9.1-12.4); NEUTROPHILS ABSOLUTE AUTO 3.84 K/mm3 (1.96-9.15); NEUTROPHILS PERCENT AUTO 62 % (41-73); Platelet Count 160 K/mm3 (150-400); RDW Coefficient Variation 13.9 % (11.7-14.2); RDW Standard Deviation 44.6 fL (35.1-46.3); Red Blood Cell Count 4.36 M/mm3 (3.80-5.20); White Blood Cell Count 6.18 K/mm3 (4.00-11.30)
[2022-02-08 07:22] LABS: Alanine Aminotransfer (ALT/SGP 33 U/L (12-78); Albumin, Blood 2.9 g/dL (3.4-5.0); Albumin/Globulin Ratio 0.9 (0.8-1.8); Alk Phos 129 U/L (50-136); Anion Gap 7 mmol/L (6-16); Aspartate Aminotrans (AST/SGOT 25 U/L (12-37); Bilirubin, Total 0.6 mg/dL (0.1-1.0); Blood Urea Nitrogen 17 mg/dL (8-24); Bun/Creatinine Ratio 28.7 (12.0-20.0); CHOL/HDL RATIO 2.7; CO2, Blood 25 mmol/L (21-32); Chloride, Blood 108 mmol/L (98-108); Cholesterol 106 mg/dL (50-200); Creatinine, Blood 0.59 mg/dL (0.40-1.00); Ferritin, Serum 144 ng/mL (8-252); Globulin, Blood 3.4 g/dL (2.2-4.0); Glomerular Filtration Rate >60 (60-); Glucose, Blood 75 mg/dL (70-99); HDL Cholesterol 39 mg/dL (>39); Iron Serum 191 ug/dL (50-170); LDL/HDL RATIO 1.3; Low Density Lipoprotein Chol 50 mg/dL (0-110); Percent Saturation 81.3 % (15.0-50.0); Potassium, Blood 4.1 mmol/L (3.5-5.5); Sodium, Blood 140 mmol/L (136-145); Total Iron Binding Capacity 235 ug/dL (250-450); Total Protein, Blood 6.3 g/dL (6.4-8.2); Triglycerides 83 mg/dL (30-160); Very Low Density Lipoprot Chol 16 mg/dL (6-32)
[2022-02-08 07:42] LABS: Thyroid Stimulating Hormone 0.367 uIU/mL (0.360-4.800)
== END | disposition home or self-care (01) ==
LOC: LAB UVN 06:47 → EDSTATUS 15:03
PROVIDERS: Nurse Practitioner
DX: N18.31 Chronic kidney disease, stage 3a (principal); D63.1 Anemia in chronic kidney disease; E78.2 Mixed hyperlipidemia; E03.9 Hypothyroidism, unspecified; R73.01 Impaired fasting glucose
CPT/HCPCS: 80053; 80061; 82306; 82607; 82728; 82746; 83036; 83540; 83550; 83970; 84443; 85025

== ENCOUNTER → 2022-03-10 | Outpatient (CLI) | payer OTHER ==
[2022-03-10 19:59] LABS: BASOPHILS ABSOLUTE AUTO 0.03 K/mm3 (0.00-0.23); BASOPHILS PERCENT AUTO 0 % (0-2); EOSINOPHILS ABSOLUTE AUTO 0.14 K/mm3 (0.00-0.68); EOSINOPHILS PERCENT AUTO 2 % (0-6); Hematocrit 37.5 % (33.0-51.0); Hemoglobin 12.1 g/dL (11.5-16.0); IMMATURE GRAN ABSOLUTE AUTO 0.02 K/mm3 (0.00-0.10); IMMATURE GRAN PERCENT AUTO 0 % (0-1); LYMPHOCYTES PERCENT AUTO 19 % (21-46); MONOCYTES PERCENT AUTO 11 % (4-13); Mean Corpuscular HGB 27.8 pg (26.0-34.0); Mean Corpuscular HGB Conc 32.3 g/dL (31.5-36.5); Mean Corpuscular Volume 86 fL (80-100); Mean Platelet Volume 10.8 fL (9.1-12.4); NEUTROPHILS ABSOLUTE AUTO 5.43 K/mm3 (1.96-9.15); NEUTROPHILS PERCENT AUTO 68 % (41-73); Platelet Count 238 K/mm3 (150-400); RDW Coefficient Variation 14.6 % (11.7-14.2); RDW Standard Deviation 46.4 fL (35.1-46.3); Red Blood Cell Count 4.35 M/mm3 (3.80-5.20); White Blood Cell Count 8.02 K/mm3 (4.00-11.30)
== END | disposition home or self-care (01) ==
LOC: EDSTATUS 11:35 → LAB UVN 19:05
PROVIDERS: Family Medicine
DX: I48.0 Paroxysmal atrial fibrillation (principal)
CPT/HCPCS: 85025

== ENCOUNTER → 2022-03-17 | Outpatient (CLI) | payer OTHER ==
[2022-03-17 20:33] LABS: BASOPHILS ABSOLUTE AUTO 0.04 K/mm3 (0.00-0.23); BASOPHILS PERCENT AUTO 0 % (0-2); EOSINOPHILS ABSOLUTE AUTO 0.17 K/mm3 (0.00-0.68); EOSINOPHILS PERCENT AUTO 2 % (0-6); Hematocrit 37.7 % (33.0-51.0); Hemoglobin 12.3 g/dL (11.5-16.0); IMMATURE GRAN ABSOLUTE AUTO 0.03 K/mm3 (0.00-0.10); IMMATURE GRAN PERCENT AUTO 0 % (0-1); LYMPHOCYTES ABSOLUTE AUTO 1.77 K/mm3 (0.84-5.20); LYMPHOCYTES PERCENT AUTO 15 % (21-46); MONOCYTES ABSOLUTE AUTO 1.23 K/mm3 (0.16-1.47); MONOCYTES PERCENT AUTO 11 % (4-13); Mean Corpuscular HGB Conc 32.6 g/dL (31.5-36.5); Mean Corpuscular Volume 86 fL (80-100); Mean Platelet Volume 10.4 fL (9.1-12.4); NEUTROPHILS PERCENT AUTO 72 % (41-73); Platelet Count 275 K/mm3 (150-400); RDW Coefficient Variation 14.7 % (11.7-14.2); RDW Standard Deviation 46.6 fL (35.1-46.3); Red Blood Cell Count 4.39 M/mm3 (3.80-5.20); White Blood Cell Count 11.64 K/mm3 (4.00-11.30)
== END | disposition home or self-care (01) ==
LOC: EDSTATUS 11:36 → LAB UVN 19:35
PROVIDERS: Family Medicine
DX: I48.0 Paroxysmal atrial fibrillation (principal)
CPT/HCPCS: 85025

== ENCOUNTER → 2022-03-23 | Outpatient (CLI) | payer OTHER ==
[2022-03-23 13:07] LABS: Appearance, Urine Cloudy (Clear); Bilirubin, Urine Neg (Neg); Blood, Urine 4+ (Neg); Color, Urine Yellow (P-Yellow); Glucose Qualitative, Urine Neg (Neg); Ketones, Urine Neg (Neg); Leukocyte Esterase, Urine 3+ (Neg); Nitrite, Urine Pos (Neg); Protein, Urine 2+ (Neg); Specific Gravity, Urine 1.015 (1.003-1.022); Urobilinogen, Urine NORM (Normal)
[2022-03-23 13:19] LABS: Bacteria Many /hpf; Squamous Epithelial Cells Rare /hpf (Few); White Blood Cells, Urine TNTC /hpf (0-5)
== END | disposition home or self-care (01) ==
LOC: EDSTATUS 11:37 → LAB UVN 12:10
PROVIDERS: Nurse Practitioner
DX: N18.30 Chronic kidney disease, stage 3 unspecified (principal); R30.9 Painful micturition, unspecified
CPT/HCPCS: 81001; 87077; 87086; 87186

== ENCOUNTER → 2022-03-24 | Outpatient (CLI) | payer OTHER ==
[2022-03-24 20:51] LABS: BASOPHILS ABSOLUTE AUTO 0.03 K/mm3 (0.00-0.23); BASOPHILS PERCENT AUTO 0 % (0-2); EOSINOPHILS ABSOLUTE AUTO 0.19 K/mm3 (0.00-0.68); EOSINOPHILS PERCENT AUTO 3 % (0-6); Hematocrit 36.6 % (33.0-51.0); Hemoglobin 11.9 g/dL (11.5-16.0); IMMATURE GRAN ABSOLUTE AUTO 0.03 K/mm3 (0.00-0.10); IMMATURE GRAN PERCENT AUTO 0 % (0-1); LYMPHOCYTES ABSOLUTE AUTO 1.61 K/mm3 (0.84-5.20); LYMPHOCYTES PERCENT AUTO 23 % (21-46); MONOCYTES ABSOLUTE AUTO 0.88 K/mm3 (0.16-1.47); MONOCYTES PERCENT AUTO 12 % (4-13); Mean Corpuscular HGB 28.4 pg (26.0-34.0); Mean Corpuscular HGB Conc 32.5 g/dL (31.5-36.5); Mean Corpuscular Volume 87 fL (80-100); Mean Platelet Volume 11.4 fL (9.1-12.4); NEUTROPHILS ABSOLUTE AUTO 4.36 K/mm3 (1.96-9.15); NEUTROPHILS PERCENT AUTO 61 % (41-73); Platelet Count 272 K/mm3 (150-400); RDW Coefficient Variation 14.7 % (11.7-14.2); RDW Standard Deviation 47.3 fL (35.1-46.3); Red Blood Cell Count 4.19 M/mm3 (3.80-5.20)
== END | disposition home or self-care (01) ==
LOC: EDSTATUS 11:38 → LAB UVN 19:25
PROVIDERS: Family Medicine
DX: I48.0 Paroxysmal atrial fibrillation (principal)
CPT/HCPCS: 85025

== ENCOUNTER → 2022-06-15 | Outpatient (CLI) | payer OTHER | LOC: EDSTATUS 09:28 → LAB UVN 15:30 | DX: I48.0 Paroxysmal atrial fibrillation (principal); J44.9 Chronic obstructive pulmonary disease, unspecified; I10 Essential (primary) hypertension; I70.218 Atherosclerosis of native arteries of extremities with intermittent claudication, other extremity | CPT/HCPCS: 82525 ==

== ENCOUNTER → 2022-09-27 | Outpatient (CLI) | payer OTHER ==
[2022-09-27 16:41] LABS: Appearance, Urine Hazy (Clear); Bilirubin, Urine Neg (Neg); Blood, Urine 2+ (Neg); Color, Urine Yellow (P-Yellow); Glucose Qualitative, Urine Neg (Neg); Ketones, Urine Neg (Neg); Leukocyte Esterase, Urine 3+ (Neg); Nitrite, Urine Neg (Neg); Protein, Urine Neg (Neg); Urobilinogen, Urine NORM (Normal); pH, Urine 6.5 (5.0-8.0)
[2022-09-27 16:49] LABS: Bacteria Mod /hpf; Squamous Epithelial Cells Few /hpf (Few); White Blood Cells, Urine TNTC /hpf (0-5)
== END ==
LOC: EDSTATUS 10:18 → LAB UVN 15:30
PROVIDERS: Family Medicine
DX: N39.0 Urinary tract infection, site not specified (principal)
CPT/HCPCS: 81001; 87077; 87086; 87147; 87186

== ENCOUNTER 2023-07-06 17:43 | Emergency (ER) | payer OTHER ==
[~2023-07-06] VITALS: Ht 121.9 cm; Wt 68.0 kg
[2023-07-06 18:22] LABS: BASOPHILS ABSOLUTE AUTO 0.03 K/mm3 (0.00-0.23); BASOPHILS PERCENT AUTO 0 % (0-2); EOSINOPHILS ABSOLUTE AUTO 0.48 K/mm3 (0.00-0.68); EOSINOPHILS PERCENT AUTO 6 % (0-6); Hematocrit 36.9 % (33.0-51.0); Hemoglobin 12.5 g/dL (11.5-16.0); IMMATURE GRAN ABSOLUTE AUTO 0.03 K/mm3 (0.00-0.10); IMMATURE GRAN PERCENT AUTO 0 % (0-1); LYMPHOCYTES ABSOLUTE AUTO 1.41 K/mm3 (0.84-5.20); LYMPHOCYTES PERCENT AUTO 17 % (21-46); MONOCYTES ABSOLUTE AUTO 1.26 K/mm3 (0.16-1.47); MONOCYTES PERCENT AUTO 15 % (4-13); Mean Corpuscular HGB 29.3 pg (26.0-34.0); Mean Corpuscular HGB Conc 33.9 g/dL (31.5-36.5); Mean Corpuscular Volume 86 fL (80-100); Mean Platelet Volume 10.5 fL (9.1-12.4); NEUTROPHILS ABSOLUTE AUTO 5.26 K/mm3 (1.96-9.15); NEUTROPHILS PERCENT AUTO 62 % (41-73); Platelet Count 227 K/mm3 (150-400); RDW Coefficient Variation 14.6 % (11.7-14.2); RDW Standard Deviation 45.7 fL (35.1-46.3); Red Blood Cell Count 4.27 M/mm3 (3.80-5.20); White Blood Cell Count 8.47 K/mm3 (4.00-11.30)
[2023-07-06 18:39] LABS: Albumin/Globulin Ratio 0.7 (0.8-1.8); Bilirubin, Total 0.2 mg/dL (0.1-1.0); Bun/Creatinine Ratio 22.1 (12.0-20.0); Creatinine, Blood 0.77 mg/dL (0.40-1.00); Globulin, Blood 4.5 g/dL (2.2-4.0); Potassium, Blood 3.2 mmol/L (3.5-5.5); Total Protein, Blood 7.5 g/dL (6.4-8.2)
[2023-07-06 20:24] LABS: C-REACTIVE PROTEIN, EXT RANGE 0.905 mg/dL (0.000-0.300)
[2023-07-06 22:00] VITALS: BP 145/77
== END 2023-07-06 22:45 | disposition home or self-care (01) ==
LOC: ER 17:43
PROVIDERS: Student in an Organized Health Care Education/Training Program
DX: M86.651 Other chronic osteomyelitis, right thigh (principal); I10 Essential (primary) hypertension; E78.5 Hyperlipidemia, unspecified; E03.9 Hypothyroidism, unspecified; Z79.02 Long term (current) use of antithrombotics/antiplatelets; Z79.899 Other long term (current) drug therapy; M79.89 Other specified soft tissue disorders; Z89.612 Acquired absence of left leg above knee; Z89.611 Acquired absence of right leg above knee; T87.81 Dehiscence of amputation stump
CPT/HCPCS: 73720; 80053; 85025; 86140; 99282; A9579

== ENCOUNTER 2024-02-09 19:53 | Inpatient (IN) | payer OTHER ==
[~2024-02-09] VITALS: Ht 167.6 cm; Wt 81.7 kg
[2024-02-11 07:28] VITALS: BP 123/53
== END 2024-02-11 13:41 | DRG 872 ==
LOC: ER 19:53 → MEDS 19:54 → ENPENDDIS 02-11 11:05 → MEDS 02-11 13:41
PROVIDERS: ADMIT Student in an Organized Health Care Education/Training Program
DX: A41.9 Sepsis, unspecified organism (principal); N39.0 Urinary tract infection, site not specified; I13.0 Hypertensive heart and chronic kidney disease with heart failure and stage 1 through stage 4 chronic kidney disease, or unspecified chronic kidney disease; I50.32 Chronic diastolic (congestive) heart failure; I48.20 Chronic atrial fibrillation, unspecified; R65.20 Severe sepsis without septic shock; E11.22 Type 2 diabetes mellitus with diabetic chronic kidney disease; E11.51 Type 2 diabetes mellitus with diabetic peripheral angiopathy without gangrene; E03.9 Hypothyroidism, unspecified; I48.0 Paroxysmal atrial fibrillation; Z66 Do not resuscitate; N18.2 Chronic kidney disease, stage 2 (mild); Z86.73 Personal history of transient ischemic attack (TIA), and cerebral infarction without residual deficits; G25.81 Restless legs syndrome; I25.10 Atherosclerotic heart disease of native coronary artery without angina pectoris; G47.33 Obstructive sleep apnea (adult) (pediatric); I77.1 Stricture of artery; Z89.512 Acquired absence of left leg below knee; Z89.511 Acquired absence of right leg below knee; E78.2 Mixed hyperlipidemia; I1A.0 Resistant hypertension; Z88.8 Allergy status to other drugs, medicaments and biological substances; Z86.79 Personal history of other diseases of the circulatory system; Z79.2 Long term (current) use of antibiotics; Z79.01 Long term (current) use of anticoagulants; Z79.899 Other long term (current) drug therapy; Z79.890 Hormone replacement therapy

== ENCOUNTER 2024-09-15 07:14 | Day surgery (SDC) | payer OTHER ==
[~2024-09-15] VITALS: Ht 162.6 cm; Wt 70.5 kg
[~2024-09-15 07:14] MED LIST changes: +ACET500 PO; +AMLO10 PO; +AMOCLA875 PO; +ASPI81CH PO; +CYCL0.05OP BOTHEYES; +Clobetasol Prop50 ML TOP; +DULCOLAX400 MG/5 M PO; +ELIQUIS5 M2 PO; +ESTRADIOL CREAM; +Florastor250 MG PO; +LEVSOD75 PO; +METF500 PO; +MIRALAX17 GM PO; +Magic Bullet10 MG PR; +NYSTATIN15 GM TOP; +ONDA4 PO; +ROPI1 PO; -Synthroid88 MCG PO; +Vitamin D1000 UNI1 PO; +ZYRTEC10 M2 PO
[2024-09-15] MEDS ORDERED: Lactated Ringer's 1,000 ML IV ONE ×2 (07:26→08:44)
[2024-09-15] MEDS ORDERED: propofoL 50 ML IV ONE (07:26)
[2024-09-15] MEDS ORDERED: METO25ER (08:14)
[2024-09-15 10:21] VITALS: BP 138/63
== END 2024-09-15 10:18 | disposition home or self-care (01) ==
LOC: ORSCSDS 07:14
PROVIDERS: Internal Medicine Gastroenterology
PROC: 0DBL8ZX Excision of Transverse Colon, Via Natural or Artificial Opening Endoscopic, Diagnostic (ICD-10-PCS; principal; 2024-09-15 08:30)
DX: R93.3 Abnormal findings on diagnostic imaging of other parts of digestive tract (principal); C18.4 Malignant neoplasm of transverse colon; G47.33 Obstructive sleep apnea (adult) (pediatric); E03.9 Hypothyroidism, unspecified; I48.0 Paroxysmal atrial fibrillation; E78.2 Mixed hyperlipidemia; I11.0 Hypertensive heart disease with heart failure; I50.9 Heart failure, unspecified; I73.9 Peripheral vascular disease, unspecified; E11.22 Type 2 diabetes mellitus with diabetic chronic kidney disease; R53.1 Weakness; N18.9 Chronic kidney disease, unspecified; Z79.01 Long term (current) use of anticoagulants; Z79.899 Other long term (current) drug therapy; Z79.82 Long term (current) use of aspirin; Z79.890 Hormone replacement therapy
CPT/HCPCS: 70450; 80053; 81001; 82947; 85025; 87086; 88305; 93005; 93010; 99285-25; J2704; J7120